=== PATIENT | male | born 1995 | race Caucasian/White ===

== ENCOUNTER 2023-06-11 10:55 | Emergency (ER) | payer OTHER, SELFPAY ==
[2023-06-11 10:57] VITALS: BP 141/75; PULSE 127; RESP 20; TEMP 38.2; O2SAT 96; BMI 33.5
--- NOTE | 2023-06-11 11:05 | ED.GENADUL1 ---
HPI - General Adult General Chief complaint: Back Pain/Injury Stated complaint: BACK PAIN Time Seen by Provider: 06/11/23 10:57 Source: patient Mode of arrival: ambulance Limitations: no limitations History of Present Illness HPI narrative: 28-year-old male presents for not feeling well. He didn't realize he had a fever but this was found on triage. For the past few days he's had increased lower back pain. He has a history of low back pain from herniated disc. There was no injury or dysuria or hematuria. He's had some body aches. No cough or vomiting or sore throat. Related Data Allergies Allergy/AdvReac Type Severity Reaction Status Date / Time No Known Drug Allergies Allergy Verified 06/11/23 11:00 Review of Systems ROS Narrative A ten point review of systems is negative except as noted above. Exam Narrative Exam Narrative: Nurses note and vital signs reviewed and patient is not hypoxic. General: The patient appears well and in no apparent distress. Patient is resting comfortably on cart. Skin: Warm, dry, no pallor noted. There is no rash noted. Head: Normocephalic, atraumatic Eye: Normal conjunctiva, no drainage Ears, Nose, Mouth, and Throat: oral mucosa is moist. Nares patent. Cardiovascular: Regular Rate and Rhythm, tachycardic Respiratory: Patient is in no distress, no accessory muscle use, lungs are clear to auscultation, no wheezing, rales or rhonchi Back: non-tender, no CVA tenderness bilaterally to percussion. GI: soft and nontender Musculoskeletal: The patient has no evidence of calf tenderness, no pitting edema, symmetrical pulses noted bilaterally Neurological: A&O, normal speech Psychiatric: Cooperative Constitutional Vital Signs, click to edit/add: Last Vital Signs Temp 99.2 F 06/11/23 12:15 Pulse 111 H 06/11/23 12:15 Resp 14 06/11/23 12:15 BP 101/46 L 06/11/23 12:15 Pulse Ox 96 06/11/23 12:15 O2 Del Method Room Air 06/11/23 12:15 Course Vital Signs Vital signs: Vital Signs Temperature 100.7 F H 06/11/23 10:57 Pulse Rate 127 H 06/11/23 10:57 Respiratory Rate 20 06/11/23 10:57 Blood Pressure 141/75 06/11/23 10:57 Pulse Oximetry 96 06/11/23 10:57 Temperature 99.2 F 06/11/23 12:15 Pulse Rate 111 H 06/11/23 12:15 Respiratory Rate 14 06/11/23 12:15 Blood Pressure 101/46 L 06/11/23 12:15 Pulse Oximetry 96 06/11/23 12:15 Oxygen Delivery Method Room Air 06/11/23 12:15 Medical Decision Making MDM Narrative Medical decision making narrative: workup including Covid test is negative. He was given IV fluids and Tylenol and his heart rate has come down as did his temperature. He feels improved and will be discharged home. My clinical impression is that he has a vviral illness and he was recommended Tylenol and Motrin. Antibiotic not indicated. Treatment diagnosis and follow-up were discussed with the patient. Differential Diagnosis Differential Diagnosis: Covid, urinary tract infection, viral illness Lab Data Lab results reviewed: Yes I reviewed the patient's lab results Labs: Lab Results 06/11/23 06/11/23 06/11/23 Range/Units 11:12 11:15 11:18 WBC 13.1 H (4.0-11.0) 10^3/uL RBC 5.16 (4.70-6.10) 10^6/uL Hgb 15.4 (14.0-18.0) g/dL Hct 45.1 (42.0-54.0) % MCV 87.4 (80.0-94.0) fL MCH 29.8 (25.9-34.0) pg MCHC 34.1 (29.9-35.2) g/dL RDW 12.2 (11.0-15.0) % Plt Count 276 (150-450) 10^3/uL MPV 9.7 (9.5-13.5) fL Neut % (Auto) 87.4 H (43.0-75.0) % Lymph % (Auto) 2.4 L (20.5-60.0) % [place] % (Auto) 8.5 (1.7-12.0) % Eos % (Auto) 0.7 L (0.9-7.0) % Baso % (Auto) 0.5 (0.2-2.0) % Neut # (Auto) 11.5 H (1.4-6.5) 10^3/uL Lymph # (Auto) 0.3 L (1.2-3.8) 10^3/uL [place] # (Auto) 1.1 H (0.3-0.8) 10^3/uL Eos # (Auto) 0.1 (0.0-0.7) 10^3/uL Baso # (Auto) 0.1 (0.0-0.1) 10^3/uL Abs Immat Gran (auto) 0.07 H (0.00-0.03) 10^3/uL Imm/Tot Granulo (auto) 0.5 (0.0-0.5) % Sodium 132 L (136-145) mmol/L Potassium 3.7 (3.5-5.1) mmol/L Chloride 99 (98-107) mmol/L Carbon Dioxide 27.0 (21.0-32.0) mmol/L Anion Gap 9.7 BUN 15.0 (7.0-18.0) mg/dL Creatinine 1.05 (0.70-1.30) mg/dL Est GFR ( Amer) >60 (>=60) Est GFR (Non-Af Amer) >60 (>=60) BUN/Creatinine Ratio 14.3 Glucose 82 (74-106) mg/dL Calcium 9.4 (8.5-10.1) mg/dL Urine Color Lt. yellow (YELLOW) Urine Clarity Clear (CLEAR) Urine pH 7.5 (5.0-9.0) Ur Specific [place] 1.020 (1.005-1.025) Urine Protein Negative (NEG/TRACE) mg/dL Urine Glucose (UA) Negative (NEGATIVE) mg/dL Urine Ketones Negative (NEGATIVE) mg/dL Urine Occult Blood Negative (NEGATIVE) Urine Nitrite Negative (NEGATIVE) Urine Bilirubin Negative (NEGATIVE) Urine Urobilinogen 0.2 (0.2-1.0) EU/dL Ur Leukocyte Esterase Negative (NEGATIVE) Urine RBC 0-2 (0-2) #/HPF Urine WBC 0-2 A (NONE SEEN) #/HPF Ur Squamous Epith Cells Rare (NONE/RARE) #/LPF Urine Crystals None seen (None Seen) #/HPF Urine Bacteria None seen (NONE SEEN) #/HPF Urine Casts None seen (NONE SEEN) #/LPF Urine Mucus Small A (NONE SEEN) SARS-CoV-2 (PCR) Negative (NEGATIVE) Discharge Plan Discharge Chief Complaint: Back Pain/Injury Clinical Impression: Viral illness Patient Disposition: Home, Self-Care Time of Disposition Decision: 12:18 Condition: Good Mode of Transportation: Private Vehicle Instructions: Viral Syndrome (ED) Stand Alone Forms: Portal Instructions Referrals: Physician,Non-Staff, MD [Primary Care Provider] - 1 week
[2023-06-11] MEDS: 0.9 % SODIUM CHLORIDE 1,000 ML 1000 ML IV (11:20)
[2023-06-11] MEDS: ACETAMINOPHEN 325 MG TABLET 650 MG PO (11:22)
[2023-06-11] MEDS: MORPHINE SULFATE 4 MG/ML VIAL IV (11:27)
[2023-06-11 11:28] LABS: Basophils Absolute Auto 0.1 10^3/uL (0.0-0.1); Basophils Percent Auto 0.5 % (0.2-2.0); Eosinophils Absolute Auto 0.1 10^3/uL (0.0-0.7); Eosinophils Percent Auto 0.7 % (0.9-7.0); Hematocrit 45.1 % (42.0-54.0); Hemoglobin 15.4 g/dL (14.0-18.0); Immature Granulocytes Abs Auto 0.07 10^3/uL (0.00-0.03); Immature Granulocytes Pct Auto 0.5 % (0.0-0.5); Lymphocytes Absolute Auto 0.3 10^3/uL (1.2-3.8); Lymphocytes Percent Auto 2.4 % (20.5-60.0); Mean Corpuscular HGB Conc 34.1 g/dL (29.9-35.2); Mean Corpuscular Hemoglobin 29.8 pg (25.9-34.0); Mean Corpuscular Volume 87.4 fL (80.0-94.0); Mean Platelet Volume 9.7 fL (9.5-13.5); Monocytes Absolute Auto 1.1 10^3/uL (0.3-0.8); Monocytes Percent Auto 8.5 % (1.7-12.0); Neutrophils Absolute Auto 11.5 10^3/uL (1.4-6.5); Neutrophils Percent Auto 87.4 % (43.0-75.0); Platelet Count 276 10^3/uL (150-450); Red Blood Count 5.16 10^6/uL (4.70-6.10); Red Cell Distribution Width 12.2 % (11.0-15.0); White Blood Count 13.1 10^3/uL (4.0-11.0)
[2023-06-11 11:34] LABS: Anion Gap 9.7; BUN Creatinine Ratio 14.3; Calcium 9.4 mg/dL (8.5-10.1); Chloride 99 mmol/L (98-107); Estimated GFR (African America >60 (>=60); Estimated GFR (Non-African Ame >60 (>=60); Glucose 82 mg/dL (74-106); Potassium 3.7 mmol/L (3.5-5.1); Sodium 132 mmol/L (136-145)
[2023-06-11 11:41] LABS: Bilirubin Urine NEGATIVE (NEGATIVE); Blood Urine NEGATIVE (NEGATIVE); Clarity Urine CLEAR (CLEAR); Color Urine LT. YELLOW (YELLOW); Glucose Urine UA NEGATIVE (NEGATIVE); Ketones Urine NEGATIVE (NEGATIVE); Leukocyte Esterase Urine NEGATIVE (NEGATIVE); Nitrite Urine NEGATIVE (NEGATIVE); Protein Urine NEGATIVE (NEG/TRACE); Urobilinogen Urine 0.2 EU/dL (0.2-1.0); pH Urine 7.5 (5.0-9.0)
[2023-06-11 11:45] LABS: Bacteria Urine NONE SEEN #/HPF (NONE SEEN); RBC Urine 0-2 #/HPF (0-2); WBC Urine 0-2 #/HPF (NONE SEEN)
[2023-06-11 11:46] LABS: Cast Seen? NONE SEEN #/LPF (NONE SEEN); Crystals Seen? None Seen #/HPF (None Seen); Mucus Urine SMALL (NONE SEEN); Squamous Epithelial Cell Urine RARE #/LPF (NONE/RARE)
[2023-06-11 11:50] LABS: SARS-CoV-2 Ag NEGATIVE (NEGATIVE)
[2023-06-11 12:15] VITALS: BP 101/46; PULSE 111; RESP 14; TEMP 37.3; O2SAT 96
[2023-06-12 11:02] LABS: SARS-CoV-2 NAA INVALID (NOT DETECTE)
--- OUTSIDE RECORDS SUMMARY | 2023-07-22 13:58 | XMS_ITS | CCD ---
Author Name Unknown Address [address] [place] [address] Organization [facility] Care Team Providers Care Process Control Operator Name Role Phone Link, Micah Rivera Primary Care Physician [phone] Link, DO Micah Rivera Primary Care Provider [phone] MD Yasmany Parson Attending Provider [phone] SHEBA Galicia Emergency Provider [phone] ALLI Marrero Attending Provider [phone] DO Steve Ro Emergency Provider Link, DO Micah Rivera Primary Care Provider [phone] Link, DO Micah Rivera Attending Provider Link, DO Micah C Primary Care Provider [phone] MD Oleg Rondon Jr Emergency Provider Kapil Robledo Unavailable Link, DO Micah Rivera Primary Care Provider [phone] MD Dung Todd Emergency Provider MD Saran Kaba Admit Provider MD Saran Kaba Attending Provider KATHERIN JAVIER Referring Unavailable LINK, MICAH Primary Care Unavailable Link, Micah Primary Care Provider LINK, MICAH Primary Care Unavailable Lyly Joseph Unavailable Jennifer Marrero Attending Unavailable Jennifer Marrero Admitting Unavailable Micah Frost Primary Care Unavailable Sandra Galicia Attending Unavailable Sandra Galicia Admitting Unavailable Link, Micah C Primary Care Unavailable Link, Micah C Primary Care Unavailable Saran Kaba Attending UnavailSaran Louie Admitting UnavailMicah Grullon Primary Care Unavailable Oleg Rondon Jr Admitting Unavailable Oleg Rondon Jr Attending Unavailable Steve Ro Admitting Unavailable Steve Ro Attending Unavailable Micah Frost Primary Care Unavailable Steve Ro Admitting Unavailable Steve Ro Attending Unavailable Micah Frost Primary Care Unavailable Micah Frost Primary Care Unavailable Santosh Micah Nicole Admitting Unavailable Micah Frost Attending Unavailable Dara Gant Unavailable Allergies Allergy Classification Reported Allergen(s) Allergy Type Date of Onset Reaction(s) Facility (1 source) Grass pollen Propensity to adverse reactions to drug 01-25-2022 [facility] Medications Current Medications Medication Drug Class(es) Dates Sig (Normalized) Sig (Original) amoxicillin 500 mg oral capsule (1 source) Penicillin-class Antibacterial Start: 05-16-2023 take 1 capsule by mouth every eight hours Amoxicillin 500 MG 1 capsule Orally tid for 10 day(s) May, Active celecoxib (1 source) Nonsteroidal Anti-inflammatory Drug CeleBREX Active cyclobenzaprine hydrochloride 5 mg oral tablet (2 sources) Muscle Relaxant Start: 05-22-2022 End: 05-27-2022 take 1 tablet by mouth twice daily as needed for muscle spasms cyclobenzaprine (FLEXERIL) 5 MG tablet Take 1 tablet by mouth 2 times daily as needed for Muscle spasms 10 tablet 0 05/22/2022 05/27/2022 Active Start: 05-22-2022 End: 05-22-2022 cyclobenzaprine (FLEXERIL) t ablet 10 mg 12 hr dextromethorphan hydrobromide 30 mg / guaiFENesin 600 mg extended release oral tablet (1 source) Uncompetitive U-simcbb-S-aspartate Receptor Antagonist, Sigma-1 Agonist Start: 06-03-2022 take 1 tablet by mouth every twelve hours Mucinex DM 30-600 MG 1 tablet as needed Orally every 12 hrs May, Active lidocaine 40 mg/ml topical cream (1 source) Antiarrhythmic, Amide Local Anesthetic Start: 03-13-2022 lidocaine (LMX) 4 % cream Indications: Lumbar radiculopathy Apply a half dollar sized amount to intact skin topically up to twice daily as needed for pain 45 g 1 03/13/2022 Active methylPREDNISolone 4 mg oral tablet (2 sources) Corticosteroid Start: 06-03-2022 methylPREDNISolone 4 MG as directed Orally Once a day for 6 days May, Active Start: 05-22-2022 methylPREDNISo lone (MEDROL, TAMELA,) 4 MG tablet Take 1 tablet by mouth See Admin Instructions Take by mouth. 21 tablet 0 05/22/2022 Active 24 hr nicotine 0.875 mg/hr transdermal system (2 sources) Cholinergic Nicotinic Agonist Start: 03-25-2022 Nicotine Active 1 EACH TRANSDERML Daily March 25, 2022 12:00am Start: 03-25-2022 Nicotine Activ e 1 EACH TRANSDERML Daily March 25, 2022 12:00am omeprazole 20 mg delayed release oral capsule (1 source) Proton Pump Inhibitor take 2 capsules by mouth once daily omeprazole (PRILOSEC) 20 MG delayed release capsule Take 40 mg by mouth daily 0 Active pantoprazole 40 mg extended release oral tablet (1 source) Proton Pump Inhibitor Start: 0 take 1 tablet by mouth once daily pantoprazole 40 mg Oral EC Tab 40 mg = 1 tab(s), Oral, Daily, # 14 tab(s), Refills(s) 0 Start Date: 02/13/20 Status: Ordered predniSONE 10 mg oral tablet (15 sources) Start: 2 predniSONE 10 MG 3 tablets a day for 3 days, 2 tablets a day for 3 days, 1 tablets a day for 3 days Orally Once a day for 9 day(s) Nov, Active Start: 09-09-2021 End: 10-27-2021 take 20 mg by mouth once daily Prednisone Discontinued 20 MG PO Daily September 09, 2021 1:00am October 27, 2021 11:25pm Start: 04-12-2021 End: 09-09-2021 take 50 mg by mouth once daily Prednisone Discontinued 50 MG PO Daily 12 06April 12, 2021 12:00am September 09, 2021 7:27pm sertraline 50 mg oral tablet (1 source) Serotonin Reuptake Inhibitor Start: 02-08-2020 take 1 tablet by mouth once daily sertraline 50 mg Tab 50 mg = 1 tab(s), Oral, Daily, Refills(s) 0 Start Date: 02/08/20 Status: Ordered traZODone hydrochloride 50 mg oral tablet (2 sources) Serotonin Reuptake Inhibitor Start: 03-25-2022 take 50 mg by mouth once daily at bedtime Trazodone Active 50 MG PO Daily at bedtime March 25, 2022 12:00am Start: 03-25-2022 take 50 mg by mouth once daily at bedtime Trazodone Active 50 MG PO Daily at bedtime March 25, 2022 12:00am 24 hr venlafaxine 75 mg extended release oral capsule (13 sources) Serotonin and Norepinephrine Reuptake Inhibitor Start: 03-25-2022 take 75 mg by mouth once daily Venlafaxine Active 75 MG PO Daily March 25, 2022 12:00am Start: 03-25-2022 take 75 mg by mouth once daily Venlafaxine Active 75 MG PO Daily March 25, 2022 12:00am Start: 09-09-2021 End: 03-22-2022 take 37.5 mg by mouth once daily Venlafaxine Discontinued 37.5 MG PO Daily September 09, 2021 1:00am March 22, 2022 5:53pm take 1 capsule by [facility] every twenty-four hours Effexor XR 75 MG 1 capsule with food Orally Once a day Active Effexor Active Completed/Discontinued Medications Medication Drug Class(es) Dates Sig (Normalized) Sig (Original) acetaminophen 325 mg / HYDROcodone bitartrate 5 mg oral tablet (10 sources) Opioid Agonist Start: 01-07-2022 End: 03-22-2022 take 1 tablet by mouth every six hours Hydrocodone-Acetami nophen Discontinued 1 TAB PO Q6H 10 January 07, 2022 March 22, 2022 5:53pm Start: 10-28-2021 End: 01-07-2022 take 1 tablet by mouth three times daily Hydrocodone-Acetaminophen Discontinued 1 TAB PO Three times daily 10 October 28, 2021 January 07, 2022 2:45am bismuth subsalicylate 262 mg oral tablet (7 sources) Bismuth Start: 10-28-2021 End: 01-07-2022 take 2 tablets by mouth four times daily Bismuth Subsalicylate (Pepto-Bismol) 262 mg tablet,chewable Discontinued 2 TAB PO Four times daily 24 3 October 28, 2021 12:00am January 07, 2022 2:45am ciprofloxacin 500 mg oral tablet (6 sources) Quinolone Antimicrobial Start: 10-28-2021 End: 01-07-2022 take 1 tablet by mouth every two hours Ciprofloxacin Hcl (Cipro) 500 mg tablet Discontinued 500 MG PO Twice daily October 28, 2021 12:00am January 07, 2022 2:45am administer dose at least 2 hrs before/6 hrs after dairy products, calcium, zinc, and/or iron-containing products diclofenac sodium 75 mg delayed release oral tablet (3 sources) Nonsteroidal Anti-inflammatory Drug Start: 01-07-2022 End: 03-22-2022 take 75 mg by mouth every twelve hours Diclofenac Sodium Discontinued 75 MG PO Q12H January 07, 2022 12:00am March 22, 2022 5:53pm dicyclomine hydrochloride 10 mg oral capsule (7 sources) Anticholinergic Start: 10-28-2021 End: 03-22-2022 take 10 mg by mouth twice daily Dicyclomine Discontinued 10 MG PO Twice daily October 28, 2021 12:00am March 22, 2022 5:53pm ergocalciferol 1.25 mg oral capsule (7 sources) Provitamin D2 Compound Start: 09-09-2021 End: 10-27-2021 take 1 capsule by mouth once daily Ergocalciferol (Vitamin D2) (Vitamin D2) 1,250 mcg (50,000 unit) capsule Discontinued 1250 MCG PO Daily September 09, 2021 1:00am October 27, 2021 11:25pm hydrocortisone 10 mg/ml / neomycin 3.5 mg/ml / polymyxin b 15310 unt/ml otic solution (2 sources) Aminoglycoside Antibacterial, Polymyxin-class Antibacterial, Corticosteroid Start: 10-12-2022 Neomycin-Polymyxin- HC 3.5-55365-4 4 drops into affected ear Otic Three times a day for 7 day(s) Oct, Not-Taking 2 ml ketorolac tromethamine 30 mg/ml cartridge (1 source) Nonsteroidal Anti-inflammatory Drug, Cyclooxygenase Inhibitor Start: 05-22-2022 End: 05-22-2022 ketorolac (TORADOL) injection 60 mg meclizine hydrochloride 12.5 mg oral tablet (8 sources) Antiemetic Start: 05-22-2022 End: 05-22-2022 meclizine (ANTIVERT) tablet 12.5 mg Start: 04-10-2021 End: 09-09-2021 take 25 mg by mouth three times daily Meclizine Discontinued 25 MG PO Three times daily April 10, 2021 12:00am September 09, 2021 7:27pm ondansetron 4 mg disintegrating oral tablet (7 sources) Serotonin-3 Receptor Antagonist Start: 10-28-2021 End: 01-07-2022 take 4 mg by mouth every six hours Ondansetron Discontinued 4 MG PO Q6H October 28, 2021 12:00am January 07, 2022 2:45am traMADol hydrochloride 50 mg oral tablet (7 sources) Opioid Agonist Start: 09-09-2021 End: 10-27-2021 take 50 mg by mouth once daily Tramadol Discontinued 50 MG PO Daily September 09, 2021 1:00am October 27, 2021 11:25pm Problems Active Problems Problem Classification Problem Date Documented Date Episodic/Chronic Conditions associated with dizziness or vertigo (15 sources) Dizziness; Translations: [Dizziness and giddiness] 04-10-2021 Episodic Headache; including migraine (7 sources) Migraine; Translations: [Migraine, unspecified, not intractable, without status migrainosus] 04-12-2021 Chronic Immunizations and screening for infectious disease (1 source) Contact with and (suspected) exposure to other viral communicable diseases Episodic Mood disorders (5 sources) Depressive disorder; Translations: [Depression] Onset: 03-22-2022 03-23-2022 Chronic Mood disorders (1 source) Mood disorders; Translations: [Depression, unspecified] Onset: 03-22-2022 Nausea and vomiting (6 sources) Vomiting; Translations: [Vomiting, unspecified] 10-28-2021 Episodic Noninfectious gastroenteritis (7 sources) Enteritis of small intestine; Translations: [Noninfective gastroenteritis and colitis, unspecified] 10-28-2021 Episodic Osteoarthritis (4 sources) Arthropathy of left hip joint; 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, left hip] Chronic Other circulatory disease (1 source) Elevated blood-pressure reading, without diagnosis of hypertension Episodic Other ear and sense organ disorders (7 sources) Bilateral tinnitus; Translations: [Tinnitus, bilateral] 04-12-2021 Episodic Other ear and sense organ disorders (1 source) Impacted cerumen, bilateral Episodic Other non-traumatic joint disorders (7 sources) Hip pain; Translations: [Pain in left hip] 09-09-2021 Episodic Other upper respiratory infections (3 sources) Acute laryngitis; Translations: [Acute pharyngitis, unspecified] Episodic Residual codes; unclassified (1 source) Pain, unspecified; Translations: [Pain, unspecified] Onset: 04-25-2022 Episodic Spondylosis; intervertebral disc disorders; other back problems (7 sources) Prolapsed lumbar intervertebral disc; Translations: [Other intervertebral disc displacement, lumbar region] 01-07-2022 Chronic Spondylosis; intervertebral disc disorders; other back problems (15 sources) Stenosis of lumbar vertebral foramen; Translations: [Spinal stenosis, lumbar region without neurogenic claudication] Onset: 01-07-2022 10-28-2021 Episodic Unclassified (1 source) 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; Translations: [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] Onset: 11-12-2021 Unclassified (1 source) R11.10 - Vomiting, unspecified; Translations: [R11.10 - Vomiting, unspecified] Onset: 10-28-2021 Unclassified (1 source) R10.30 - Lower abdominal pain, unspecified; Translations: [R10.30 - Lower abdominal pain, unspecified] Onset: 10-28-2021 Unclassified (1 source) M62.830 - Muscle spasm of back; Translations: [M62.830 - Muscle spasm of back] Onset: 09-18-2021 Unclassified (1 source) M25.552 - Pain in left hip; Translations: [M25.552 - Pain in left hip] Onset: 09-09-2021 Past or Other Problems Problem Classification Problem Date Documented Da te Episodic/Chronic Abdominal pain (11 sources) Abdominal pain; Translations: [Unspecified abdominal pain] Onset: 10-28-2021 10-28-2021 Episodic Results Test Name Value Interpretation Reference Range Facil ity Quick Strepon 05-16-2023 S. pyogenes Org specific cx Ql (Throat) Negative [facility] leemail Other Quick Strep [facility] P [employer] Other COVID Quick Testingon 2021 Result Negative [facility] ONtheAIR Other Quick Strepon 06-03-2022 S. pyogenes Org specific cx Ql (Throat) Negative [facility] leemail Other Quick Strep [facility] [employer] Other ECG 12 lead ECGon 03-23-2022 ECG 12 lead ECG [facility] [place] [address] [place] [address] Electrocardiograph Report Signed Patient: Harry Vargas MR#: [id number] : 1995 Acct:[id number] Age/Sex: 27 / M ADM Date: 03/22/22 Loc: Room: [address] [place] [address] Type: DIS IN Attending Dr: Saran Kaba MD Ordering Provider: Alcon Kaba MD Date of Service: 03/23/22 ECG/ECG 12 lead ECG: antipsychotics Copies to: Test Reason : Blood Pressure : / mmHG Vent. Rate : 082 BPM Atrial Rate : 082 BPM P-R Int : 150 ms QRS Dur : 090 ms QT Int : 360 ms P-R-T Axes : 069 086 047 degrees QTc Int : 420 ms Normal sinus rhythm with sinus arrhythmia Normal ECG When compared with ECG of 10-APR-2021 00:46, No significant change was found Confirmed by OLEG LI MD ([id number]) on 03/24/2022 12:29:51 PM Referred By: Electronically Signed By:OLEG LI MD Transcribed By: MUS Signed By Oleg Li MD [id number] Normal [facility] Amphetamine Screen Ql (U)Ord ered By: Dung Todd on 03-22-2022 Amphetamines Ql (U) Negative Negative [facility] Automated erythrocytes count in urine sediment (number/area)Ordered By: Dung Todd on 03-22-2022 RBC Auto (Urine sed) [#/Area] 1-2 [HPF] 0-4 [facility] Automated leukocytes count i n urine sediment (number/area)Ordered By: Dung Todd on 03-22-2022 WBC Auto (Urine sed) [#/Area] 0-1 [HPF] 0-4 [facility] Barbiturates [Presence] in U rineOrdered By: Dung Todd on 03-22-2022 Barbiturates Ql (U) Negative Negative [facility] Basophils Auto (Bld) [#/Vol] Ordered By: Dung Todd on 03-22-2022 Basophils (Bld) [#/Vol] 0.1 10*3/uL 0.0-0.2 [facility] Basophils/100 WBC Auto (Bld) Ordered By: Dung Todd on 03-22-2022 Basophils/100 WBC (Bld) 0.5 % . F [facility] Benzodiazepines [Presence] i n UrineOrdered By: Dung Todd on 03-22-2022 Benzodiazepines Ql (U) Negative Negative [facility] Bilirubin Test strip Ql (U)O rdered By: Dung Todd on 03-22-2022 Bilirubin Ql (U) Negative Negative [facility] Blood hemoglobin measurement (mass/volume)Ordered By: Dung Todd on 03-22-2022 Hemoglobin (Bld) [Mass/Vol] 17.2 g/dL 13.0-17. 0 [facility] Blood leukocytes automated c ount (number/volume)Ordered By: Dung Todd on 03-22-2022 WBC (Bld) [#/Vol] 11.2 10*3/uL 4.5-11.0 [facility] Body fluid albumin measureme nt (mass/volume)Ordered By: Dung Todd on 03-22-2022 Albumin (Body fld) [Mass/Vol] 4.4 g/dL 3.2-5. 5 [facility] COVID-19 Antigenon 2 COVID-19 Antigen Healthcare Worker?: N Reference Range: Negative Negative results, from patients with symptom onset beyond five days, should be treated as presumptive and confirmation with a molecular assay, if necessary, for patient management, may be performed. Negative results do not rule out COVID-19 and should not be used as the sole basis for treatment or patient management decisions, including infection control decisions. Negative results should be considered in the context of a patient's recent exposures, history and the presence of clinical signs and symptoms consistent with COVID-19. The Sonia SARS Antigen CHERIE does not differentiate between SARS-CoV and SARS-CoV-2. This test was developed and its performance characteristic determined by [employer] and validated at [facility]. This test has not been FDA cleared or approved. This test has been authorized by FDA under an Emergency Use Authorization (EUA). This test has been validated in accordance with the FDA's Guidance Document (Policy for Diagnostics Testing in Laboratories Certified to Perform High Complexity Testing under CLIA prior to Emergency Use Authorization for Coronavirus Disease-2019 during the Public Health Emergency) issued on November 04, 2019. This test is only authorized for the duration of time the declaration that circumstances exist justifying the authorization of the emergency use of in vitro diagnostic tests for detection of SARS-CoV-2 virus and/or diagnosis of COVID-19 infection under section 564(b)(1) of the Act, 21 U.S.C. 360bbb-3(b)(1), unless the authorization is terminated or revoked sooner. SARS-CoV+SARS-CoV-2 (COVID-19) Ag [Presence] in Respiratory specimen by Rapid immunoassay Negative for SARS Antigen by CHERIE PERFORMED BY: [place] [id number] PATHOLOGIST INTERNET ARCHITECT ANASTACIO CHAO M.D. [facility] Comment on above: Performed By: #### C DT #### [address] COVID-19 SOFIAOrdered By: Kellie Todd on 03-22-2022 SARS-CoV+SARS-CoV-2 (COVID-1 9) Ag IA.rapid Ql (Resp) Negative Negative [facility] Comment on above: This is a duplicate Sonia SARS Antigen (CHERIE) result to be used for statistical tracking purpose only. Cannabinoids [Presence] in U rine by Screen methodOrdered By: Dung Todd on 03-22-2022 Cannabinoids Screen Ql (U) Negative Negative [facility] Comment on above: These are unconfirme d results and should not be used for legal purposes. Drug Cut-Off Concentration: AMPH 1000 ng/mL CLAIRE 200 ng/mL ABIODUN 200 ng/mL COCM 300 ng/mL OP 300 ng/mL PCP 25 ng/mL THC 20 ng/mL Cholesterol [Mass/volume] in Serum or PlasmaOrdered By: Alcon Kaba on 03-22-2022 Cholesterol [Mass/Vol] 193 mg/dL 140-200 [facility] Comment on above: Chol less than 200 m g/dl low risk Chol 201-239 mg/dl borderline risk Chol 240 mg/dl and greater high risk Cholesterol in LDL Calc [Mas s/Vol]Ordered By: Alcon Kaba on 03-22-2022 Cholesterol in LDL [Mass/Vol] 83 mg/dL 0-100 [facility] Comment on above: LDL ATP III CLASSIFI CATION LDL less than 100 mg/dL Optimal LDL 100-129 mg/dL Near or above optimal LDL 130-159 mg/dL Borderline high LDL 160-189 mg/dL High LDL greater than 189 mg/dL Very high Cholesterol in VLDL Calc [Ma ss/Vol]Ordered By: Alcon Kaba on 03-22-2022 Cholesterol in VLDL [Mass/Vol] 69 mg/dL [facility] Color Auto (U)Ordered By: Kellie Todd on 03-22-2022 Color (U) Yellow Yellow [facility] Complete Blood Count Auto Di ffon 03-22-2022 Basophils (Bld) [#/Vol] 0.1 10*3/uL Normal 0.0-0.2 [facility] Comment on above: Result Comment: PERF ORMED BY: [place] [id number] PATHOLOGIST INTERNET ARCHITECT ANASTACIO CHAO M.D. Performed By: #### R SHAQ PANEL UPP., BIOFIRECOVNOTDE #### [facility] [address] Basophils/100 WBC (Bld) 0.5 % Normal . F [facility] Comment on above: Performed By: #### R SHAQ PANEL UPP., BIOFIRECOVNOTDE #### [address] Eosinophils (Bld) [#/Vol] 0.1 10*3/uL Normal 0.0-0.45 [facility] Comment on above: Performed By: #### R SHAQ PANEL UPP., BIOFIRECOVNOTDE #### [address] Eosinophils/100 WBC (Bld) 0.9 % Normal . [facility] Comment on above: Performed By: #### R SHAQ PANEL UPP., BIOFIRECOVNOTDE #### [address] Erythrocyte distribution wid th (RBC) [Ratio] 12.7 % Normal 12.0-14.8 [facility] Comment on above: Performed By: #### R SHAQ PANEL UPP., BIOFIRECOVNOTDE #### [address] Hematocrit (Bld) [Volume fraction] 50.2 % High 38.8-50.0 [facility] Comment on above: Performed By: #### R SHAQ PANEL UPP., BIOFIRECOVNOTDE #### [address] Hemoglobin (Bld) [Mass/Vol] 17.2 g/dL High 13.0-17. 0 [facility] Comment on above: Performed By: #### R SHAQ PANEL UPP., BIOFIRECOVNOTDE #### [address] Lymphocytes (Bld) [#/Vol] 2.6 10*3/uL Normal 1.00-4.8 [facility] Comment on above: Performed By: #### R SHAQ PANEL UPP., BIOFIRECOVNOTDE #### [address] Lymphocytes/100 WBC (Bld) 23.7 % Normal . [facility] Comment on above: Performed By: #### R SHAQ PANEL UPP., BIOFIRECOVNOTDE #### [address] MCH (RBC) [Entitic mass] 30.0 pg Normal 27.5-35.2 [facility] Comment on above: Performed By: #### R SHAQ PANEL UPP., BIOFIRECOVNOTDE #### [address] MCV (RBC) [Entitic vol] 87.3 fL Normal 83.5-101 F [facility] Comment on above: Performed By: #### R SHAQ PANEL UPP., BIOFIRECOVNOTDE #### [address] Mean Corpuscular HGB Conc 34.4 g/dL Normal 32.5-35.6 [facility] Comment on above: Performed By: #### R SHAQ PANEL UPP., BIOFIRECOVNOTDE #### [address] Monocytes (Bld) [#/Vol] 1.1 10*3/uL High 0.0-0.8 [facility] Comment on above: Performed By: #### R SHAQ PANEL UPP., BIOFIRECOVNOTDE #### [address] Monocytes/100 WBC (Bld) 9.8 % Normal . F [facility] Comment on above: Performed By: #### R SHAQ PANEL UPP., BIOFIRECOVNOTDE #### [address] Neutrophils (Bld) [#/Vol] 7.3 10*3/uL Normal 1.8-7.7 [facility] Comment on above: Performed By: #### R SHAQ PANEL UPP., BIOFIRECOVNOTDE #### [address] Neutrophils/100 WBC (Bld) 65.1 % Normal . [facility] Comment on above: Performed By: #### R SHAQ PANEL UPP., BIOFIRECOVNOTDE #### [address] Nucleated RBC/100 WBC (Bld) [Ratio] 0.3 % Normal 0-0.5 [facility] Comment on above: Performed By: #### R SHAQ PANEL UPP., BIOFIRECOVNOTDE #### [address] Platelet mean volume (Bld) [Entitic vol] 8.1 fL Normal 6.6-10.1 [facility] Comment on above: Performed By: #### R SHAQ PANEL UPP., BIOFIRECOVNOTDE #### [address] Platelets (Bld) [#/Vol] 344 10*3/uL Normal 150-450 [facility] Comment on above: Performed By: #### R SHAQ PANEL UPP., BIOFIRECOVNOTDE #### [address] RBC (Bld) [#/Vol] 5.75 10*6/uL High 3.90-5.60 [facility] Comment on above: Performed By: #### R SHAQ PANEL UPP., BIOFIRECOVNOTDE #### [address] WBC (Bld) [#/Vol] 11.2 10*3/uL High 4.5-11.0 [facility] Comment on above: Performed By: #### R SHAQ PANEL UPP., BIOFIRECOVNOTDE #### [address] Comprehensive Metabolic Pane cherise 03-22-2022 Albumin [Mass/Vol] 4.4 g/dL Normal 3.2-5.5 [facility] Comment on above: Performed By: #### R SHAQ PANEL UPP., BIOFIRECOVNOTDE #### [address] Albumin/Globulin [Mass ratio] 1.4 {ratio} Normal [facility] Comment on above: Performed By: #### R SHAQ PANEL UPP., BIOFIRECOVNOTDE #### [address] ALP [Catalytic activity/Vol] 29 U/L Low 32-92 [facility] Comment on above: Performed By: #### R SHAQ PANEL UPP., BIOFIRECOVNOTDE #### [address] ALT [Catalytic activity/Vol] 43 U/L Normal 10-60 [facility] Comment on above: Performed By: #### R SHAQ PANEL UPP., BIOFIRECOVNOTDE #### [address] AST [Catalytic activity/Vol] 28 U/L Normal 10-42 [facility] Comment on above: Performed By: #### R SHAQ PANEL UPP., BIOFIRECOVNOTDE #### [address] Bilirubin [Mass/Vol] 1.3 mg/dL High 0.3-1.2 [facility] Comment on above: Result Comment: Samp les from patients who have taken Naproxen have shown spurious elevation in Total Bilirubin levels. A metabolite of Naproxen, O-desmethylnaproxen, has been shown to interfere with the Jendrassik-Grof method for measuring Total Bilirubin. Performed By: #### R SHAQ PANEL UPP., BIOFIRECOVNOTDE #### [address] Calcium [Mass/Vol] 9.7 mg/dL Normal 8.2-10.2 [facility] Comment on above: Performed By: #### R SHAQ PANEL UPP., BIOFIRECOVNOTDE #### [place] [address] [place] Chloride [Moles/Vol] 98 mmol/L Normal 95-114 [facility] Comment on above: Performed By: #### R SHAQ PANEL UPP., BIOFIRECOVNOTDE #### [place] [address] [place] CO2 [Moles/Vol] 24.3 mmol/L Normal 22.0-30.0 [facility] Comment on above: Performed By: #### R SHAQ PANEL UPP., BIOFIRECOVNOTDE #### [address] Creatinine [Mass/Vol] 0.91 mg/dL Normal 0.64-1.27 [facility] Comment on above: Performed By: #### R SHAQ PANEL UPP., BIOFIRECOVNOTDE #### [address] Creatinine Clr Calc Pharmacy 119.15 [facility] Comment on above: Result Comment: PERF ORMED BY: [place] [id number] PATHOLOGIST INTERNET ARCHITECT ANASTACIO CHAO M.D. Performed By: #### R SHAQ PANEL UPP., BIOFIRECOVNOTDE #### [address] Estimated GFR ( Tamara > 60 [facility] Comment on above: Result Comment: GFR estimated reference range: According to KDOQI guidelines, <60 ml/min/1.73m2 is sufficient to diagnose a patient with chronic kidney disease. Performed By: #### R SHAQ PANEL UPP., BIOFIRECOVNOTDE #### [address] Estimated GFR (Non- Am > 60 [facility] Comment on above: Performed By: #### R SHAQ PANEL UPP., BIOFIRECOVNOTDE #### [address] Globulin (S) [Mass/Vol] 3.1 g/dL Normal [facility] Comment on above: Performed By: #### R SHAQ PANEL UPP., BIOFIRECOVNOTDE #### [address] Glucose [Mass/Vol] 142 mg/dL High 70-100 [facility] Comment on above: Result Comment: [place] om Glucose Reference Range is dependent on time and content of last meal. Glucose of more than 200 mg/dL in a nonstressed, ambulatory subject supports the diagnosis of Diabetes Mellitus. ADA recommended reference range Performed By: #### R SHAQ PANEL UPP., BIOFIRECOVNOTDE #### [facility] [address] Potassium [Moles/Vol] 3.8 mmol/L Normal 3.5-5.1 [facility] Comment on above: Performed By: #### R SHAQ PANEL UPP., BIOFIRECOVNOTDE #### [address] Protein [Mass/Vol] 7.5 g/dL Normal 6.1-7.9 [facility] Comment on above: Performed By: #### R SHAQ PANEL UPP., BIOFIRECOVNOTDE #### [address] Sodium [Moles/Vol] 133 mmol/L Low 136-146 [facility] Comment on above: Performed By: #### R SHAQ PANEL UPP., BIOFIRECOVNOTDE #### [address] Urea nitrogen [Mass/Vol] 14 mg/dL Normal 9-23 [facility] Comment on above: Performed By: #### R SHAQ PANEL UPP., BIOFIRECOVNOTDE #### [address] Creatinine and Glomerular fi ltration rate.predicted panel (S/P/Bld)Ordered By: Dung Todd on 03-22-2022 Creatinine [Mass/Vol] 0.91 mg/dL 0.64-1.27 [facility] Dipstick and Microscopicon 0 03-22-2022 Appearance (U) Clear Normal Clear [facility] Comment on above: Order Comment: > or = to 3 loose/watery stools in the last 24 HRS? Y Is patient on promotility agents or tube feeding? N Performed By: #### C DT #### [address] Bacteria,Urine None Seen Normal None Seen [facility] Comment on above: Order Comment: > or = to 3 loose/watery stools in the last 24 HRS? Y Is patient on promotility agents or tube feeding? N Performed By: #### C DT #### [facility] [address] Bilirubin,Urine Negative Normal Negative [facility] Comment on above: Order Comment: > or = to 3 loose/watery stools in the last 24 HRS? Y Is patient on promotility agents or tube feeding? N Performed By: #### C DT #### [facility] [address] Color (U) Yellow Normal Yellow [facility] Comment on above: Order Comment: > or = to 3 loose/watery stools in the last 24 HRS? Y Is patient on promotility agents or tube feeding? N Performed By: #### C DT #### [facility] [address] Glucose Ql (U) 500 mg/dL High Normal [facility] Comment on above: Order Comment: > or = to 3 loose/watery stools in the last 24 HRS? Y Is patient on promotility agents or tube feeding? N Performed By: #### C DT #### [facility] [address] Hyaline Casts,Urine None Seen Normal 0-8 [facility] Comment on above: Order Comment: > or = to 3 loose/watery stools in the last 24 HRS? Y Is patient on promotility agents or tube feeding? N Result Comment: PERF ORMED BY: [facility] [address] [place] [address] PATHOLOGIST INTERNET ARCHITECT ANASTACIO CHAO M.D. Performed By: #### C DT #### [facility] [address] [place] [address] [place] Ketones Ql (U) Trace High Negative [facility] Comment on above: Order Comment: > or = to 3 loose/watery stools in the last 24 HRS? Y Is patient on promotility agents or tube feeding? N Performed By: #### C DT #### [facility] [address] Leukocyte esterase Test stri p Ql (U) Negative Normal Negative [facility] Comment on above: Order Comment: > or = to 3 loose/watery stools in the last 24 HRS? Y Is patient on promotility agents or tube feeding? N Performed By: #### C DT #### [facility] [address] [place] [address] [place] Nitrite,Urine Negative Normal Negative [facility] Comment on above: Order Comment: > or = to 3 loose/watery stools in the last 24 HRS? Y Is patient on promotility agents or tube feeding? N Performed By: #### C DT #### [facility] [address] Occult Blood,Urine Negative Normal Negative [facility] Comment on above: Order Comment: > or = to 3 loose/watery stools in the last 24 HRS? Y Is patient on promotility agents or tube feeding? N Result Comment: PERF ORMED BY: [place] [id number] PATHOLOGIST INTERNET ARCHITECT ANASTACIO CHAO M.D. Performed By: #### C DT #### [address] pH (U) 6.5 [pH] Normal 5.0-9.0 [facility] Comment on above: Order Comment: > or = to 3 loose/watery stools in the last 24 HRS? Y Is patient on promotility agents or tube feeding? N Performed By: #### C DT #### [facility] [address] [place] [address] [place] Protein,Urine Trace High Negative [facility] Comment on above: Order Comment: > or = to 3 loose/watery stools in the last 24 HRS? Y Is patient on promotility agents or tube feeding? N Performed By: #### C DT #### [facility] [address] [place] [address] [place] RBC,Urine 1-2 Normal 0-4 [facility] Comment on above: Order Comment: > or = to 3 loose/watery stools in the last 24 HRS? Y Is patient on promotility agents or tube feeding? N Performed By: #### C DT #### [address] Specificy [place],Urine 1.033 High 1.001-1.030 [facility] Comment on above: Order Comment: > or = to 3 loose/watery stools in the last 24 HRS? Y Is patient on promotility agents or tube feeding? N Performed By: #### C DT #### [address] Squamous Epithelial Cell,Urine None Seen Normal 0-2 [facility] Comment on above: Order Comment: > or = to 3 loose/watery stools in the last 24 HRS? Y Is patient on promotility agents or tube feeding? N Performed By: #### C DT #### [address] Urobilinogen,Urine Normal Normal Normal [facility] Comment on above: Order Comment: > or = to 3 loose/watery stools in the last 24 HRS? Y Is patient on promotility agents or tube feeding? N Performed By: #### C DT #### [address] WBC LM.HPF (Urine sed) [#/Area] 0 /[HPF] Normal 0-4 [facility] Comment on above: Order Comment: > or = to 3 loose/watery stools in the last 24 HRS? Y Is patient on promotility agents or tube feeding? N Performed By: #### C DT #### [place] [address] [place] Drug Screen,Urineon 03-22-20 Amphetamine Screen,Urine Negative Normal Negative [facility] Comment on above: Performed By: #### C DT #### [address] Barbiturate Screen,Urine Negative Normal Negative [facility] Comment on above: Performed By: #### C DT #### [facility] [address] [place] [address] [place] Benzodiazepines Screen,Urine Negative Normal Negativ e [facility] Comment on above: Performed By: #### C DT #### [address] Cannabinoid Screen,Urine Negative Normal Negative [facility] Comment on above: Result Comment: Thes e are unconfirmed results and should not be used for legal purposes. Drug Cut-Off Concentration: AMPH 1000 ng/mL CLAIRE 200 ng/mL ABIODUN 200 ng/mL COCM 300 ng/mL OP 300 ng/mL PCP 25 ng/mL THC 20 ng/mL PERFORMED BY: [place] [address] PATHOLOGIST INTERNET ARCHITECT ANASTACIO CHAO M.D. Performed By: #### C DT #### [address] Cocaine Screen,Urine Negative Normal Negative [facility] Comment on above: Performed By: #### C DT #### [address] Opiate Screen,Urine Negative Normal Negative [facility] Comment on above: Performed By: #### C DT #### [address] Phencyclidine Screen,Urine Negative Normal Negative [facility] Comment on above: Performed By: #### C DT #### [place] [address] [place] Eosinophils Auto (Bld) [#/Vo l]Ordered By: Dung Todd on 03-22-2022 Eosinophils (Bld) [#/Vol] 0.1 10*3/uL 0.0-0.45 [facility] Eosinophils/100 WBC Auto (Bl d)Ordered By: Dung Todd on 03-22-2022 Eosinophils/100 WBC (Bld) 0.9 % . [facility] Erythrocyte distribution wid th Auto (RBC) [Ratio]Ordered By: Dung Todd on 03-22-2022 Erythrocyte distribution wid th (RBC) [Ratio] 12.7 % 12.0-14.8 [facility] Estimated glomerular filtrat ion rate (GFR) non- AmericanOrdered By: Dung Todd on 03-22-2022 GFR/1.73 sq M.predicted leeanne g non-blacks MDRD (S/P/Bld) [Vol rate/Area] > 60 mL/Min [facility] Ethyl Alcohol Profileon 03-04 Ethanol [Mass/Vol] mg/dL Normal [facility] Comment on above: Performed By: #### R SHAQ PANEL UPP., BIOFIRECOVNOTDE #### [facility] [address] Percent Ethanol Not performed Normal [facility] Comment on above: Result Comment: PERF ORMED BY: [place] [id number] PATHOLOGIST INTERNET ARCHITECT ANASTACIO CHAO M.D. Performed By: #### R SHAQ PANEL UPP., BIOFIRECOVNOTDE #### [facility] [address] Globulin Calc (S) [Mass/Vol] Ordered By: Dung Todd on 03-22-2022 Globulin (S) [Mass/Vol] 3.1 g/dL [facility] Hematocrit Auto (Bld) [Volum e fraction]Ordered By: Dung Todd on 03-22-2022 Hematocrit (Bld) [Volume fraction] 50.2 % 3 8.8-50.0 [facility] Ketones Auto test strip (U) [Mass/Vol]Ordered By: Dung Todd on 03-22-2022 Ketones (U) [Mass/Vol] Trace Negative [facility] - Drug toxicology Ordered By: Dung Todd on 03-22-2022 Opiates Ql (U) Negative Negative [facility] - Hematology and Cell countsOrdered By: Dung Todd on 03-22-2022 Nucleated RBC/100 WBC (Bld) [Ratio] 0.3 % 0-0.5 [facility] - UrinalysisOrder ed By: Dung Todd on 03-22-2022 Hyaline casts LM Ql (Urine sed) None seen [LPF] 0-8 [facility] Lipid Panelon 03-22-2022 Cholesterol [Mass/Vol] 193 mg/dL Normal 140-200 [facility] Comment on above: Order Comment: > or = to 3 loose/watery stools in the last 24 HRS? Y Is patient on promotility agents or tube feeding? N Result Comment: Chol less than 200 mg/dl low risk Chol 201-239 mg/dl borderline risk Chol 240 mg/dl and greater high risk Performed By: #### C DT #### [facility] [address] Cholesterol in HDL [Mass/Vol] 41 mg/dL Normal 29-71 [facility] Comment on above: Order Comment: > or = to 3 loose/watery stools in the last 24 HRS? Y Is patient on promotility agents or tube feeding? N Result Comment: HDL CHOL ATP-III CLASSIFICATION Cardiovascular Risk HDL > or equal to 60 mg/dL LOW HDL < 40 mg/dL HIGH Performed By: #### C DT #### [facility] [address] Cholesterol.total/Cholestero l in HDL [Mass ratio] 4.7 {ratio} Normal <5.0 [facility] Comment on above: Order Comment: > or = to 3 loose/watery stools in the last 24 HRS? Y Is patient on promotility agents or tube feeding? N Performed By: #### C DT #### [facility] [address] [place] [address] [facility] LDL Cholesterol,Calculated 83 mg/dL Normal 0-100 [facility] Comment on above: Order Comment: > or = to 3 loose/watery stools in the last 24 HRS? Y Is patient on promotility agents or tube feeding? N Result Comment: LDL ATP III CLASSIFICATION LDL less than 100 mg/dL Optimal LDL 100-129 mg/dL Near or above optimal LDL 130-159 mg/dL Borderline high LDL 160-189 mg/dL High LDL greater than 189 mg/dL Very high Performed By: #### C DT #### [facility] [address] [place] [address] [place] Triglyceride w/Reflex 345 mg/dL High 35-149 [facility] Comment on above: Order Comment: > or = to 3 loose/watery stools in the last 24 HRS? Y Is patient on promotility agents or tube feeding? N Result Comment: TRIG ATP III CLASSIFICATION TRIG less than 150 mg/dL Normal TRIG 150-199 mg/dL Borderline high TRIG 200-500 mg/dL High TRIG greater than 500 mg/dL Very high Standard traceable to the Center for Disease Conrtrol and Prevention (CDC) test method. Performed By: #### C DT #### [facility] [address] VLDL CHOLESTEROL 69 mg/dL Normal [facility] Comment on above: Order Comment: > or = to 3 loose/watery stools in the last 24 HRS? Y Is patient on promotility agents or tube feeding? N Performed By: #### C DT #### [facility] [address] Lymphocytes Auto (Bld) [#/Vo l]Ordered By: Dung Todd on 03-22-2022 Lymphocytes (Bld) [#/Vol] 2.6 10*3/uL 1.00-4.8 [facility] Lymphocytes/100 WBC Auto (Bl d)Ordered By: Dung Todd on 03-22-2022 Lymphocytes/100 WBC (Bld) 23.7 % . [facility] MCH Auto (RBC) [Entitic mass ]Ordered By: Dung Todd on 03-22-2022 MCH (RBC) [Entitic mass] 30.0 pg 27.5-35.2 [facility] MCHC Auto (RBC) [Mass/Vol]Or dered By: Dung Todd on 03-22-2022 MCHC (RBC) [Mass/Vol] 34.4 g/dL 32.5-35.6 [facility] MCV Auto (RBC) [Entitic vol] Ordered By: Dung Todd on 03-22-2022 MCV (RBC) [Entitic vol] 87.3 fL 83.5-101 F [facility] Monocytes Auto (Bld) [#/Vol] Ordered By: Dung Todd on 03-22-2022 Monocytes (Bld) [#/Vol] 1.1 10*3/uL 0.0-0.8 [facility] Monocytes/100 WBC Auto (Bld) Ordered By: Dung Todd on 03-22-2022 Monocytes/100 WBC (Bld) 9.8 % . F [facility] Neutrophils Auto (Bld) [#/Vo l]Ordered By: Dung Todd on 03-22-2022 Neutrophils (Bld) [#/Vol] 7.3 10*3/uL 1.8-7.7 [facility] Neutrophils/100 WBC Auto (Bl d)Ordered By: Dung Todd on 03-22-2022 Neutrophils/100 WBC (Bld) 65.1 % . [facility] Nitrite Test strip Ql (U)Ord ered By: Dung Todd on 03-22-2022 Nitrite Ql (U) Negative Negative [facility] No Panel InformationOrdered By: Alcon Kaba on 03-22-2022 25-Hydroxy Vitamin D Total 14.0 ng/mL 30-100 [facility] Comment on above: VITAMIN D STATUS 25( [place])VITAMIN D RANGE (ng/mL) Deficient <20 Insufficient 20 to <30 Sufficient 30 to 100 Reference: Umm MF,Katherine NC, Kneton SEGURA, et al. Evaluation,treatment, and prevention of vitamin D deficiency; an Endocrine Society clinical practice guideline. JCEM. 2010; 96(7):1911-30. No Panel InformationOrdered By: Dung Todd on 03-22-2022 Estimated GFR () > 60 mL/Min [facility] Comment on above: GFR estimated refere nce range: According to KDOQI guidelines, <60 ml/min/1.73m2 is sufficient to diagnose a patient with chronic kidney disease. Pharmacy Creatinine Clearance (Chem 119.15 [facility] SARS Antigen (LFIA) [facility] Phencyclidine Screen Ql (U)O rdered By: Dung Todd on 03-22-2022 Phencyclidine Ql (U) Negative Negative [facility] Platelet mean volume Auto (B ld) [Entitic vol]Ordered By: Dung Todd on 03-22-2022 Platelet mean volume (Bld) [Entitic vol] 8.1 fL 6.6-10.1 [facility] Platelets Auto (Bld) [#/Vol] Ordered By: Dung Todd on 03-22-2022 Platelets (Bld) [#/Vol] 344 10*3/uL 150-450 [facility] Protein Auto test strip (U) [Mass/Vol]Ordered By: Dung Todd on 03-22-2022 Protein (U) [Mass/Vol] Trace mg/dL Negative F [facility] Protein [Mass/volume] in Ser um or PlasmaOrdered By: Dung Todd on 03-22-2022 Protein [Mass/Vol] 7.5 g/dL 6.1-7.9 [facility] RBC Auto (Bld) [#/Vol]Ordere d By: Dung Todd on 03-22-2022 RBC (Bld) [#/Vol] 5.75 10*6/uL 3.90-5.60 [facility] Serum or plasma alanine bhandari otransferase measurement without P-5'-P (enzymatic activiOrdered By: Dung Todd on 03-22-2022 ALT No additional P-5'-P [Ca talytic activity/Vol] 43 U/L 10-60 [facility] Serum or plasma albumin/glob ulin mass ratioOrdered By: Dung Todd on 03-22-2022 Albumin/Globulin [Mass ratio] 1.4 {ratio} [facility] Serum or plasma alkaline monico sphatase measurement (enzymatic activity/volume)Ordered By: Dung Todd on 03-22-2022 ALP [Catalytic activity/Vol] 29 U/L 32-92 [facility] Serum or plasma aspartate am inotransferase measurement (enzymatic activity/volume)Ordered By: Dung Todd on 03-22-2022 AST [Catalytic activity/Vol] 28 U/L 10-42 [facility] Serum or plasma calcium bobby urement (mass/volume)Ordered By: Dung Todd on 03-22-2022 Calcium [Mass/Vol] 9.7 mg/dL 8.2-10.2 [facility] Serum or plasma chloride fabian surement (moles/volume)Ordered By: Dung Todd on 03-22-2022 Chloride [Moles/Vol] 98 mmol/L 95-114 [facility] Serum or plasma ethanol bobby urement (mass/volume)Ordered By: Dugn Todd on 03-22-2022 Ethanol [Mass/Vol] mg/dL [facility] Ethanol [Mass/Vol] TNP [facility] Comment on above: Test not performed Serum or plasma glucose bobby urement (mass/volume)Ordered By: Dung Todd on 03-22-2022 Glucose [Mass/Vol] 142 mg/dL 70-100 [facility] Comment on above: ADA recommended refe rence range Random Glucose Reference Range is dependent on time and content of last meal. Glucose of more than 200 mg/dL in a nonstressed, ambulatory subject supports the diagnosis of Diabetes Mellitus. Serum or plasma high density lipoprotein (HDL) cholesterol measurementOrdered By: Alcon Kaba on 03-22-2022 Cholesterol in HDL [Mass/Vol] 41 mg/dL 29-71 [facility] Comment on above: HDL CHOL ATP-III CLA SSIFICATION Cardiovascular Risk HDL > or equal to 60 mg/dL LOW HDL < 40 mg/dL HIGH Serum or plasma potassium me asurement (moles/volume)Ordered By: Dung Todd on 03-22-2022 Potassium [Moles/Vol] 3.8 mmol/L 3.5-5.1 [facility] Serum or plasma sodium measu rement (moles/volume)Ordered By: Dung oTdd on 03-22-2022 Sodium [Moles/Vol] 133 mmol/L 136-146 [facility] Serum or plasma total biliru bin measurement (mass/volume)Ordered By: Dung Todd on 03-22-2022 Bilirubin [Mass/Vol] 1.3 mg/dL 0.3-1.2 [facility] Comment on above: Samples from patient s who have taken Naproxen have shown spurious elevation in Total Bilirubin levels. A metabolite of Naproxen, O-desmethylnaproxen, has been shown to interfere with the Alessandro-Amy method for measuring Total Bilirubin. Serum or plasma total carbon dioxide measurement (moles/volume)Ordered By: Dung Todd on 03-22-2022 CO2 [Moles/Vol] 24.3 mmol/L 22.0-30.0 [facility] Serum or plasma total choles terol/high density lipoprotein (HDL) cholesterol mass ratOrdered By: Alcon Kaba on 03-22-2022 Cholesterol.total/Cholestero l in HDL [Mass ratio] 4.7 {ratio} <5.0 [facility] Serum or plasma urea nitroge n measurement (mass/volume)Ordered By: Dung Todd on 03-22-2022 Urea nitrogen [Mass/Vol] 14 mg/dL 04-26 [facility] Sonia Ag Negativeon 03-22-20 Sonia Ag Negative Negative Normal Negative [facility] Comment on above: Result Comment: This is a duplicate Sonia SARS Antigen (CHERIE) result to be used for statistical tracking purpose only. PERFORMED BY: [place] [address] PATHOLOGIST INTERNET ARCHITECT ANASTACIO CHAO M.D. Performed By: #### C DT #### [address] Specific gravity Auto test s trip (U) [Rel density]Ordered By: Dung Todd on 03-22-2022 Specific gravity (U) [Rel density] 1.033 1.001-1.030 [facility] Squamous epithelial cells de tection in urine sediment by light microscopyOrdered By: Dung Todd on 03-22-2022 Epithelial cells.squamous LM Ql (Urine sed) None seen [HPF] 0-2 [facility] TSH DL <= 0.005 mIU/L QnOrde red By: Alcon Kaba on 03-22-2022 TSH Qn 1.02 m[IU]/L 0.45-5.33 [facility] Thyroid Stim Hormone w/Rflxo n 03-22-2022 Thyroid Stim Hormone w/Rflx 1.02 u[iU]/mL Normal 0.45-5.33 [facility] Comment on above: Order Comment: > or = to 3 loose/watery stools in the last 24 HRS? Y Is patient on promotility agents or tube feeding? N Performed By: #### C DT #### [address] Triglyceride [Mass/volume] i n Serum or PlasmaOrdered By: Alcon Kaba on 03-22-2022 Triglyceride [Mass/Vol] 345 mg/dL 35-149 F [facility] Comment on above: TRIG ATP III CLASSIF ICATION TRIG less than 150 mg/dL Normal TRIG 150-199 mg/dL Borderline high TRIG 200-500 mg/dL High TRIG greater than 500 mg/dL Very high Standard traceable to the Center for Disease Conrtrol and Prevention (CDC) test method. Urine bacteria detection by automated methodOrdered By: Dung Todd on 03-22-2022 Bacteria Auto Ql (U) None seen None Seen [facility] Urine clarity by refractomet ry automatedOrdered By: Dung Todd on 03-22-2022 Clarity Refractometry automated (U) Clear Clear [facility] Urine cocaine detectionOrder ed By: Dung Todd on 03-22-2022 Cocaine Ql (U) Negative Negative [facility] Urine glucose measurement by automated test strip (mass/volume)Ordered By: Dung Todd on 03-22-2022 Glucose Auto test strip (U) [Mass/Vol] 500 mg/dL Normal [facility] Urine hemoglobin detection b y automated test stripOrdered By: Dung Todd on 03-22-2022 Hemoglobin Auto test strip Ql (U) Negative Ne gative [facility] Urine leukocyte esterase det ection by automated test stripOrdered By: Dung Todd on 03-22-2022 Leukocyte esterase Auto test strip Ql (U) Negative Negative [facility] Urobilinogen Auto test strip (U) [Mass/Vol]Ordered By: Dung Todd on 03-22-2022 Urobilinogen (U) [Mass/Vol] Normal mg/dL Normal [facility] Vitamin D 25 Hydroxy Totalon 03-22-2022 Vitamin D 25 Hydroxy Total 14.0 ng/mL Low 30-100 [facility] Comment on above: Order Comment: > or = to 3 loose/watery stools in the last 24 HRS? Y Is patient on promotility agents or tube feeding? N Result Comment: EULALIO MIN D STATUS 25([place])VITAMIN D RANGE (ng/mL) Deficient <20 Insufficient 20 to <30 Sufficient 30 to 100 Reference: Umm MF,Katherine CORONA, [place]on SEGURA, et al. Evaluation,treatment, and prevention of vitamin D deficiency; an Endocrine Society clinical practice guideline. JCEM. 2010; 96(7):1911-30. PERFORMED BY: [place] [id number] PATHOLOGIST INTERNET ARCHITECT ANASTACIO CHAO M.D. Performed By: #### C DT #### [address] pH Auto test strip (U)Ordere d By: Dung Todd on 03-22-2022 pH (U) 6.5 [pH] 5.0-9.0 [facility] MR lumbar spine wo conon MR lumbar spine wo con [facility] [place] [address] [place] [address] MRI Report Signed Patient: Harry Vargas MR#: [id number] : 1995 Acct:[id number] Age/Sex: 26 / M ADM Date: 11/12/21 Loc: [facility] Room: Type: [facility] Attending Dr: Micah Frost DO Ordering Provider: Micah Frost DO Date of Service: 11/12/21 MR/MR lumbar spine wo con: M99.53 Copies to: Micah Frost DO Examination: MR lumbar spine without IV contrast. Reason for exam: Low back pain that radiates to left leg with numbness. COMPARISON: Lumbar spine series 10/26/2021. TECHNIQUE: Multisequence, multiplanar images of the lumbar spine were obtained without the use of IV contrast. FINDINGS: No acute bony process is seen. Vertebral body heights appear well-maintained. Disc desiccation L4-L5 level. Cord terminates in normal position at the L1 vertebral body level. No abnormal cord signal is seen. No paraspinal mass. Visualized retroperitoneum demonstrates no acute findings. L1-L2: No posterior disc pathology. No canal or foraminal stenosis. L2-L3:No posterior disc pathology. No canal or foraminal stenosis. L3-L4:No posterior disc pathology. No canal or foraminal stenosis. L4-L5: Diffuse broad-based disc bulge, eccentric towards the left with associated mild canal stenosis. Moderate left-sided neural foraminal stenosis. L5-S1:No posterior disc pathology. No canal or foraminal stenosis. MR/MR lumbar spine wo con Impression: At L4-L5, diffuse broad-based disc bulge is present eccentric toward the left associated mild canal and moderate left-sided neural foraminal stenosis. Impression dictated by: Michi Alicea Jr., D.O.11/12/2021 2:39 PM Dictation Location: [place] [address] Transcribed By: [facility] 11/12/21 1439 Dictated By: Michi Alicea Jr, DO 11/12/21 1434 Signed By: 11/12/21 1439 [facility] Coding Summary.on 10-31-2021 Coding Summary. CD:[id number] [file] cHNl (more content not included)... Normal Fish er [facility] Basic Metabolic Panelon - Calcium [Mass/Vol] 9.8 mg/dL Normal 8.2-10.2 [facility] Comment on above: Performed By: #### C BC, HEPATIC, BMP, LIPASE #### [facility] [address] [place] [address] [place] Chloride [Moles/Vol] 99 mmol/L Normal 95-114 [facility] Comment on above: Performed By: #### C BC, HEPATIC, BMP, LIPASE #### [facility] [address] CO2 [Moles/Vol] 20.2 mmol/L Low 22.0-30.0 [facility] Comment on above: Performed By: #### C BC, HEPATIC, BMP, LIPASE #### [facility] [address] [place] [id number] [place] Creatinine [Mass/Vol] 0.87 mg/dL Normal 0.64-1.27 [facility] Comment on above: Performed By: #### C BC, HEPATIC, BMP, LIPASE #### [facility] [address] [place] [address] [place] Creatinine Clr Calc Pharmacy 126.89 Normal [facility] Comment on above: Performed By: #### C BC, HEPATIC, BMP, LIPASE #### [facility] [address] [place] [address] [place] Estimated GFR ( Tamara > 60 Normal [facility] Comment on above: Result Comment: GFR estimated reference range: According to KDOQI guidelines, <60 ml/min/1.73m2 is sufficient to diagnose a patient with chronic kidney disease. Performed By: #### C BC, HEPATIC, BMP, LIPASE #### [facility] [address] Estimated GFR (Non- Am > 60 [facility] Comment on above: Performed By: #### C BC, HEPATIC, BMP, LIPASE #### [facility] [address] Glucose [Mass/Vol] 99 mg/dL Normal 70-100 [facility] Comment on above: Result Comment: [place] Glucose Reference Range is dependent on time and content of last meal. Glucose of more than 200 mg/dL in a nonstressed, ambulatory subject supports the diagnosis of Diabetes Mellitus. ADA recommended reference range Performed By: #### C BC, HEPATIC, BMP, LIPASE #### [facility] [address] Potassium [Moles/Vol] 3.7 mmol/L Normal 3.5-5.1 [facility] Comment on above: Performed By: #### C BC, HEPATIC, BMP, LIPASE #### [address] Sodium [Moles/Vol] 131 mmol/L Low 136-146 [facility] Comment on above: Performed By: #### C BC, HEPATIC, BMP, LIPASE #### [facility] [address] Urea nitrogen [Mass/Vol] 13 mg/dL Normal 9-23 [facility] Comment on above: Performed By: #### C BC, HEPATIC, BMP, LIPASE #### [facility] [address] BioFire Not Detectedon 10-28 BioFire Not Detected Not detected Normal Not Detecte [facility] Comment on above: Result Comment: This is a duplicate RP2.1 COVID (PCR) result to be used for statistical tracking purpose only. PERFORMED BY: [facility] [address] [place] [address] PATHOLOGIST INTERNET ARCHITECT ANASTACIO CHAO M.D. Performed By: #### R SHAQ PANEL UPP., BIOFIRECOVNOTDE #### [facility] [address] COVID-19 Antigenon 2 COVID-19 Antigen Healthcare Worker?: N Sonia Reference Sonia Reference Negative SARS-CoV+SARS-CoV-2 (COVID-19) Ag [Presence] in Respiratory specimen by Rapid immunoassay Negative for SARS Antigen by CHERIE COVID19 Blank Space Sonia Disclaimer Negative results, from patients with symptom Sonia Disclaimer onset beyond five days, should be treated as Sonia Disclaimer presumptive and confirmation with a molecular Sonia Disclaimer assay, if necessary, for patient management, Sonia Disclaimer may be performed. Negative results do not rule Sonia Disclaimer out COVID-19 and should not be used as the sole Sonia Disclaimer basis for treatment or patient management Sonia Disclaimer decisions, including infection control decisions. Sonia Disclaimer Negative results should be considered in the Sonia Disclaimer context of a patient's recent exposures, history Sonia Disclaimer and the presence of clinical signs and symptoms Sonia Disclaimer consistent with COVID-19. COVID19 Blank Space Sonia Disclaimer The Sonia SARS Antigen CHERIE does not differentiate Sonia Disclaimer between SARS-CoV and SARS-CoV-2. COVID19 Blank Space Sonia Disclaimer This test was developed and its performance Sonia Disclaimer characteristic determined by [employer] and Sonia Disclaimer validated at [facility]. This Sonia Disclaimer test has not been FDA cleared or approved. This Sonia Disclaimer test has been authorized by FDA under an Emergency Use Sonia Disclaimer Authorization (EUA). This test has been validated Sonia Disclaimer in accordance with the FDA's Guidance Document (Policy Sonia Disclaimer for Diagnostics Testing in Laboratories Certified to Sonia Disclaimer Perform High Complexity Testing under CLIA prior to Sonia Disclaimer Emergency Use Authorization for Coronavirus Sonia Disclaimer iseas during the Public Health Emergency) Sonia Disclaimer issued on November 04, 2019. This test is only authorized Sonia Disclaimer for the duration of time the declaration that Sonia Disclaimer circumstances exist justifying the authorization of Sonia Disclaimer the emergency use of in vitro diagnostic tests for Sonia Disclaimer detection of SARS-CoV-2 virus and/or diagnosis of Sonia Disclaimer COVID-19 infection under section 564(b)(1) of the [place] Disclaimer Act, 21 U.S.C. 360bbb-3(b)(1), unless the Sonia Disclaimer authorization is terminated or revoked sooner. PERFORMED BY: [place] [address] PATHOLOGIST INTERNET ARCHITECT ANASTACIO CHAO M.D. [facility] Comment on above: Performed By: #### S JOSELIN, COVID-19 SONIA #### [address] COVID-19 Detected/Not Detect edOrdered By: Steve Ro on 10-28-2021 SARS-CoV-2 (COVID-19) RNA MAKI+non-probe Ql (Nph) Not detected Not Detecte [facility] Comment on above: This is a duplicate RP2.1 COVID (PCR) result to be used for statistical tracking purpose only. COVID-19 SOFIAOrdered By: Gen Ro on 10-28-2021 SARS-CoV+SARS-CoV-2 (COVID-1 9) Ag IA.rapid Ql (Resp) Negative Negative [facility] Comment on above: This is a duplicate Sonia SARS Antigen (CHERIE) result to be used for statistical tracking purpose only. CT abdomen pelvis w conon CT abdomen pelvis w [facility] [address] [place] [address] CT Scan Report Signed Patient: Harry Vargas MR#: [id number] : 1995 Acct:[id number] Age/Sex: 26 / M ADM Date: 10/27/21 Loc: ER Room: Type: [facility] ER Attending Dr: Ordering Provider: Steve Ro DO Date of Service: 10/27/21 CT/CT abdomen pelvis w con: lower abd pain, diarrhea, nausea, back pain Copies to: Steve Ro DO CT abdomen and pelvis withcontrast TECHNIQUE: Axial imaging with 2-D reconstruction.97 cc of Isovue-300. The CT exam was performed using one or more the following dose reduction techniques: Automated exposure control, adjustment of the MA and/or Kv according to patient size, or use of the iterative reconstruction technique. COMPARISON:None History: Abdominal pain for 4 hours. History of pancreatitis. Attention spine Lung bases are unremarkable. No hepatic mass or intrahepatic biliary ductal dilatation identified. Hepatic steatosis identified. No gallbladder abnormality identified. No extrahepatic biliary ductal dilatation identified. There is no splenomegaly or splenic mass identified. No pancreatic mass or ductal dilatation identified. The adrenal glands are unremarkable. No nephrolithiasis or obstructive uropathy is identified. No abdominal aortic aneurysm identified. No significant retroperitoneal abnormalities identified. The small bowel loops are nondistended. There is mild wall thickening of the distal bowel loops and terminal ileum. Terminal ileum demonstrates mucosal enhancement. The appendix is normal. There is no colonic wall thickening, distention or pericolonic inflammatory changes. Urinary bladder is unremarkable. Reproductive structures are unremarkable. No free intraperitoneal air or fluid is identified. No acute fractures. Moderate severe bilateral neural foraminal narrowing at the L4-5 level possible LEFT foraminal disc protrusion. No subcutaneous soft tissue abnormality identified. CT/CT abdomen pelvis w con IMPRESSION: Distal enteritis. May consider inflammatory bowel disease. Possible LEFT L4-5 foraminal disc protrusion with severe stenosis. Correlate with L4 radicular symptoms. Nonemergent MRI may be useful. Impression dictated by: Thom Zepeda M.D.10/28/2021 8:41 AM Dictation Location: [place] [address] Transcribed By: [facility] 10/28/2141 Dictated By: Thom Zepeda DO 10/28/2136 Signed By: 10/28/21840 Normal [facility] Clostridioides difficile tox in B tcdB gene [Presence] in Stool by MAKI with probe deteOrdered By: Steve Ro on 10-28-2021 C. difficile toxin B tcdB ge ne MAKI+probe Ql (Stl) Negative Negative [facility] Comment on above: Testing performed by RT-PCR Clostridium Difficileon 10-03 Clostridium Difficile Negative Normal Negative [facility] Comment on above: Order Comment: > or = to 3 loose/watery stools in the last 24 HRS? Y Is patient on promotility agents or tube feeding? N Result Comment: Test ing performed by RT-PCR PERFORMED BY: [place] [address] PATHOLOGIST INTERNET ARCHITECT ANASTACIO CHAO M.D. Performed By: #### C DT #### [facility] [address] [place] [address] Complete Blood Count Auto Di ffon 10-28-2021 Basophils (Bld) [#/Vol] 0.1 10*3/uL Normal 0.0-0.2 [facility] Comment on above: Result Comment: PERF ORMED BY: [place] [address] PATHOLOGIST INTERNET ARCHITECT ANASTACIO CHAO M.D. Performed By: #### C BC, HEPATIC, BMP, LIPASE #### [facility] [address] [place] [address] Basophils/100 WBC (Bld) 0.3 % Normal . F [facility] Comment on above: Performed By: #### C BC, HEPATIC, BMP, LIPASE #### [address] Eosinophils (Bld) [#/Vol] 0.1 10*3/uL Normal 0.0-0.45 [facility] Comment on above: Performed By: #### C BC, HEPATIC, BMP, LIPASE #### [address] Eosinophils/100 WBC (Bld) 0.5 % Normal . [facility] Comment on above: Performed By: #### C BC, HEPATIC, BMP, LIPASE #### [address] Erythrocyte distribution wid th (RBC) [Ratio] 12.3 % Normal 12.0-14.8 [facility] Comment on above: Performed By: #### C BC, HEPATIC, BMP, LIPASE #### [address] Hematocrit (Bld) [Volume fraction] 51.5 % High 38.8-50.0 [facility] Comment on above: Performed By: #### C BC, HEPATIC, BMP, LIPASE #### [address] Hemoglobin (Bld) [Mass/Vol] 17.7 g/dL High 13.0-17. 0 [facility] Comment on above: Performed By: #### C BC, HEPATIC, BMP, LIPASE #### [address] Lymphocytes (Bld) [#/Vol] 1.5 10*3/uL Normal 1.00-4.8 [facility] Comment on above: Performed By: #### C BC, HEPATIC, BMP, LIPASE #### [address] Lymphocytes/100 WBC (Bld) 8.2 % Normal . [facility] Comment on above: Performed By: #### C BC, HEPATIC, BMP, LIPASE #### [address] MCH (RBC) [Entitic mass] 30.1 pg Normal 27.5-35.2 [facility] Comment on above: Performed By: #### C BC, HEPATIC, BMP, LIPASE #### [facility] [address] MCV (RBC) [Entitic vol] 87.7 fL Normal 83.5-101 F [facility] Comment on above: Performed By: #### C BC, HEPATIC, BMP, LIPASE #### [facility] [address] Mean Corpuscular HGB Conc 34.3 g/dL Normal 32.5-35.6 [facility] Comment on above: Performed By: #### C BC, HEPATIC, BMP, LIPASE #### [address] Monocytes (Bld) [#/Vol] 1.4 10*3/uL High 0.0-0.8 [facility] Comment on above: Performed By: #### C BC, HEPATIC, BMP, LIPASE #### [address] Monocytes/100 WBC (Bld) 7.5 % Normal . F [facility] Comment on above: Performed By: #### C BC, HEPATIC, BMP, LIPASE #### [address] Neutrophils (Bld) [#/Vol] 15.5 10*3/uL High 1.8-7.7 [facility] Comment on above: Performed By: #### C BC, HEPATIC, BMP, LIPASE #### [place] [address] [place] Neutrophils/100 WBC (Bld) 83.5 % Normal . [facility] Comment on above: Performed By: #### C BC, HEPATIC, BMP, LIPASE #### [address] Nucleated RBC/100 WBC (Bld) [Ratio] 0.1 % Normal 0-0.5 [facility] Comment on above: Performed By: #### C BC, HEPATIC, BMP, LIPASE #### [facility] [address] Platelet mean volume (Bld) [Entitic vol] 8.0 fL Normal 6.6-10.1 [facility] Comment on above: Performed By: #### C BC, HEPATIC, BMP, LIPASE #### [facility] [address] Platelets (Bld) [#/Vol] 298 10*3/uL Normal 150-450 [facility] Comment on above: Performed By: #### C BC, HEPATIC, BMP, LIPASE #### [facility] [address] RBC (Bld) [#/Vol] 5.87 10*6/uL High 3.90-5.60 [facility] Comment on above: Performed By: #### C BC, HEPATIC, BMP, LIPASE #### [address] WBC (Bld) [#/Vol] 18.5 10*3/uL High 4.5-11.0 [facility] Comment on above: Performed By: #### C BC, HEPATIC, BMP, LIPASE #### [address] Dipstick and Microscopicon 0 10-28-2021 Appearance (U) Clear Normal Clear [facility] Comment on above: Order Comment: > or = to 3 loose/watery stools in the last 24 HRS? Y Is patient on promotility agents or tube feeding? N Performed By: #### C DT #### [address] Bacteria,Urine None Seen Normal None Seen [facility] Comment on above: Order Comment: > or = to 3 loose/watery stools in the last 24 HRS? Y Is patient on promotility agents or tube feeding? N Performed By: #### C DT #### [address] Bilirubin,Urine Negative Normal Negative [facility] Comment on above: Order Comment: > or = to 3 loose/watery stools in the last 24 HRS? Y Is patient on promotility agents or tube feeding? N Performed By: #### C DT #### [facility] [address] Color (U) Yellow Normal Yellow [facility] Comment on above: Order Comment: > or = to 3 loose/watery stools in the last 24 HRS? Y Is patient on promotility agents or tube feeding? N Performed By: #### C DT #### [facility] [address] Glucose Ql (U) Normal Normal Normal [facility] Comment on above: Order Comment: > or = to 3 loose/watery stools in the last 24 HRS? Y Is patient on promotility agents or tube feeding? N Performed By: #### C DT #### [address] Hyaline Casts,Urine None Seen Normal 0-8 [facility] Comment on above: Order Comment: > or = to 3 loose/watery stools in the last 24 HRS? Y Is patient on promotility agents or tube feeding? N Result Comment: PERF ORMED BY: [place] [id number] PATHOLOGIST INTERNET ARCHITECT ANASTACIO CHAO M.D. Performed By: #### C DT #### [address] Ketones Ql (U) Trace High Negative [facility] Comment on above: Order Comment: > or = to 3 loose/watery stools in the last 24 HRS? Y Is patient on promotility agents or tube feeding? N Performed By: #### C DT #### [facility] [address] Leukocyte esterase Test stri p Ql (U) Negative Normal Negative [facility] Comment on above: Order Comment: > or = to 3 loose/watery stools in the last 24 HRS? Y Is patient on promotility agents or tube feeding? N Performed By: #### C DT #### [facility] [address] Nitrite,Urine Negative Normal Negative [facility] Comment on above: Order Comment: > or = to 3 loose/watery stools in the last 24 HRS? Y Is patient on promotility agents or tube feeding? N Performed By: #### C DT #### [address] Occult Blood,Urine Trace High Negative [facility] Comment on above: Order Comment: > or = to 3 loose/watery stools in the last 24 HRS? Y Is patient on promotility agents or tube feeding? N Result Comment: PERF ORMED BY: [place] [id number] PATHOLOGIST INTERNET ARCHITECT ANASTACIO CHAO M.D. Performed By: #### C DT #### [address] pH (U) 5.0 [pH] Normal 5.0-9.0 [facility] Comment on above: Order Comment: > or = to 3 loose/watery stools in the last 24 HRS? Y Is patient on promotility agents or tube feeding? N Performed By: #### C DT #### [address] Protein,Urine Negative Normal Negative [facility] Comment on above: Order Comment: > or = to 3 loose/watery stools in the last 24 HRS? Y Is patient on promotility agents or tube feeding? N Performed By: #### C DT #### [address] RBC LM.HPF (Urine sed) [#/Area] 0 /[HPF] Normal 0-4 [facility] Comment on above: Order Comment: > or = to 3 loose/watery stools in the last 24 HRS? Y Is patient on promotility agents or tube feeding? N Performed By: #### C DT #### [address] Specificy [place],Urine 1.019 Normal 1.001-1.030 [facility] Comment on above: Order Comment: > or = to 3 loose/watery stools in the last 24 HRS? Y Is patient on promotility agents or tube feeding? N Performed By: #### C DT #### [address] Squamous Epithelial Cell,Urine None Seen Normal 0-2 [facility] Comment on above: Order Comment: > or = to 3 loose/watery stools in the last 24 HRS? Y Is patient on promotility agents or tube feeding? N Performed By: #### C DT #### [address] Urobilinogen,Urine Normal Normal Normal [facility] Comment on above: Order Comment: > or = to 3 loose/watery stools in the last 24 HRS? Y Is patient on promotility agents or tube feeding? N Performed By: #### C DT #### [address] WBC,Urine None Seen Normal 0-4 [facility] Comment on above: Order Comment: > or = to 3 loose/watery stools in the last 24 HRS? Y Is patient on promotility agents or tube feeding? N Performed By: #### C DT #### [address] Hepatic Panelon 10-28-2021 Albumin [Mass/Vol] 4.6 g/dL Normal 3.2-5.5 [facility] Comment on above: Performed By: #### C BC, HEPATIC, BMP, LIPASE #### [address] Albumin/Globulin [Mass ratio] 1.4 {ratio} Normal [facility] Comment on above: Performed By: #### C BC, HEPATIC, BMP, LIPASE #### [address] ALP [Catalytic activity/Vol] 33 U/L Normal 32-92 [facility] Comment on above: Performed By: #### C BC, HEPATIC, BMP, LIPASE #### [address] ALT [Catalytic activity/Vol] 45 U/L Normal 10-60 [facility] Comment on above: Performed By: #### C BC, HEPATIC, BMP, LIPASE #### [facility] [address] AST [Catalytic activity/Vol] 26 U/L Normal 10-42 [facility] Comment on above: Performed By: #### C BC, HEPATIC, BMP, LIPASE #### [facility] [address] Bilirubin [Mass/Vol] 1.2 mg/dL Normal 0.3-1.2 [facility] Comment on above: Performed By: #### C BC, HEPATIC, BMP, LIPASE #### [facility] [address] Bilirubin,Indirect 1.1 mg/dL Normal [facility] Comment on above: Performed By: #### C BC, HEPATIC, BMP, LIPASE #### [facility] [address] Bilirubin.indirect [Mass/Vol] 0.1 mg/dL Normal 0.0-0. 4 [facility] Comment on above: Performed By: #### C BC, HEPATIC, BMP, LIPASE #### [facility] [address] Globulin (S) [Mass/Vol] 3.2 g/dL Normal F [facility] Comment on above: Performed By: #### C BC, HEPATIC, BMP, LIPASE #### [facility] [address] Protein [Mass/Vol] 7.8 g/dL Normal 6.1-7.9 [facility] Comment on above: Performed By: #### C BC, HEPATIC, BMP, LIPASE #### [facility] [address] Lactic Acidon 10-28-2021 Lactate [Moles/Vol] 2.1 mmol/L Off scale high 0.5-2.2 F [facility] Comment on above: Result Comment: Resu lts called at 0031 on 10/28/21 PERFORMED BY: [place] [address] PATHOLOGIST INTERNET ARCHITECT ANASTACIO CHAO M.D. Performed By: #### C DT #### [address] Lipaseon 10-28-2021 Lipase [Catalytic activity/Vol] 56.0 U/L High 22-5 1 [facility] Comment on above: Result Comment: PERF ORMED BY: [place] [address] PATHOLOGIST INTERNET ARCHITECT ANASTACIO CHAO M.D. Performed By: #### C BC, HEPATIC, BMP, LIPASE #### [address] No Panel InformationOrdered By: Steve Ro on 10-28-2021 Respiratory Panel (PCR) F [facility] Respiratory (Upper) Panel, P CRon 10-28-2021 Respiratory (Upper) Panel, PCR Adenovirus Not detected Bordetella parapertussis Not detected Chlamydia pneumoniae Not detected Coronavirus 229E Not detected Coronavirus HKU1 Not detected Coronavirus NL63 Not detected Coronavirus OC43 Not detected Influenza A Not detected Influenza B Not detected Human Metapneumovirus Not detected Mycoplasma pneumoniae Not detected Parainfluenza Virus 1 Not detected Parainfluenza Virus 2 Not detected Parainfluenza Virus 3 Not detected Parainfluenza Virus 4 Not detected Bordetella pertussis-ptxP Not detected Human Rhino/Enterovirus Not detected Resp. Syncytial Virus Not detected COVID-19 Detected/Not Detected Not detected PERFORMED BY: [place] [address] PATHOLOGIST INTERNET ARCHITECT ANASTACIO CHAO M.D. [facility] Comment on above: Performed By: #### R SHAQ PANEL UPP., BIOFIRECOVNOTDE #### [address] Sonia Ag Negativeon 10-29-19 22 Sonia Ag Negative Negative Normal Negative [facility] Comment on above: Result Comment: This is a duplicate Sonia SARS Antigen (CHERIE) result to be used for statistical tracking purpose only. PERFORMED BY: [place] [address] PATHOLOGIST INTERNET ARCHITECT ANASTACIO CHAO M.D. Performed By: #### S DONITA OLIVERA #### [facility] [address] [place] [address] Stool Occult Blood (Guaiac)o n 10-28-2021 Stool Occult Blood (Guaiac) Occult Blood Positive for Occult Blood by Guaiac Methodology Reference range = Negative [place]: [place] [address] PATHOLOGIST INTERNET ARCHITECT ANASTACIO CHAO M.D. [facility] Comment on above: Performed By: #### C #### [address] Urine lactic acid measuremen tOrdered By: Steve Ro on 10-28-2021 Lactate (U) [Moles/Vol] 2.1 mmol/L [facility] Comment on above: Results calledat 003 1 on 10/28/21 Results called at 0031 on 10/28/21 XR Spine Lumbar Complete Inc luding Bendion 10-28-2021 XR Spine Lumbar Complete Including Bendi Exam Date/Time: 10/26/2021 14:32 EDT Reason for Exam: M62.830 Report IMPRESSION: NO ACUTE OSSEOUS ABNORMALITY. EXAMINATION: XR Spine Lumbar Complete Including Bendi TECHNIQUE: AP, lateral, bilateral oblique views of the lumbar spine and AP and lateral coned down views of the lumbosacral junction. Lateral flexion/extension views. HISTORY: Low back pain COMPARISONS: CT abdomen pelvis 02/08/2020. FINDINGS: There are 5 nonrib-bearing lumbar-type vertebral bodies. Lumbar spine alignment is within normal limits. Lumbar vertebral body heights and intervertebral disc spaces are preserved. No acute fracture. No spondylolysis or spondylolisthesis. Flexion/extension views demonstrate no abnormality. FINAL REPORT Dictated: 10/28/2021 3:40 pm Raudel Barajas DO Signed (Electronic Signature): 10/28/2021 3:40 pm Signed by: Raudel Barajas DO Transcribed by: GEORGI Technologist: Korina CORDOVA [facility] Automated erythrocytes count in urine sediment (number/area)Ordered By: Steve Ro on 10-27-2021 RBC Auto (Urine sed) [#/Area] 0-1 [HPF] [facility] Automated leukocytes count i n urine sediment (number/area)Ordered By: Steve Ro on 10-27-2021 WBC Auto (Urine sed) [#/Area] None seen [HPF] [facility] Basophils Auto (Bld) [#/Vol] Ordered By: Steve Ro on 10-27-2021 Basophils (Bld) [#/Vol] 0.1 10*3/uL 0.0-0.2 [facility] Basophils/100 WBC Auto (Bld) Ordered By: Steve oR on 10-27-2021 Basophils/100 WBC (Bld) 0.3 % F [facility] Bilirubin Test strip Ql (U)O rdered By: Steve Ro on 10-27-2021 Bilirubin Ql (U) Negative Negative [facility] Blood hemoglobin measurement (mass/volume)Ordered By: Steve Ro on 10-27-2021 Hemoglobin (Bld) [Mass/Vol] 17.7 g/dL 13.0-17. 0 [facility] Blood leukocytes automated c ount (number/volume)Ordered By: Steve Ro on 10-27-2021 WBC (Bld) [#/Vol] 18.5 10*3/uL 4.5-11.0 [facility] Body fluid albumin measureme nt (mass/volume)Ordered By: Steve Ro on 10-27-2021 Albumin (Body fld) [Mass/Vol] 4.6 g/dL 3.2-5. 5 [facility] Color Auto (U)Ordered By: Gen Ro on 10-27-2021 Color (U) Yellow Yellow [facility] Creatinine and Glomerular fi ltration rate.predicted panel (S/P/Bld)Ordered By: Steve Ro on 10-27-2021 Creatinine [Mass/Vol] 0.87 mg/dL 0.64-1.27 [facility] Direct bilirubin measurement Ordered By: Steve Ro on 10-27-2021 Bilirubin.direct [Mass/Vol] 0.1 mg/dL 0.0-0.4 [facility] Eosinophils Auto (Bld) [#/Vo l]Ordered By: Steve Ro on 10-27-2021 Eosinophils (Bld) [#/Vol] 0.1 10*3/uL 0.0-0.45 [facility] Eosinophils/100 WBC Auto (Bl d)Ordered By: Steve Ro on 10-27-2021 Eosinophils/100 WBC (Bld) 0.5 % [facility] Erythrocyte distribution wid th Auto (RBC) [Ratio]Ordered By: Steve Ro on 10-27-2021 Erythrocyte distribution wid th (RBC) [Ratio] 12.3 % 12.0-14.8 [facility] Estimated glomerular filtrat ion rate (GFR) non- AmericanOrdered By: Steve Ro on 10-27-2021 GFR/1.73 sq M.predicted leeanne g non-blacks MDRD (S/P/Bld) [Vol rate/Area] > 60 mL/Min [facility] Globulin Calc (S) [Mass/Vol] Ordered By: Steve Ro on 10-27-2021 Globulin (S) [Mass/Vol] 3.2 g/dL [facility] Hematocrit Auto (Bld) [Volum e fraction]Ordered By: Steve Ro on 10-27-2021 Hematocrit (Bld) [Volume fraction] 51.5 % 3 8.8-50.0 [facility] Ketones Auto test strip (U) [Mass/Vol]Ordered By: Steve Ro on 10-27-2021 Ketones (U) [Mass/Vol] Trace Negative [facility] and C hemistry - challengeOrdered By: Steve Ro on 10-27-2021 Lipase [Catalytic activity/Vol] 56.0 U/L 22-5 1 [facility] - Hematology and Cell countsOrdered By: Steve Ro on 10-27-2021 Nucleated RBC/100 WBC (Bld) [Ratio] 0.1 % 0-0.5 [facility] - UrinalysisOrder ed By: Steve Ro on 10-27-2021 Hyaline casts LM Ql (Urine sed) None seen [LPF] [facility] Lymphocytes Auto (Bld) [#/Vo l]Ordered By: Steve Ro on 10-27-2021 Lymphocytes (Bld) [#/Vol] 1.5 10*3/uL 1.00-4.8 [facility] Lymphocytes/100 WBC Auto (Bl d)Ordered By: Steve Ro on 10-27-2021 Lymphocytes/100 WBC (Bld) 8.2 % [facility] MCH Auto (RBC) [Entitic mass ]Ordered By: Steve Ro on 10-27-2021 MCH (RBC) [Entitic mass] 30.1 pg 27.5-35.2 [facility] MCHC Auto (RBC) [Mass/Vol]Or dered By: Steve Ro on 10-27-2021 MCHC (RBC) [Mass/Vol] 34.3 g/dL 32.5-35.[address] [facility] MCV Auto (RBC) [Entitic vol] Ordered By: Steve Ro on 10-27-2021 MCV (RBC) [Entitic vol] 87.7 fL 83.5-101 F [facility] Monocytes Auto (Bld) [#/Vol] Ordered By: Steve Ro on 10-27-2021 Monocytes (Bld) [#/Vol] 1.4 10*3/uL 0.0-0.8 [facility] Monocytes/100 WBC Auto (Bld) Ordered By: Steve Ro on 10-27-2021 Monocytes/100 WBC (Bld) 7.5 % [facility] Neutrophils Auto (Bld) [#/Vo l]Ordered By: Steve Ro on 10-27-2021 Neutrophils (Bld) [#/Vol] 15.5 10*3/uL 1.8-7.7 [facility] Neutrophils/100 WBC Auto (Bl d)Ordered By: Steve Ro on 10-27-2021 Neutrophils/100 WBC (Bld) 83.5 % [facility] Nitrite Test strip Ql (U)Ord ered By: Steve Ro on 10-27-2021 Nitrite Ql (U) Negative Negative [facility] No Panel InformationOrdered By: Steve Ro on 10-27-2021 Estimated GFR () > 60 mL/Min [facility] Comment on above: GFR estimated refere nce range: According to KDOQI guidelines, <60 ml/min/1.73m2 is sufficient to diagnose a patient with chronic kidney disease. Pharmacy Creatinine Clearance (Chem 126.89 [facility] Platelet mean volume Auto (B ld) [Entitic vol]Ordered By: Steve Ro on 10-27-2021 Platelet mean volume (Bld) [Entitic vol] 8.0 fL 6.6-10.1 [facility] Platelets Auto (Bld) [#/Vol] Ordered By: Steve Ro on 10-27-2021 Platelets (Bld) [#/Vol] 298 10*3/uL 150-450 [facility] Protein Auto test strip (U) [Mass/Vol]Ordered By: Steve Ro on 10-27-2021 Protein (U) [Mass/Vol] Negative Negative [facility] Protein [Mass/volume] in Ser um or PlasmaOrdered By: Steve Ro on 10-27-2021 Protein [Mass/Vol] 7.8 g/dL 6.1-7.9 [facility] RBC Auto (Bld) [#/Vol]Ordere d By: Steve Ro on 10-27-2021 RBC (Bld) [#/Vol] 5.87 10*6/uL 3.90-5.60 [facility] Serum or plasma alanine bhandari otransferase measurement without P-5'-P (enzymatic activiOrdered By: Steve Ro on 10-27-2021 ALT No additional P-5'-P [Ca talytic activity/Vol] 45 U/L 10-60 [facility] Serum or plasma albumin/glob ulin mass ratioOrdered By: Steve Ro on 10-27-2021 Albumin/Globulin [Mass ratio] 1.4 {ratio} [facility] Serum or plasma alkaline monico sphatase measurement (enzymatic activity/volume)Ordered By: Steve Ro on 10-27-2021 ALP [Catalytic activity/Vol] 33 U/L 32-92 [facility] Serum or plasma aspartate am inotransferase measurement (enzymatic activity/volume)Ordered By: Steve Ro on 10-27-2021 AST [Catalytic activity/Vol] 26 U/L 10-42 [facility] Serum or plasma calcium bobby urement (mass/volume)Ordered By: Steve Ro on 10-27-2021 Calcium [Mass/Vol] 9.8 mg/dL 8.2-10.2 [facility] Serum or plasma chloride fabian surement (moles/volume)Ordered By: Steve Ro on 10-27-2021 Chloride [Moles/Vol] 99 mmol/L 95-114 [facility] Serum or plasma glucose bobby urement (mass/volume)Ordered By: Steve Ro on 10-27-2021 Glucose [Mass/Vol] 99 mg/dL 70-100 [facility] Comment on above: ADA recommended refe rence rangeRandom Glucose Reference Range is dependent on time and content of last meal. Glucose of more than 200 mg/dL in a nonstressed, ambulatory subject supports the diagnosis of Diabetes Mellitus. ADA recommended refe rence range Random Glucose Reference Range is dependent on time and content of last meal. Glucose of more than 200 mg/dL in a nonstressed, ambulatory subject supports the diagnosis of Diabetes Mellitus. Serum or plasma non-glucuron idated bilirubin measurement (mass/volume)Ordered By: Steve Ro on 10-27-2021 Bilirubin.indirect [Mass/Vol] 1.1 mg/dL [facility] Serum or plasma potassium me asurement (moles/volume)Ordered By: Steve Ro on 10-27-2021 Potassium [Moles/Vol] 3.7 mmol/L 3.5-5.1 [facility] Serum or plasma sodium measu rement (moles/volume)Ordered By: Steve Ro on 10-27-2021 Sodium [Moles/Vol] 131 mmol/L 136-146 [facility] Serum or plasma total biliru bin measurement (mass/volume)Ordered By: Steve Ro on 10-27-2021 Bilirubin [Mass/Vol] 1.2 mg/dL 0.3-1.2 [facility] Serum or plasma total carbon dioxide measurement (moles/volume)Ordered By: Steve Ro on 10-27-2021 CO2 [Moles/Vol] 20.2 mmol/L 22.0-30.0 [facility] Serum or plasma urea nitroge n measurement (mass/volume)Ordered By: Steve Ro on 10-27-2021 Urea nitrogen [Mass/Vol] 13 mg/dL 04-26 [facility] Specific gravity Auto test s trip (U) [Rel density]Ordered By: Steve Ro on 10-27-2021 Specific gravity (U) [Rel density] 1.019 1.001-1.030 [facility] Squamous epithelial cells de tection in urine sediment by light microscopyOrdered By: Steve Ro on 10-27-2021 Epithelial cells.squamous LM Ql (Urine sed) None seen [HPF] [facility] Urine bacteria detection by automated methodOrdered By: Steve Ro on 10-27-2021 Bacteria Auto Ql (U) None seen None Seen [facility] Urine clarity by refractomet ry automatedOrdered By: Steve Ro on 10-27-2021 Clarity Refractometry automated (U) Clear Clear [facility] Urine glucose measurement by automated test strip (mass/volume)Ordered By: Steve Ro on 10-27-2021 Glucose Auto test strip (U) [Mass/Vol] Normal mg/dL Normal [facility] Urine hemoglobin detection b y automated test stripOrdered By: Steve Ro on 10-27-2021 Hemoglobin Auto test strip Ql (U) Trace Ne gative [facility] Urine leukocyte esterase det ection by automated test stripOrdered By: Steve Ro on 10-27-2021 Leukocyte esterase Auto test strip Ql (U) Negative Negative [facility] Urobilinogen Auto test strip (U) [Mass/Vol]Ordered By: Steve Ro on 10-27-2021 Urobilinogen (U) [Mass/Vol] Normal mg/dL Normal [facility] pH Auto test strip (U)Ordere d By: Steve Ro on 10-27-2021 pH (U) 5.0 [pH] 5.0-9.0 [facility] Consent for Treatmenton 10-03 Consent for Treatment [id number]:127 Normal [facility] Physician Orderon 10-26-2021 Physician Order [id number]#1.00CD:127 Normal [facility] XR hip LT min 2V(w/wo pelvis )*on 09-09-2021 XR hip LT min 2V(w/wo pelvis)* [place] [address] XRay Report Signed Patient: Harry Vargas MR#: [id number] : 1995 Acct:[id number] Age/Sex: 26 / M ADM Date: 09/09/21 Loc: ER Room: Type: [facility] ER Attending Dr: Ordering Provider: Sandra Galicia APRN Date of Service: 09/09/21 XR/XR hip LT min 2V(w/wo pelvis)*: Extremity Injury, Lower Copies to: Sandra Galicia APRN XR hip LT min 2V(w/wo pelvis)* 09/09/2021 6:53 PM SIGNS AND SYMPTOMS: Left hip pain laterally PROTOCOL: Frontal radiograph of the pelvis with frontal and frog-leg views of the left hip COMPARISON: None. FINDINGS: The joint spaces are preserved. There is no fracture or dislocation. The visualized bony ring of the pelvis is grossly intact. The sacroiliac joints are preserved. XR/XR hip LT min 2V(w/wo pelvis)* IMPRESSION: No acute bony injury or significant degenerative change. Impression dictated by: Javon aMckay M.D.09/09/2021 7:01 PM Dictation Location: [place] [address] Transcribed By: [facility] 09/09/211900 Dictated By: Javon Mackay II, MD 09/09/211899 Signed By: 09/09/211900 [facility] Respiratory specimen 2019 no bessy coronavirus RNA detection by probe and target amplifiOrdered By: Yasmany Parson on 08-03-2021 SARS-CoV-2 (COVID-19) RNA MAKI+probe Ql (Resp) Not detected Not Detected [facility] Comment on above: This nucleic acid am plification test was developed and itsperformance characteristics determined by [facility]. Nucleic acid amplification tests include RT-PCR and TMA. This test has not been FDA cleared orapproved. This test has been authorized by FDA under anEmergency Use Authorization (EUA). This test is onlyauthorized for the duration of time the declaration thatcircumstances exist justifying the authorization of theemergency use of in vitro diagnostic tests for detection bnEZED-EaH-1 virus and/or diagnosis of COVID-19 infectionunder section 564(b)(1) of the Act, 21 U.S.C. 360bbb-3(b)(1), unless the authorization is terminated or revokedsooner.When diagnostic testing is negative, the possibility of afalse negative result should be considered in the contextof a patient's recent exposures and the presence ofclinical signs and symptoms consistent with COVID-19. Anindividual without symptoms of COVID-19 and who is notshedding SARS-CoV-2 virus would expect to have a negative(not detected) result in this assay. Office Visit (Cardiology)on 06-01-2021 Follow-up visit Diagnoses/Problems Assessed Vertigo (780.4) (R42) Current smoker (305.1) (F17.200) 1/2-1 ppd Overweight with body mass index (BMI) of 29 to 29.9 in adult (278.02,V85.25) (E66.3,Z68.29) Orders Overweight with body mass index (BMI) of 29 to 29.9 in adult Healthy Weight Tips; Status:Complete; Done: 01Jun2021 SocHx: Current smoker Tobacco Use Screening; Status:Complete; Done: 01Jun2021 Vertigo IO EKG Electrocardiogram- 12 Lead; Status:Complete; Done: 01Jun2021 Patient Instructions Please bring all medicines, vitamins, and herbal supplements with you when you come to the office. Prescriptions will not be filled unless you are compliant with your follow up appointments or have a follow up appointment scheduled as per instruction of your physician. Refills should be requested at the time of your visit. Follow-up as needed only Chief Complaint HARRY VARGAS is being seen for an initial evaluation of ortho. History of Present Illness Mr. Vargas is a 26-year-old male who is seen today at the request of primary care because of what was described as orthostatic hypotension. He had orthostatic vitals done here and he does not demonstrate evidence for orthostatic hypotension presently. He indicates his symptoms have been improving recently he has not been syncopal. He has been seen by neurology and apparently was diagnosed with vertigo some of which may be related to migraines. This also seems to now be improving. Past medical history and review of systems as per office record. Physical exam: HEENT: No carotid bruits are heard Neck: No lymphadenopathy Lungs: Clear Heart: Regular rate and rhythm without murmurs or extra sounds Abdomen: Soft nontender Extremities: No edema Neurologic: Intact and nonfocal Skin: No significant lesions Impression and plan: 1) 26-year-old male who is seen for possible orthostatic hypotension. He is not orthostatic today. He has never been syncopal. I discussed with him the recommendation to maintain good hydration and relatively liberal salt intake at least for the time being. At this time I do not see any indication for further cardiac testing. He has no active cardiac symptoms and his EKG is normal. I suggested he continue to follow-up with neurology until his vertigo is completely resolved. He will return here on a as needed basis. 2) cigarette abuse is discussed. Risk for future vascular disease is discussed with recommendation to stop smoking. Surgical History Problems Denied: History of Complete colonoscopy Denied: History of Surgery Current Meds Medication NameInstruction No Reported Medications Allergies Medication No Known Drug Allergies Recorded By: Brandee Pardo; 06/01/2021 11:40:09 AM Family History Mother Family history of hyperlipidemia (V18.19) (Z83.438) Family history of Hypertension, benign Father Family history of Hypertension, benign Social History Problems Current smoker (305.1) (F17.200) 1/2-1 ppd Daily caffeine consumption pop/tea daily No alcohol use No illicit drug use Review of Systems Constitutional: not feeling tired. Cardiovascular: palpitations, but no intermittent leg claudication and as noted in HPI. Respiratory: shortness of breath, but no cough. Gastrointestinal: no change in bowel habits and no blood in stools. Integumentary: no skin rashes. Neurological: dizziness, but no seizures and no frequent falls. All other systems have been reviewed and are negative for complaint. Vitals Vital Signs Recorded: 01Jun2021 11:45AMRecorded: 01Jun2021 11:43AM Heart Rate87, Apical Rtvxvwmw897, LUE, Supine Ybslsklqf09, LUE, Supine Height5 ft 4.5 in Pvfrbb476 lb BMI Hegxfvnhyd49.41 kg/m2 BSA Calculated1.85 Tobacco Usea) Yes Patient encouraged to stop using tobacco productsYes Systolic Ydjfh643, LUE, Supine Diastolic Lying88, LUE, Supine Systolic Ulfsqxy169, LUE, Sitting Diastolic Fvltvpc76, LUE, Sitting Systolic Foxiprnq660, LUE, Standing Diastolic Ododjkkj123, LUE, Standing EKG done in office today. Signatures Electronically signed by : Dung Merchant DO; Jun 01 2021 12:07PM EST (Author) Normal [facility] Vital Signs Date Time Vital Sign Value Performing Clinician Facility 05-16-2023 11:15-0400 Body height 162.56 cm Dara Gant Other [facility] Other 05-16-2023 11:15-0400 Body mass index (BMI) [Ratio] 35.18 kg/m2 Dara Gant Other [facility] Other 05-16-2023 11:15-0400 Body temperature 98.3 [degF] Dara Gant Other [facility] Other 05-16-2023 11:15-0400 Body weight 92.99 kg Dara Gant Other [facility] Other 05-16-2023 11:15-0400 Respiratory rate 18 /min Dara Villarrealmond Other [facility] Other 05-16-2023 11:15-0400 SaO2% (BldA) [Mass fraction] 97 % Dara Gant Other [facility] Other 10-12-2022 09:10-0500 Body height 162.56 cm Lyly Benitezault Other [facility] Other 10-12-2022 09:10-0500 Body mass index (BMI) [Ratio] 34.22 kg/m2 Lyly Benitezault Other [facility] Other 10-12-2022 09:10-0500 Body temperature 99.2 [degF] Lyly Benitezault Other [facility] Other 10-12-2022 09:10-0500 Body weight 90.45 kg Lyly Benitezault Other [facility] Other 10-12-2022 09:10-0500 Diastolic blood pressure 101 mm[Hg] Lyly Benitezault Other [facility] Other 10-12-2022 09:10-0500 SaO2% (BldA) [Mass fraction] 97 % Lyly Benitezault Other [facility] Other 10-12-2022 09:10-0500 Systolic blood pressure 149 mm[Hg] Lyly Benitezault Other [facility] Other 06-03-2022 16:35-0400 Body height 162.56 cm Lyly Opal Other [facility] Other 06-03-2022 16:35-0400 Body mass index (BMI) [Ratio] 32.61 kg/m2 Lyly Joseph Other [facility] Other 06-03-2022 16:35-0400 Body temperature 97.6 [degF] Lyly Joseph Other [facility] Other 06-03-2022 16:35-0400 Body weight 86.18 kg Lyly Joseph Other [facility] Other 06-03-2022 16:35-0400 Respiratory rate 18 /min Lyly Joseph Other [facility] Other 06-03-2022 16:35-0400 SaO2% (BldA) [Mass fraction] 96 % Lyly Joseph Other [facility] Other 05-22-2022 12:10-0400 Body temperature 98.2 [degF] [employer] Work Phone: [facility] 05-22-2022 12:10-0400 Diastolic blood pressure 64 mm[Hg] [employer]ah [employer] Work Phone: [facility] 05-22-2022 12:10-0400 Heart rate 89 /min [employer] [employer] Work Phone: [facility] 05-22-2022 12:10-0400 Respiratory rate 16 /min [employer] [employer] Work Phone: [facility] 05-22-2022 12:10-0400 SaO2% (BldA) [Mass fraction] 97 % [employer] [employer] Work Phone: [facility] 05-22-2022 12:10-0400 Systolic blood pressure 124 mm[Hg] [employer] Work Phone: [facility] 03-25-2022 13:48-0400 Body height 163.83 cm DO [employer] Work Phone: [facility] 03-25-2022 09:00-0400 Body weight 84.4 kg DO Micah Link Work Phone: [facility] 03-25-2022 07:30-0400 Body temperature 97.5 [degF] DO Micah Link Work Phone: [facility] 03-25-2022 07:30-0400 Diastolic blood pressure 73 mm[Hg] DO Micah Link Work Phone: [facility] 03-25-2022 07:30-0400 Heart rate 72 /min DO Micah Link Work Phone: [facility] 03-25-2022 07:30-0400 Respiratory rate 16 /min DO Micah Link Work Phone: [facility] 03-25-2022 07:30-0400 SaO2% (BldA) [Mass fraction] 98 % DO Micah Link Work Phone: [facility] 03-25-2022 07:30-0400 Systolic blood pressure 114 mm[Hg] DO Micah Link Work Phone: [facility] 01-07-2022 03:26-0400 Diastolic blood pressure 74 mm[Hg] DO Micah Link Work Phone: [facility] 01-07-2022 03:26-0400 Heart rate 89 /min DO Micah Link Work Phone: [facility] 01-07-2022 03:26-0400 Respiratory rate 18 /min DO Micah Link Work Phone: [facility] 01-07-2022 03:26-0400 SaO2% (BldA) [Mass fraction] 98 % DO Micah Link Work Phone: [facility] 01-07-2022 03:26-0400 Systolic blood pressure 136 mm[Hg] DO Micah Link Work Phone: [facility] 01-07-2022 01:43-0400 Body height 162.56 cm DO Micah Link Work Phone: [facility] 01-07-2022 01:43-0400 Body mass index (BMI) [Ratio] 30.9 kg/m2 DO Micah Link Work Phone: [facility] 01-07-2022 01:43-0400 Body temperature 98.1 [degF] DO Micah Link Work Phone: [facility] 01-07-2022 01:43-0400 Body weight 81.64 kg DO Micah Link Work Phone: [facility] 10-28-2021 07:05-0400 Heart rate 96 /min DO Micah Link Work Phone: [facility] 10-28-2021 07:05-0400 Respiratory rate 20 /min DO Micah Link Work Phone: [facility] 10-28-2021 07:05-0400 SaO2% (BldA) [Mass fraction] 97 % DO Micah Link Work Phone: [facility] 10-28-2021 05:13-0400 Body height 162.56 cm DO Micah Link Work Phone: [facility] 10-28-2021 05:13-0400 Body mass index (BMI) [Ratio] 33.2 kg/m2 DO Micah Link Work Phone: [facility] 10-28-2021 05:13-0400 Body weight 87.7 kg DO Micah Link Work Phone: [facility] 10-28-2021 05:12-0400 Body temperature 99 [degF] DO Micah Link Work Phone: [facility] 10-28-2021 05:12-0400 Diastolic blood pressure 80 mm[Hg] DO Micah Link Work Phone: [facility] 10-28-2021 05:12-0400 Systolic blood pressure 142 mm[Hg] DO Micah Link Work Phone: [facility] 10-28-2021 02:33-0400 Diastolic blood pressure 66 mm[Hg] DO Micah Link Work Phone: [facility] 10-28-2021 02:33-0400 Heart rate 87 /min DO Micah Link Work Phone: [facility] 10-28-2021 02:33-0400 Respiratory rate 18 /min DO Micah Link Work Phone: [facility] 10-28-2021 02:33-0400 SaO2% (BldA) [Mass fraction] 96 % DO Micah Link Work Phone: [facility] 10-28-2021 02:33-0400 Systolic blood pressure 119 mm[Hg] DO Micah Link Work Phone: [facility] 10-27-2021 22:54-0400 Body height 162.56 cm DO Micah Link Work Phone: [facility] 10-27-2021 22:54-0400 Body mass index (BMI) [Ratio] 32.3 kg/m2 DO Micah Link Work Phone: [facility] 10-27-2021 22:54-0400 Body temperature 98.4 [degF] DO Micah Link Work Phone: [facility] 10-27-2021 22:54-0400 Body weight 85.5 kg DO Micah Link Work Phone: [facility] 09-09-2021 19:55-0500 Diastolic blood pressure 86 mm[Hg] DO Micah Link Work Phone: [facility] 09-09-2021 19:55-0500 Heart rate 89 /min DO Micah Link Work Phone: [facility] 09-09-2021 19:55-0500 Respiratory rate 20 /min DO Micah Link Work Phone: [facility] 09-09-2021 19:55-0500 SaO2% (BldA) [Mass fraction] 98 % DO Micah Link Work Phone: [facility] 09-09-2021 19:55-0500 Systolic blood pressure 138 mm[Hg] DO Micah Link Work Phone: [facility] 09-09-2021 18:25-0500 Body height 162.56 cm DO Micah Link Work Phone: [facility] 09-09-2021 18:25-0500 Body mass index (BMI) [Ratio] 32.3 kg/m2 DO Micah Link Work Phone: [facility] 09-09-2021 18:25-0500 Body temperature 98.5 [degF] DO Micah Link Work Phone: [facility] 09-09-2021 18:25-0500 Body weight 85.55 kg DO Micah Link Work Phone: [facility] Encounters Encounter Date Encounter Type Care Provider Facility Start: 05-16-2023 End: 05-16-2023 ambulatory Dara Alfreda Other [facility] Other Start: 05-16-2023 Office outpatient visit 15 minutes Dara Alfreda [facility] Start: 10-12-2022 End: 10-12-2022 ambulatory Lyly Opal Other [facility] Other Start: 10-12-2022 Office outpatient visit 15 minutes Lyly Opal [facility] Start: 06-03-2022 End: 06-03-2022 ambulatory Lyly Opal Other [facility] Other Start: 06-03-2022 Office outpatient visit 25 minutes Lyly Opal [facility] Start: 05-22-2022 Emergency department patient visit [facility] Start: 05-22-2022 End: 05-22-2022 Emergency department patient visit Micah Link Work Phone: [facility] ED Comment on above: Acute exacerbation o f chronic low back pain (Primary Dx); Benign paroxysmal positional vertigo, unspecified laterality Start: 04-25-2022 ambulatory KATHERIN JAVIER [facility] Start: 03-22-2022 End: 03-25-2022 Evaluation and management of inpatient Micah C Link Facility:[facility] Start: 03-22-2022 End: 03-25-2022 Evaluation and management of inpatient DO Micah Link Work Phone: [facility] Start: 02-07-2022 End: 02-07-2022 ambulatory Kapil Robledo Other [facility] Other Start: 02-07-2022 Telephone encounter Kapil Robledo [facility] Infection Control Preventionist Start: 01-07-2022 End: 01-07-2022 Emergency department patient visit Micah C Link Facility:[facility] Start: 01-07-2022 End: 01-07-2022 Emergency department patient visit DO Micah Link Work Phone: [facility]-Emergency Room Start: 11-12-2021 End: 11-12-2021 ambulatory Micah C Link Facility:[facility] Start: 11-12-2021 End: 11-12-2021 Patient encounter procedure DO Micah Link Work Phone: [facility]MRI [address] Start: 10-28-2021 End: 10-28-2021 Emergency department patient visit Steve Ro Facility:[facility] Start: 10-28-2021 End: 10-28-2021 Emergency department patient visit DO Micah Link Work Phone: [facility]Emergency Room Start: 10-28-2021 End: 10-28-2021 Emergency department patient visit Steve Ro Facility:[facility] Start: 10-27-2021 End: 10-28-2021 Emergency department patient visit DO Micah Link Work Phone: [facility]Emergency Room Start: 10-26-2021 End: 10-26-2021 Patient encounter procedure Micah Frost [facility] Start: 09-18-2021 End: 09-18-2021 ambulatory Jennifer Marrero Facility:[facility] Start: 09-18-2021 Registered Recurring DO Micah wright Work Phone: [facility]-Physical Therapy [address] Start: 09-09-2021 End: 09-09-2021 Emergency department patient visit Sandra Wiilam Grayson Facility:[facility] Start: 09-09-2021 End: 09-09-2021 Emergency department patient visit DO Micah Frost Work Phone: [facility]-Emergency Room Start: 08-03-2021 End: 08-03-2021 Patient encounter procedure DO Micah Link Work Phone: [facility] ER COVID SWAB Procedures Date Procedure Procedure Detail Performing Clinician Start: 11-12-2021 MR lumbar spine wo con DO Micah Link Work Phone: Start: 10-28-2021 Respiratory Panel (PCR) DO Micah Link Work Phone: Start: 10-28-2021 End: 10-28-2021 Screening for occult blood in feces DO Micah Link Work Phone: Start: 10-27-2021 Computed tomography of abdomen and pelvis with contrast DO Micah Link Work Phone: Start: 09-09-2021 Plain X-ray of left hip DO Micah Link Work Phone: SARS Antigen (LFIA) DO Micah Link Work Phone: Plan of Treatment Date Care Activity Detail Author Start: 03-25-2022 [facility] Work Phone: Start: 03-22-2022 Hospital admission [facility] Work Phone: Start: 03-04-2022 Influenza vaccination Flu vaccine (#1) [facility] Start: 10-27-2021 Computed tomography of abdomen and pelvis with contrast CT abdomen pelvis w con [facility] Start: 02-20-2021 COVID-19 Vaccine (2 - Booster for Oscar series) COVID-19 Vaccine (2 - Booster for Oscar series) [facility] Start: 2013 Hepatitis C screening Hepatitis C screen [facility] Start: 2010 HIV screening HIV screen [facility] Start: 2007 Depression Screen Depression Screen [facility] Start: 2006 DTaP/Tdap/Td vaccine (6 - Tdap) DTaP/Tdap/Td vaccine (6 - Tdap) [facility] Start: 2001 Pneumococcal 0-64 years Vaccine (1 - PCV) Pneumococcal 0-64 years Vaccine (1 - PCV) [facility] Start: 01-28-1996 Varicella vaccine (1 of 2 - 2-dose childhood series) Varicella vaccine (1 of 2 - 2-dose childhood series) [facility] Bacterial cytolethal distending toxin cdt gene [Presence] in Unspecified specimen by MAKI with probe detection [facility] Work Phone: Patient Education [facility] Work Phone: Patient referral [facility] Work Phone: Payers Date Payer Category Payer Unknown [id number] 2021 Self-pay [id number] 2021 Unknown [id number] 1938 Unknown [id number] 2.16.8 [id number] Medicaid [id number] 2. [id number] Unknown [id number] 2.16.8 [id number] Unknown [id number] 2.16.8 [id number] Unknown [id number] 2.16.8 [id number] Unknown [id number] 2.16.8 [id number] Unknown [id number] 2.16.8 [id number] Unknown [id number] 2.16.8 [id number] Unknown [id number] 2.16.8 [id number] Unknown [id number] 2. [id number] Social History Date Type Detail Facility Tobacco Cigarettes, 10 p er day. Started age 15.0 Years. Ready to change: Yes. Household tobacco concerns: No. [facility] Comment on above: denies Sex Assigned At Male [facility] Start: 10-28-2021 End: 03-23-2022 Tobacco smoking status IDIS Smoker (finding) [facility] Start: 1995 Sex Assigned At Male [facility] Start: 01-07-2022 Tobacco smoking status IDIS Never smoked tobacco (finding) [facility] Start: 08-04-2009 Tobacco [facility] tobacco daily [facility] Phone: Start: 08-04-2009 History of tobacco use Cigarette Smoker [facility] Phone: Start: 03-13-2022 Cigarettes smoked current (pack per day) - Reported 0.5 [facility] Phone: Start: 03-13-2022 Tobacco use and exposure Smokeless tobacco non-user [facility] Phone: Start: 03-13-2022 Alcohol intake Ex-drinker (finding) [facility] Phone: Start: 01-25-2022 History SDOH Alcohol Comment February 07, 2022 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 [facility] Phone: Start: 1995 Sex Assigned At Not on file [facility] Phone: Start: 05-12-2022 End: 05-22-2022 Exposure to SARS-CoV-2 (event) Not sure Ale[facility] Functional Status Date Assessment Result Facility 03-25-2022 Functional status Patient at Baseline [facility] Work Phone: Mental Status Date Assessment Result Facility 03-25-2022 Cognitive function Cognitive Sta tus Patient at Baseline [facility] Work Phone: Clinical Notes 03-23-2022 to 05-16-2023 Note Date & Type Note Facility 05-16-2023 Evaluation note Encounter Date Diagnosis Assessment Notes May, Sore throat (ICD-10 - J02.9) May, Acute pharyngitis due to other specified organisms (ICD-10 - J02.8) Drink plenty fluids, get plenty of rest. Take the amoxicillin as prescribed until gone. Take Tylenol or Motrin as needed for aches pains or fevers. Consider drinking warm tea with honey for comfort. Off work today, may return to work on Friday. Follow-up with your family physician if no improvement in 2 to 3 days [facility] Other 03-11-2023 Evaluation note* Encounter Date Diagnosis Assessment Notes Treatment Notes Treatment Clinical Notes Oct, Impacted cerumen of both ears (ICD-10 - H61.23) Ear wax removal completed in office today. Recommend Debrox ear drops as directed in box to prevent future impaction as well as refraining from using Q-tips or other objects to clear out ears. Follow up with PCP or ENT if no improvement of symptoms or symptom return Oct, Elevated blood pressure reading (ICD-10 - R03.0) Elevated blood pressure reading with patient and recommend to check blood pressure and report to primary care provider. There are major complications of untreated high blood pressure so it is so important to follow up [facility] Other 10-31-2022 Evaluation note* Encounter Date Diagnosis Assessment Notes Treatment Notes Treatment Clinical Notes May, Contact with and (suspected) exposure to other viral communicable diseases (ICD-10 - Z20.828) May, Laryngitis (ICD-10 - J04.0) Symptoms of laryngitis is caused by viruses. Salt water gargles may help with discomfort. Take medications as directed. Cool mist humidifier, steaming up bathroom with shower may help with symptom relief. Follow up with primary care provider if no improvement of symptoms [facility] Other 10-19-2022 Hospital Discharge instructions* Discharge Instructions* Horacio Victor PA-C - 05/22/2022 3:21 PM EDT Follow-up with primary care doctor 5 to 7 days for reevaluation. Take Flexeril which is a muscle relaxer as directed. Continue to take Aleve as directed start Medrol Dosepak which is a steroid to help with your referred pain to your leg as directed. Promptly return to emergency department for new, changing, worsening of symptoms or other concerns. * Attachments The following attachments cannot be sent through Care Everywhere. * Back Pain (Malawian) * Vertigo (Malawian) [facility] Work Phone: 1(408) 776-396608-22-2022 Discharge summary Author Denzel Fonseca [facility] March 25, 2022 1:03pm Note Date/Time March 25, 2022 1: 00pm [facility] [address] [place] [address] Discharge Summary Signed Patient: Harry Vargas MR#: [id number] 2142 : 1995 Acct:[id number] Age/Sex: 27 / M Adm Date: 2 Loc: Room: [address] [place] [address]: Saran Kaba MD Copies to: MD Micah Mitchell Link DO Denzel Fonseca MD~ Providers Date of Discharge: 03/25/22 Discharging Provider: Denzel Fonseca Primary Care Provider: Micah Frost Discharge Diagnosis (1) Depression: Final Diagnosis Final Discharge Diagnosis: Major depressive disorder Summary Hospital Course Hospital course: According to admission note: 27-year-old male with past medical history of anxiety, disc herniation presented to the emergency department with complaint ofhaving suicidal ideations.? Patient has been depressed over his life situation over the past month or so.? Patient is having some financial difficulties.? Mother is helping with this but he does not feel he deserves it.? Patient has never felt like this in his life.? No homicidal ideations.? Patient has started thinking of a plan to kill himself.? Patient was personally seen by me on the day of the encounter.? I reviewed the history and performed the billy elements of the assessment.? I formulated the planof care and confirmed this with the Resident as noted below Today, pt admits to having suicidal ideations increasing over the past 2 weeks. He had a plan to [place] [employer] [place]. He alerted hiscoworkers who called for him to come in immediately. He has recently had increased depression with decreased motivation, decreased sleep. He had been seeing his PCP Dr. Frost for anxiety up until about a year ago when his insurancechanged. He was taking effexor with good results prior to this but has not takenfor almost a year now. He has not been doing counseling recently either but has been to trauma counseling in the past which helped him. Of note, he has been sober from alcohol for 2 years. Does vape daily. He describes his depression as 6/10 today and anxiety 10/10. He does have an improved appetite and slept about 8 hours. He is requesting a nicotine patch at this time but otherwise has no complaints. Denies suicidal/homicidal ideations. Denies hallucinations. No paranoia, delusions. Past psych history: anxiety, depression Past hospitalizations: none Past suicide attempts: none Family psych history: dad - bipolar, mom's side - bipolar Previous medications: effexor Smoking Status: daily Tobacco Type: vape Substance Use Type: none Social History Comments: lives alone Patient was treated with Effexor which she was previously on in the past. He tolerated the medication without any problems and did not report any side effects. As his dose was increased his depression gradually improved. Did not report any further suicidal thoughts. He did not exhibit any behavior concerning for suicidality during his hospital course. He attended groups and socialized with peers appropriately. On the day of discharge, he reported he isfeeling better. He denied any depression or suicidality. He felt that his depression and anxiety were under better control. He felt comfortable dischargehome and stated that he would follow-up with outpatient services. He also expressed some future oriented thoughts and stated that he would be moving in with his mom and stepfather which he stated were supportive. Time spent discussing smoking cessation with patient: 3 to 10 minutes Condition Condition at Discharge: Stable Status at Discharge Cognitive/behavioral status at discharge: Mental Status Exam: Appearance: grossly normal Mental Status: mental status grossly normal Mood: Euthymic mood Affect: Normal affect Speech and Movement: speech and movement normal and speech clear Attitude: cooperative Thought Process: normal Thought Content: Denied hallucinations, no homicidality and no suicidality Insight: Good Judgment: Good Functional status at discharge: independent ambulation Overall status at discharge: patient is back to baseline Time Spent with Patient Time spent providing/coordinating discharge services (# min): 30 Exam Physical Exam Vital Signs: Temp Pulse Resp BP Pulse Ox O2 Del Method 97.5 F L 72 16 114/73 98 Room Air 03/25/22 07:30 03/25/22 07:30 03/25/22 07:30 03/25/22 07:30 03/25/22 07:30 03/25/22 07:30 Discharge Plan Discharge Plan Patient Disposition: Home Activity: No Activity Restriction Diet: Regular Additional Instructions: Regular diet. No activity restrictions. Instructions: Depression, Adult (DC), [facility] [place] Instructions Prescriptions: New venlafaxine 75 mg Capsule,Extended Release 24hr 75 mg PO DAILY 30 Days Qty: 30 0RF trazodone 50 mg Tablet 50 mg PO QHS PRN (Reason: Insomnia) Qty: 20 0RF nicotine 21 mg/24 hr Patch 24 Hour 1 ea transdermal DAILY Qty: 30 0RF Follow Up: [facility] [Outside] [facility] [Outside] Documented By: Denzel Fonseca MD 03/25/22 1253 Signed By: <Electronically signed by Denzel Fonseca MD> 03/25/22 1300 [facility] Work Phone: 1(921) 741-876908-21-2022 Progress note Author Alcon cordero [facility] March 24, 2022 10:11am Note Date/Time March 24, 2022 10 :11am [facility] [address] [place], [place] [id number] Psychiatry Progress Note Signed Patient: Harry Vargas MR#: [id number] 2142 : 1995 Acct:[id number] Age/Sex: 27 / M Adm Date: 2 Loc: Room: [address] [place] [address] Type : ADM IN Attending Dr: Saran Kaba MD Copies to: ~ Date of Service: 03/24/2022 Subjective Subjective Narrative: Patient reports he is starting to feel better. He rated his depression at 5 out of 10 with 10 being the worst. We discussed importance of med compliance. Anxiety is moderate in intensity with attempted utilization of coping skills. Hedenies SI/HI and verbalized the intent to notify staff if he has such thoughts. He continues to be compliant with prescribed medications and is visible within the unit milieu. He alluded to psychosocial stressors being the primary issue that he is struggling with. We have agreed to continue the current medications regimen. Risks, benefits, andindications of medications were discussed. Appearance: dressed casually Mental Status: mental status grossly normal Mood: Euthymic mood Affect: Normal affect Speech and Movement: speech and movement normal and speech clear Attitude: cooperative Thought Process: normal Thought Content: Denied hallucinations, no homicidality and no suicidality Insight: fair Judgment: fair Impulse control: fair Exam Physical Exam Vital Signs: Temp Pulse Resp BP Pulse Ox O2 Del Method 97.3 F L 76 16 105/66 97 Room Air 03/24/22 07:30 03/24/22 07:30 03/23/22 20:00 03/24/22 07:30 03/24/22 07:30 03/24/22 07:30 Assessment/Plan Assessment/Plan (1) Depression: Code(s): F32.A - Depression, unspecified Status: Acute Plan Patient reports feeling much better on Effexor. Will continue with the 75 mg dose as its more effective than the 37.5. Risks, benefits and indications of medications were discussed with the patient. The patient verbalized understanding. Monitor suicidal behaviors for safety of self (15-minute face check). Recommend attending groups and psychoeducation for building coping skills. No abnormal movements noted on exam. AIMS is Zero. Anticipate discharge tomorrow or Friday Documented By: Alcon Kaba MD 2 1009 Signed By: <Electronically signed by Alcon Kaba MD> 03/24/22 1011 [facility] Work Phone: 1(491) 855-412308-20-2022 History and physical note Author Alcon cordero [facility] March 23, 2022 8:58am Note Date/Time March 23, 2022 7: 44am [facility] [address] [place] [address] Psychiatry H&P Signed Patient: Harry Vargas MR#: [id number] 2142 : 1995 Acct:[id number] Age/Sex: 27 / M Adm Date: 2 Loc: Room: [address] [place] [address] Type: ADM IN Attending Dr: Saran Kaba MD Copies to: MD Micah Mitchell Link DO Janessa Dietz DO, RES~ Date of Service: 03/23/2022 HPI Narrative Narrative: 27-year-old male with past medical history of anxiety, disc herniation presentedto the emergency department with complaint of having suicidal ideations.? Patient has been depressed over his life situation over the past month or so.? Patient is having some financial difficulties.? Mother is helping with this but he does not feel he deserves it.? Patient has never felt like this in his life.?No homicidal ideations.? Patient has started thinking of a plan to kill himself.? Patient was personally seen by me on the day of the encounter. I reviewed the history and performed the billy elements of the assessment. I formulated the planof care and confirmed this with the Resident as noted below Today, pt admits to having suicidal ideations increasing over the past 2 weeks. He had a plan to drive to the [employer] [place] and jump from it. He alerted hiscoworkers who called for him to come in immediately. He has recently had increased depression with decreased motivation, decreased sleep. He had been seeing his PCP Dr. Frost for anxiety up until about a year ago when his insurancechanged. He was taking effexor with good results prior to this but has not takenfor almost a year now. He has not been doing counseling recently either but has been to trauma counseling in the past which helped him. Of note, he has been sober from alcohol for 2 years. Does vape daily. He describes his depression as 6/10 today and anxiety 10/10. He does have an improved appetite and slept about 8 hours. He is requesting a nicotine patch at this time but otherwise has no complaints. Denies suicidal/homicidal ideations. Denies hallucinations. No paranoia, delusions. History of Present Illness History of present illness: Past psych history: anxiety, depression Past hospitalizations: none Past suicide attempts: none Family psych history: dad - bipolar, mom's side - bipolar Previous medications: effexor Smoking Status: daily Tobacco Type: vape Substance Use Type: none Social History Comments: lives alone Review of symptoms: Constitutional: Denies chills and Denies fever(s) Eyes: Denies change in vision ENT: admits to tinnitus, chronic Cardiovascular: Denies chest pain Respiratory: Denies chest congestion and Denies cough Gastrointestinal: Denies change in bowel habits Genitourinary: Denies dysuria Musculoskeletal: Denies myalgias Integumentary/Breasts: Denies dry skin Neurologic: Denies abnormal gait and Denies abnormal movements Psychiatric: admits depression, denies suicidal ideation Physical exam: Const: cooperative Nutritional Appearance: normal weight Orientation: alert, awake and oriented x3 HEENT: Head normal to inspection, hearing grossly normal bilaterally, external nose normal, face symmetric Eyes: appearance normal, both eyes and all related structures, sclerae normal Neck: normal visual inspection and full ROM Resp: normal respiratory effort, able to speak in complete sentences and symmetric chest movement Cardio: regular rate GI: normal to inspection and non-distended Skin: warm, dry Neuro: CNII: Visual gipson intact, CNIII,IV,: EOM intact, no nystagmus. Pupilsequal, round, reactive to light and accommodation, CNV: Sensation intact to light touch, CNVII: Raises eyebrows, smile/frown, puff out cheeks symmetrically,CNVIII: Hearing intact bilaterally, CNIX,X: Voice normal, soft palate elevation normal, symmetrical, CNXI: Shoulder shrug strong, equal bilaterally, CNXII: Tongue protrusion midline, movement symmetrical. Extrem: normal to inspection and full ROM, 5/5 strength bilaterally Mental Status Exam: Appearance: grossly normal Mental Status: mental status grossly normal Mood: normal mood Affect: flat affect Speech and Movement: speech and movement normal and speech clear Attitude: cooperative Thought Process: normal Thought Content: denied hallucinations, no homicidality, positive for suicidality Insight: fair Judgment: fair PMFSH Vaccinated for COVID-19?: Unknown Medical History (Updated 03/23/22 @ 07:33 by Oleg Rondon Jr, MD) Anxiety Herniated disc Pancreatitis Social History Smoking Status: Current every day smoker Tobacco Type: smokeless tobacco Substance Use Type: None Meds Medications and Allergies Allergies No Known Allergies Allergy (Verified 03/22/22 18:13) Home Medications No known home meds 03/22/22 [History Confirmed 03/22/22] Exam Physical Exam Vital Signs: Temp Pulse Resp BP Pulse Ox O2 Del Method 98 F 111 H 16 139/86 95 Room Air 03/22/22 22:19 03/22/22 22:19 03/22/22 22:19 03/22/22 22:19 03/22/22 22:19 03/22/22 22:19 Results Labs CBC & Chem 7: 03/22/22 16:20 03/22/22 16:20 Psychiatry Labs: 03/22/22 03/22/22 03/22/22 16:20 16:20 18:20 RBC 5.75 H Hgb 17.2 H Hct 50.2 H MCV 87.3 MCH 30.0 MCHC 34.4 RDW 12.7 Plt Count 344 MPV 8.1 Sodium 133 L Potassium 3.8 Chloride 98 Carbon Dioxide 24.3 BUN 14 Creatinine 0.91 Calcium 9.7 Total Bilirubin 1.3 H AST 28 ALT 43 Alkaline Phosphatase 29 L Total Protein 7.5 Albumin 4.4 Urine Color Yellow Urine Appearance Clear Urine pH 6.5 Ur Specific [place] 1.033 H Urine Protein Trace H Urine Glucose (UA) 500 H Urine Ketones Trace H Urine Occult Blood Negative Urine Nitrite Negative Ur Leukocyte Esterase Negative Urine RBC 1-2 Urine WBC 0-1 Microbiology Microbiology: Microbiology - Results from entire visit 03/22/22 19:42 Nasal SARS Antigen (LFIA) - Final Assessment/Plan (1) Depression: Code(s): F32.A - Depression, unspecified Status: Acute Plan Presented with increased suicidal ideations [place] [address] Plan to restart Effexor as he had good results from it with no complaints Consider adding vitamin D supplementation, level of 14 upon admission Continue to monitor mental status Encourage group participation and medication compliance Risk benefits alternatives explained Documented By: Janessa Dietz DO, RES 03/23/22 0 737 Signed By: <Electronically signed by Alcon Kaba MD> 03/23/22 0858 [facility] Work Phone: Chiqm complaint+Reason for visit Narrative* Chief Complaint left hip pain mental evaluation Reason for Visit Depression [facility] Work Phone: Discharge summary Author Denzel Fonseca [facility] March 25, 2022 1:03pm Note Date/Time March 25, 2022 1: 00pm [facility] [address] [place] [address] Discharge Summary Signed Patient: Harry Vargas MR#: [id number] : 1995 Acct:[id number] Age/Sex: 27 / M Adm Date: 2 Loc: Room: [address] [place] [address]: Saran Kaba MD Copies to: MD Micah Mitchell MD~ Providers Date of Discharge: 03/25/22 Discharging Provider: Denzel Fonseca Primary Care Provider: Micah Frost Discharge Diagnosis (1) Depression: Final Diagnosis Final Discharge Diagnosis: Major depressive disorder Summary Hospital Course Hospital course: According to admission note: 27-year-old male with past medical history of anxiety, disc herniation presented to the emergency department with complaint ofhaving suicidal ideations.? Patient has been depressed over his life situation over the past month or so.? Patient is having some financial difficulties.? Mother is helping with this but he does not feel he deserves it.? Patient has never felt like this in his life.? No homicidal ideations.? Patient has started thinking of a plan to kill himself.? Patient was personally seen by me on the day of the encounter.? I reviewed the history and performed the billy elements of the assessment.? I formulated the planof care and confirmed this with the Resident as noted below Today, pt admits to having suicidal ideations increasing over the past 2 weeks. He had a plan to drive to the [employer] overpass and jump from it. He alerted hiscoworkers who called for him to come in immediately. He has recently had increased depression with decreased motivation, decreased sleep. He had been seeing his PCP Dr. Frost for anxiety up until about a year ago when his insurancechanged. He was taking effexor with good results prior to this but has not takenfor almost a year now. He has not been doing counseling recently either but has been to trauma counseling in the past which helped him. Of note, he has been sober from alcohol for 2 years. Does vape daily. He describes his depression as 6/10 today and anxiety 10/10. He does have an improved appetite and slept about 8 hours. He is requesting a nicotine patch at this time but otherwise has no complaints. Denies suicidal/homicidal ideations. Denies hallucinations. No paranoia, delusions. Past psych history: anxiety, depression Past hospitalizations: none Past suicide attempts: none Family psych history: dad - bipolar, mom's side - bipolar Previous medications: effexor Smoking Status: daily Tobacco Type: vape Substance Use Type: none Social History Comments: lives alone Patient was treated with Effexor which she was previously on in the past. He tolerated the medication without any problems and did not report any side effects. As his dose was increased his depression gradually improved. Did not report any further suicidal thoughts. He did not exhibit any behavior concerning for suicidality during his hospital course. He attended groups and socialized with peers appropriately. On the day of discharge, he reported he isfeeling better. He denied any depression or suicidality. He felt that his depression and anxiety were under better control. He felt comfortable dischargehome and stated that he would follow-up with outpatient services. He also expressed some future oriented thoughts and stated that he would be moving in with his mom and stepfather which he stated were supportive. Time spent discussing smoking cessation with patient: 3 to 10 minutes Condition Condition at Discharge: Stable Status at Discharge Cognitive/behavioral status at discharge: Mental Status Exam: Appearance: grossly normal Mental Status: mental status grossly normal Mood: Euthymic mood Affect: Normal affect Speech and Movement: speech and movement normal and speech clear Attitude: cooperative Thought Process: normal Thought Content: Denied hallucinations, no homicidality and no suicidality Insight: Good Judgment: Good Functional status at discharge: independent ambulation Overall status at discharge: patient is back to baseline Time Spent with Patient Time spent providing/coordinating discharge services (# min): 30 Exam Physical Exam Vital Signs: Temp Pulse Resp BP Pulse Ox O2 Del Method 97.5 F L 72 16 114/73 98 Room Air 03/25/22 07:30 03/25/22 07:30 03/25/22 07:30 03/25/22 07:30 03/25/22 07:30 03/25/22 07:30 Discharge Plan Discharge Plan Patient Disposition: Home Activity: No Activity Restriction Diet: Regular Additional Instructions: Regular diet. No activity restrictions. Instructions: Depression, Adult (DC), [facility] [place] Instructions Prescriptions: New venlafaxine 75 mg Capsule,Extended Release 24hr 75 mg PO DAILY 30 Days Qty: 30 0RF trazodone 50 mg Tablet 50 mg PO QHS PRN (Reason: Insomnia) Qty: 20 0RF nicotine 21 mg/24 hr Patch 24 Hour 1 ea transdermal DAILY Qty: 30 0RF Follow Up: [facility] [Outside] [facility] [Outside] Documented By: Denzel Fonseca MD 03/25/22 1259 Signed By: <Electronically signed by Denzel Fonseca MD> 03/25/22 1303 [facility] Work Phone: Evaluation + Plan note No data available for this section [facility] information available [facility] Work Phone: Evaluation noteNo InformationNort [employer] Other evaluation note* Diagnosis Onset Date Resolution Status Depression acute [facility] Work Phone: Evaluation note* Diagnosis Acute exacerbation of chronic low back pain- Primary Benign paroxysmal positional vertigo, unspecified laterality documented in this encounter [facility] Work Phone: History and physical note Author Alcon cordero [facility] March 23, 2022 8:58am Note Date/Time March 23, 2022 7: 44am [facility] [address] [place], [place] [id number] Psychiatry H&P Signed Patient: Harry Vargas MR#: [id number] [id number] : 1995 Acct:[id number] Age/Sex: 27 / M Adm Date: 2 Loc: Room: [address] [place] [address] Type: ADM IN Attending Dr: Saran Kaba MD Copies to: MD Micah Mitchell DO, RES~ Date of Service: 03/23/2022 HPI Narrative Narrative: 27-year-old male with past medical history of anxiety, disc herniation presentedto the emergency department with complaint of having suicidal ideations.? Patient has been depressed over his life situation over the past month or so.? Patient is having some financial difficulties.? Mother is helping with this but he does not feel he deserves it.? Patient has never felt like this in his life.?No homicidal ideations.? Patient has started thinking of a plan to kill himself.? Patient was personally seen by me on the day of the encounter. I reviewed the history and performed the billy elements of the assessment. I formulated the planof care and confirmed this with the Resident as noted below Today, pt admits to having suicidal ideations increasing over the past 2 weeks. He had a [place] to [place] [employer] [place]. He alerted hiscoworkers who called for him to come in immediately. He has recently had increased depression with decreased motivation, decreased sleep. He had been seeing his PCP Dr. Frost for anxiety up until about a year ago when his insurancechanged. He was taking effexor with good results prior to this but has not takenfor almost a year now. He has not been doing counseling recently either but has been to trauma counseling in the past which helped him. Of note, he has been sober from alcohol for 2 years. Does vape daily. He describes his depression as 6/10 today and anxiety 10/10. He does have an improved appetite and slept about 8 hours. He is requesting a nicotine patch at this time but otherwise has no complaints. Denies suicidal/homicidal ideations. Denies hallucinations. No paranoia, delusions. History of Present Illness History of present illness: Past psych history: anxiety, depression Past hospitalizations: none Past suicide attempts: none Family psych history: dad - bipolar, mom's side - bipolar Previous medications: effexor Smoking Status: daily Tobacco Type: vape Substance Use Type: none Social History Comments: lives alone Review of symptoms: Constitutional: Denies chills and Denies fever(s) Eyes: Denies change in vision ENT: admits to tinnitus, chronic Cardiovascular: Denies chest pain Respiratory: Denies chest congestion and Denies cough Gastrointestinal: Denies change in bowel habits Genitourinary: Denies dysuria Musculoskeletal: Denies myalgias Integumentary/Breasts: Denies dry skin Neurologic: Denies abnormal gait and Denies abnormal movements Psychiatric: admits depression, denies suicidal ideation Physical exam: Const: cooperative Nutritional Appearance: normal weight Orientation: alert, awake and oriented x3 HEENT: Head normal to inspection, hearing grossly normal bilaterally, external nose normal, face symmetric Eyes: appearance normal, both eyes and all related structures, sclerae normal Neck: normal visual inspection and full ROM Resp: normal respiratory effort, able to speak in complete sentences and symmetric chest movement Cardio: regular rate GI: normal to inspection and non-distended Skin: warm, dry Neuro: CNII: Visual gipson intact, CNIII,IV,: EOM intact, no nystagmus. Pupilsequal, round, reactive to light and accommodation, CNV: Sensation intact to light touch, CNVII: Raises eyebrows, smile/frown, puff out cheeks symmetrically,CNVIII: Hearing intact bilaterally, CNIX,X: Voice normal, soft palate elevation normal, symmetrical, CNXI: Shoulder shrug strong, equal bilaterally, CNXII: Tongue protrusion midline, movement symmetrical. Extrem: normal to inspection and full ROM, 5/5 strength bilaterally Mental Status Exam: Appearance: grossly normal Mental Status: mental status grossly normal Mood: normal mood Affect: flat affect Speech and Movement: speech and movement normal and speech clear Attitude: cooperative Thought Process: normal Thought Content: denied hallucinations, no homicidality, positive for suicidality Insight: fair Judgment: fair PMFSH Vaccinated for COVID-19?: Unknown Medical History (Updated 03/23/22 @ 07:33 by Oleg Rondon Jr, MD) Anxiety Herniated disc Pancreatitis Social History Smoking Status: Current every day smoker Tobacco Type: smokeless tobacco Substance Use Type: None Meds Medications and Allergies Allergies No Known Allergies Allergy (Verified 03/22/22 18:13) Home Medications No known home meds 03/22/22 [History Confirmed 03/22/22] Exam Physical Exam Vital Signs: Temp Pulse Resp BP Pulse Ox O2 Del Method 98 F 111 H 16 139/86 95 Room Air 03/22/22 22:19 03/22/22 22:19 03/22/22 22:19 03/22/22 22:19 03/22/22 22:19 03/22/22 22:19 Results Labs CBC & Chem 7: 03/22/22 16:20 03/22/22 16:20 Psychiatry Labs: 03/22/22 03/22/22 03/22/22 16:20 16:20 18:20 RBC 5.75 H Hgb 17.2 H Hct 50.2 H MCV 87.3 MCH 30.0 MCHC 34.4 RDW 12.7 Plt Count 344 MPV 8.1 Sodium 133 L Potassium 3.8 Chloride 98 Carbon Dioxide 24.3 BUN 14 Creatinine 0.91 Calcium 9.7 Total Bilirubin 1.3 H AST 28 ALT 43 Alkaline Phosphatase 29 L Total Protein 7.5 Albumin 4.4 Urine Color Yellow Urine Appearance Clear Urine pH 6.5 Ur Specific [place] 1.033 H Urine Protein Trace H Urine Glucose (UA) 500 H Urine Ketones Trace H Urine Occult Blood Negative Urine Nitrite Negative Ur Leukocyte Esterase Negative Urine RBC 1-2 Urine WBC 0-1 Microbiology Microbiology: Microbiology - Results from entire visit 03/22/22 19:42 Nasal SARS Antigen (LFIA) - Final Assessment/Plan (1) Depression: Code(s): F32.A - Depression, unspecified Status: Acute Plan Presented with increased suicidal ideations [place] [address] [place] Plan to restart Effexor as he had good results from it with no complaints Consider adding vitamin D supplementation, level of 14 upon admission Continue to monitor mental status Encourage group participation and medication compliance Risk benefits alternatives explained Documented By: Janessa Dietz DO, RES 03/23/22 0 737 Signed By: <Electronically signed by Alcon Kaba MD> 03/23/22 0858 [facility] Work Phone: Hisjiar general Narrative - Reported* Type Description Date Medical History Esophageal reflux Hospitalization History pancreatitis [facility] Other [facility] Narrative - Reported* Type Description Date Medical History Esophageal reflux Medical History herniated disc Hospitalization History pancreatitis [facility] Other [facility] Narrative - Reported* Type Description Date Medical History Esophageal reflux Medical History herniated disc Medical History [facility]HO[facility]ANO Hospitalization History pancreatitis [facility] Other Hospital Discharge instructions No data available for this section [facility] Work Phone: [facility] Work Phone: Hospital Discharge instructions Additional Instructions Your pain may be related to the herniated disk seen on your MRI. I think you should make another appointment with Dr Robledo or with the [facility] Work Phone: Hospital Discharge instructions Additional Instructions Regular diet. No activity restrictions.[facility] Work Phone: Progress note Author Alcon cordero [facility] March 24, 2022 10:11am Note Date/Time March 24, 2022 10 :11am [facility] [address] [place] [address] Psychiatry Progress Note Signed Patient: Harry Vargas MR#: [id number] 2142 : 1995 Acct:[id number] Age/Sex: 27 / M Adm Date: 2 Loc: Room: [address] [place] [address] Type : ADM IN Attending Dr: Saran Kaba MD Copies to: ~ Date of Service: 03/24/2022 Subjective Subjective Narrative: Patient reports he is starting to feel better. He rated his depression at 5 out of 10 with 10 being the worst. We discussed importance of med compliance. Anxiety is moderate in intensity with attempted utilization of coping skills. Hedenies SI/HI and verbalized the intent to notify staff if he has such thoughts. He continues to be compliant with prescribed medications and is visible within the unit milieu. He alluded to psychosocial stressors being the primary issue that he is struggling with. We have agreed to continue the current medications regimen. Risks, benefits, andindications of medications were discussed. Appearance: dressed casually Mental Status: mental status grossly normal Mood: Euthymic mood Affect: Normal affect Speech and Movement: speech and movement normal and speech clear Attitude: cooperative Thought Process: normal Thought Content: Denied hallucinations, no homicidality and no suicidality Insight: fair Judgment: fair Impulse control: fair Exam Physical Exam Vital Signs: Temp Pulse Resp BP Pulse Ox O2 Del Method 97.3 F L 76 16 105/66 97 Room Air 03/24/22 07:30 03/24/22 07:30 03/23/22 20:00 03/24/22 07:30 03/24/22 07:30 03/24/22 07:30 Assessment/Plan Assessment/Plan (1) Depression: Code(s): F32.A - Depression, unspecified Status: Acute Plan Patient reports feeling much better on Effexor. Will continue with the 75 mg dose as its more effective than the 37.5. Risks, benefits and indications of medications were discussed with the patient. The patient verbalized understanding. Monitor suicidal behaviors for safety of self (15-minute face check). Recommend attending groups and psychoeducation for building coping skills. No abnormal movements noted on exam. AIMS is Zero. Anticipate discharge tomorrow or Friday Documented By: Alcon Kaba MD 2 1009 Signed By: <Electronically signed by Alcon Kaba MD> 03/24/22 1011 [facility] Work Phone: [facility] visit [facility] [employer] Other Summary Purpose Family History No Family History Records FoundNo Family History Records FoundNo Family History Records FoundNo Family History Records FoundNo Family History Records Found Advance Directives Advance Directive Response Recorded Date/ Time Advance Directives No April 11:49pm Chief Complaint and Reason for Visit Chief Complaint covid swab left hip pain M back spasms abd pain Chief Complaint covid swab left hip pain M back spasms abd pain vomiting Chief Complaint left hip pain M back spasms abd pain vomiting m99.53 Chief Complaint abd pain vomiting m99.53 Chief Complaint abd pain vomiting m99.53 left hip pain Additional Source Comments (unrecognized sect ion and content) No Status Records FoundNo Status Records FoundNo Status Records FoundNo Status Records FoundNo Status Records Found INFORMATION SOURCE (unrecogn ized section and content) DATE CREATED AUTHOR 06/02/2021 [employer] DATE CREATED AUTHOR AUTHOR'S ORGANIZ ATION 11/03/2021 [place] [facility] DATE CREATED AUTHOR AUTHOR'S ORGANIZ ATION 05/05/2022 [facility] [place] DATE CREATED AUTHOR AUTHOR'S ORGANIZ ATION 05/27/2022 [facility] DATE CREATED AUTHOR AUTHOR'S ORGANIZ ATION 09/07/2022 [facility] Care Teams (unrecognized sec tion and content) Team Status: Active Member Role Status Dates Micah Frost , DO Primary Care Provider Active Jennifer Marrero NP Attending Provider Active Team Status: Inactive Member Role Status Dates Micah Frost , DO Primary Care Provider Active Yasmany Parson MD Attending Provider Active Team Status: Inactive Member Role Status Dates Micah Frost , DO Primary Care Provider Active Steve Ro , DO Emergency Provider Active Team Status: Inactive Member Role Status Dates Micah Frost , DO Primary Care Provider Active Sandra Galicia APRN Emergency Provider Active Team Status: Active Member Role Status Dates Micah Frost , DO Primary Care Provider Active Team Status: Inactive Member Role Status Dates Micah Frost , DO Primary Care Provider, Attending Kofi crabtree Active Team Status: Inactive Member Role Status Dates Micah Frost , DO Primary Care Provider Active Oleg Rondon Jr, MD Emergency Provider Active Team Status: Inactive Member Role Status Dates Micah Frost , DO Primary Care Provider Active Dung Todd MD Emergency Provider Active Saran Kaba MD Admit Provider, Attending Pr kashmir Active Process Control Operator Relationship Specialty Start Date End Date Micah Frost [place] [id number] PCP - General 01/25/22 Goals (unrecognized section and content) Goals may be documented in a n alternate section Reason for Visit (unrecogniz ed section and content) SORE THROAT, BREATHING DIFFI CULTY, EARS HURTING , TROUBLE SWALLOWING Reason Comments Back Pain Chronic back pain fo r past few days. Ordered Prescriptions (unrec ognized section and content) Prescription Sig Dispensed Refills Start Date End Da te methylPREDNISolone (MEDROL, TAMELA,) 4 MG tablet Take 1 tablet by mouth See Admin Instructions Take by mouth. 21 tablet 0 05/22/2022 cyclobenzaprine (FLEXERIL) 5 MG tablet Take 1 tablet by mouth 2 times daily as needed for Muscle spasms 10 tablet 0 05/22/2022 05/27/2022 Scheduled Active and Recently Administ ered Medications (unrecognized section and content) Medication Order 05/20/2022 05/21/2022 05/22/2022 cyclobenzaprine (FLEXERIL) tablet 10 mg (COMPLETED) 10 mg, Oral, ONCE, 1 dose, On Fri05/22/22 at 1215 1227 (Given - Provid er: Chana Ruelas RN) ketorolac (TORADOL) injection 60 mg (COMPLETED) Ketorolac is contraindicated in patients with advanced renal impairment and in patients at risk of renal failure due to volume depletion. For 65 years of age and older OR weight less than 50 kg, use 15 mg IV every 6 hours; MAX dose: 60 mg/day. Dose greater than 30 mg must be administered via intramuscular route. Do not administer for more than 5 days., 60 mg, IntraMUSCular, ONCE, 1 dose, On Fri05/22/22 at 1215, Do not administer for more than 5 days. 1227 (Given - Provid er: Chana Ruelas RN) meclizine (ANTIVERT) tablet 12.5 mg (COMPLETED) 12.5 mg, Oral, ONCE, 1 dose, On Fri05/22/22 at 1345 1408 (Given - Provid er: Chana Ruelas RN) FOR RECORDS PERTAINING TO PATIENTS WHO ARE OR HAVE BEEN ENROLLED IN A CHEMICAL DEPENDENCY/SUBSTANCEABUSE PROGRAM, SOME INFORMATION MAY BE OMITTED. This clinical summary was aggregated from multiple sources. Caution should be exercised in using it in the provision of clinical care. This summary normalizes information from multiple sources, and as a consequence, information in this document may materially change the coding, format and clinical context of patient data. In addition, data may be omitted in some cases. CLINICAL DECISIONS SHOULD BE BASED ON THE PRIMARY CLINICAL RECORDS. [facility] [employer] [facility]. provides no warranty or guarantee of the accuracy or completeness of information in this document.
== END 2023-06-11 12:44 | disposition home or self-care (01) ==
PROVIDERS: Emergency Provider Emergency Medicine; Family Provider Family Medicine
DX: B34.9 Viral infection, unspecified (principal); R50.9 Fever, unspecified; Z20.822 Contact with and (suspected) exposure to COVID-19
CPT/HCPCS: 36415; 80048; 81001; 85025; 87635; 87811; 96374; 99284

== ENCOUNTER 2024-01-21 16:34 | Inpatient (IN) | payer MEDICAID, SELFPAY ==
[2024-01-21] VITALS (12 sets, daily range): BP systolic 155–180; BP diastolic 98–110; PULSE 76–102; TEMP 36.6; O2SAT 82–98; BMI 36.0; BMI 34.7
--- NOTE | 2024-01-21 16:47 | ED_ITS ---
HPI - Abdominal Pain General Chief Complaint: Abdominal Pain Stated Complaint: Abdominal Pain Time Seen by Provider: 01/21/24 16:36 Source: patient Mode of arrival: Wheelchair Limitations: no limitations History of Present Illness HPI narrative: And is a 28-year-old male who presents to the emergency department for gradually worsening abdominal pain over the last 3 hours. Patient is restless and uncomfortable on exam cart. He has not had any fevers, vomiting, diarrhea, urinary symptoms. No previous abdominal surgeries. He does have a history of alcoholic pancreatitis 4 years ago, he states he no longer drinks alcohol. No medications taken prior to arrival. He states he ate a bologna sandwich at 1:30 PM that did not seem to make his pain worse. Related Data Home Medications ?Medication ?Instructions ?Recorded ?Confirmed venlafaxine 75 mg capsule,extended 75 mg PO DAILY 01/21/24 01/21/24 release 24 hr Allergies Allergy/AdvReac Type Severity Reaction Status Date / Time No Known Drug Allergies Allergy Verified 06/11/23 11:00 Review of Systems ROS Constitutional Denies: fever or chills Ears, nose, mouth, and throat Denies: throat pain or nasal congestion Cardiovascular Denies: chest pain Respiratory Denies: shortness of breath or cough Gastrointestinal Reports: abdominal pain; Denies: nausea, vomiting or diarrhea Genitourinary Denies: painful urination Musculoskeletal Denies: back pain Integumentary/Breast Denies: rash Endocrine Denies: excessive urination Hematologic/Lymphatic Denies: easy bruising or easy bleeding [facility] Medical History (Updated 01/21/24 @ 18:30 by MILAGROS Escalante) 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) Depression ?F32.A - Depression, unspecified (ICD-10) Fatty liver ?K76.0 - Fatty (change of) liver, not elsewhere classified (ICD-10) Pancreatitis ?K85.90 - Acute pancreatitis without necrosis or infection, unspecified (ICD- 10) Exam Narrative Exam Narrative: Gen.: Awake, alert, in no distress, Moderate discomfort Head: Normocephalic, atraumatic ENT: Moist mucous membranes Respiratory: No respiratory distress Gastrointestinal: Abdomen is soft, nondistended and Tender to palpation in the right upper quadrant with voluntary guarding, no rebound Extremities: Moves extremities equally Psych: Normal mood and affect Neuro: No focal neuro deficit Skin: Warm, dry, intact Constitutional Vital Signs, click to edit/add: Last Vital Signs Temp 97.9 F 01/21/24 16:38 Pulse 97 H 01/21/24 18:01 Resp 18 01/21/24 18:01 BP 155/98 H 01/21/24 18:01 Pulse Ox 93 L 01/21/24 18:01 O2 Del Method Room Air 01/21/24 16:58 Course Vital Signs Vital signs: Vital Signs Temperature 97.9 F 01/21/24 16:38 Pulse Rate 90 01/21/24 16:38 Respiratory Rate 24 H 01/21/24 16:38 Pulse Oximetry 98 01/21/24 16:38 Oxygen Delivery Method Room Air 01/21/24 16:38 Temperature 97.9 F 01/21/24 16:38 Pulse Rate 97 H 01/21/24 18:01 Respiratory Rate 18 01/21/24 18:01 Blood Pressure 155/98 H 01/21/24 18:01 Pulse Oximetry 93 L 01/21/24 18:01 Oxygen Delivery Method Room Air 01/21/24 16:58 MDM - Abdominal Pain MDM Narrative Medical decision making narrative: Patient initially hypertensive, treated with IV fluids, Dilaudid, Zofran. He continued to have moderate pain and was retreated with fentanyl and Pepcid. Labs show mild leukocytosis, elevated lipase and amylase. Lactic acid, bilirubin and LFTs are normal. Patient with no episodes of emesis in the ER. CT shows acute pancreatitis with no necrosis or abscess. Discussed with the hospitalist, patient admitted for pain control and IV fluids. SUPERVISED APC VISIT, PHYSICIAN ATTESTATION: Based on the medical record the care appears appropriate. ? Medical Records Attestation: I reviewed the patient's medical records. Lab Data Attestation: I reviewed the patient's lab results. Labs: Lab Results 01/21/24 Range/Units 16:45 WBC 16.4 H (4.0-11.0) 10^3/uL RBC 5.97 (4.70-6.10) 10^6/uL Hgb 17.1 (14.0-18.0) g/dL Hct 51.0 (42.0-54.0) % MCV 85.4 (80.0-94.0) fL MCH 28.6 (25.9-34.0) pg MCHC 33.5 (29.9-35.2) g/dL RDW 11.9 (11.0-15.0) % Plt Count 360 (150-450) 10^3/uL MPV 9.9 (9.5-13.5) fL Seg Neuts % (Manual) 65.0 Lymphocytes % (Manual) 22.0 (20.5-60.0) % Monocytes % (Manual) 10.0 (1.7-12.0) % Eosinophils % (Manual) 3.0 (0.9-7.0) % Basophils % (Manual) 0.0 L (0.2-2.0) % Neutrophils # (Manual) 10.66 H (1.4-6.5) 10^3/uL Lymphocytes # (Manual) 3.60 (1.20-3.80) 10^3/uL Monocytes # (Manual) 1.64 H (0.30-0.80) 10^3/uL Eosinophils # (Manual) 0.49 (0.00-0.70) 10^3/uL Basophils # (Manual) 0.00 (0.00-0.10) 10^3/uL Sodium 139 (136-145) mmol/L Potassium 3.8 (3.5-5.1) mmol/L Chloride 101 (98-107) mmol/L Carbon Dioxide 26.3 (21.0-32.0) mmol/L Anion Gap 15.5 BUN 20.0 H (7.0-18.0) mg/dL Creatinine 0.95 (0.70-1.30) mg/dL Est GFR ( Amer) >60 (>=60) Est GFR (Non-Af Amer) >60 (>=60) BUN/Creatinine Ratio 21.1 Glucose 119 H (74-106) mg/dL Lactate 1.7 (0.4-2.0) mmol/L Calcium 9.6 (8.5-10.1) mg/dL Total Bilirubin 0.4 (0.2-1.0) mg/dL AST 23 (15-37) U/L ALT 59 (16-63) U/L Alkaline Phosphatase 52 (46-116) U/L Total Protein 8.5 H (6.4-8.2) g/dL Albumin 4.4 (3.4-5.0) g/dL Globulin 4.1 g/dL Albumin/Globulin Ratio 1.1 Amylase 1956 H* (25-115) U/L Lipase 3965.0 H* (16.0-77.0) U/L Imaging Data CT scan - abdomen: Attestation: I have reviewed the pertinent imaging results. Radiologist's impression: ITS Impressions Abdomen/Pelvis CT 01/21/24 17:15 IMPRESSION: 1. Acute pancreatitis without evidence of necrosis or organized collection. 2. Hepatic steatosis. Electronically authenticated by: XENIA BATES Date: 01/21/2024 18:13 Discharge Plan Discharge Chief Complaint: Abdominal Pain Clinical Impression: Pancreatitis Patient Disposition: Admitted as Observation Time of Disposition Decision: 18:30 Condition: Good Prescriptions / Home Meds: No Action venlafaxine 75 mg capsule,extended release 24hr 75 mg PO DAILY Print Language: Dutch Referrals: Physician,Non-Staff, MD [Primary Care Provider] - 1 week
--- OUTSIDE RECORDS SUMMARY | 2024-01-21 16:47 | XMS_ITS | CCD ---
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 chronic kidney disease. Pharmacy Creatinine Clearance (Chem 119.15 [facility] SARS Antigen (LFIA) [facility] Phencyclidine Screen Ql (U)O rdered By: Dung Todd on 03-22-2022 Phencyclidine Ql (U) Negative Negative [facility] Platelet mean volume Auto (B ld) [Entitic vol]Ordered By: Dung Todd on 03-22-2022 Platelet mean volume (Bld) [Entitic vol] 8.1 fL 6.6-10.1 [facility] Platelets Auto (Bld) [#/Vol] Ordered By: Dung Todd on 03-22-2022 Platelets (Bld) [#/Vol] 344 10*3/uL 150-450 [facility] Protein Auto test strip (U) [Mass/Vol]Ordered By: Dung Todd on 03-22-2022 Protein (U) [Mass/Vol] Trace mg/dL Negative [facility] Protein [Mass/volume] in Ser um or PlasmaOrdered By: Dung Todd on 03-22-2022 Protein [Mass/Vol] 7.5 g/dL 6.1-7.9 [facility] RBC Auto (Bld) [#/Vol]Ordere d By: Dung Todd on 03-22-2022 RBC (Bld) [#/Vol] 5.75 10*6/uL 3.90-5.60 [facility] Serum or plasma alanine bhandari otransferase measurement without P-5'-P (enzymatic activiOrdered By: Dung Todd on 03-22-2022 ALT No additional P-5'-P [Catalytic activity/Vol] 43 U/L 10-60 [facility] Serum or plasma albumin/glob ulin mass ratioOrdered By: Dung Todd on 03-22-2022 Albumin/Globulin [Mass ratio] 1.4 {ratio} [facility] Serum or plasma alkaline monico sphatase measurement (enzymatic activity/volume)Ordered By: Dung Todd on 03-22-2022 ALP [Catalytic activity/Vol] 29 U/L 32-92 [facility] Serum or plasma aspartate am inotransferase measurement (enzymatic activity/volume)Ordered By: Dung Todd on 03-22-2022 AST [Catalytic activity/Vol] 28 U/L 10-42 [facility] Serum or plasma calcium bobby urement (mass/volume)Ordered By: Dung Todd on 03-22-2022 Calcium [Mass/Vol] 9.7 mg/dL 8.2-10.2 [facility] Serum or plasma chloride fabian surement (moles/volume)Ordered By: Dung Todd on 03-22-2022 Chloride [Moles/Vol] 98 mmol/L 95-114 [facility] Serum or plasma ethanol bobby urement (mass/volume)Ordered By: Dung Todd on 03-22-2022 Ethanol [Mass/Vol] mg/dL [facility] Ethanol [Mass/Vol] TNP [facility] Comment on above: Test not performed Serum or plasma glucose bobby urement (mass/volume)Ordered By: Dung Todd on 03-22-2022 Glucose [Mass/Vol] 142 mg/dL 70-100 [facility] Comment on above: ADA recommended refe rence range Random Glucose Reference Range is dependent on time and content of last meal. Glucose of more than 200 mg/dL in a nonstressed, ambulatory subject supports the diagnosis of Diabetes Mellitus. Serum or plasma high density lipoprotein (HDL) cholesterol measurementOrdered By: Alcon Kaba on 03-22-2022 Cholesterol in HDL [Mass/Vol] 41 mg/dL 29-71 [facility] Comment on above: HDL CHOL ATP-III CLA SSIFICATION Cardiovascular Risk HDL > or equal to 60 mg/dL LOW HDL < 40 mg/dL HIGH Serum or plasma potassium me asurement (moles/volume)Ordered By: Dung Todd on 03-22-2022 Potassium [Moles/Vol] 3.8 mmol/L 3.5-5.1 [facility] Serum or plasma sodium measu rement (moles/volume)Ordered By: Dung Todd on 03-22-2022 Sodium [Moles/Vol] 133 mmol/L 136-146 [facility] Serum or plasma total biliru bin measurement (mass/volume)Ordered By: Dung Todd on 03-22-2022 Bilirubin [Mass/Vol] 1.3 mg/dL 0.3-1.2 [facility] Comment on above: Samples from patient s who have taken Naproxen have shown spurious elevation in Total Bilirubin levels. A metabolite of Naproxen, O-desmethylnaproxen, has been shown to interfere with the Alessandro-Amy method for measuring Total Bilirubin. Serum or plasma total carbon dioxide measurement (moles/volume)Ordered By: Dung Todd on 03-22-2022 CO2 [Moles/Vol] 24.3 mmol/L 22.0-30.0 [facility] Serum or plasma total choles terol/high density lipoprotein (HDL) cholesterol mass ratOrdered By: Alcon Kaba on 03-22-2022 Cholesterol.total/Cho lesterol in HDL [Mass ratio] 4.7 {ratio} <5.0 [facility] Serum or plasma urea nitroge n measurement (mass/volume)Ordered By: Dung Todd on 03-22-2022 Urea nitrogen [Mass/Vol] 14 mg/dL 04-26 [facility] Specific gravity Auto test s trip (U) [Rel density]Ordered By: Dung Todd on 03-22-2022 Specific gravity (U) [Rel density] 1.033 1.001-1.030 [facility] Squamous epithelial cells de tection in urine sediment by light microscopyOrdered By: Dung Todd on 03-22-2022 Epithelial cells.squamous LM Ql (Urine sed) None seen [HPF] 0-2 [facility] TSH DL <= 0.005 mIU/L QnOrde red By: Alcon Kaba on 03-22-2022 TSH Qn 1.02 m[IU]/L 0.45-5.33 [facility] Triglyceride [Mass/volume] i n Serum or PlasmaOrdered By: Alcon Kaba on 03-22-2022 Triglyceride [Mass/Vol] 345 mg/dL 35-149 [facility] Comment on above: TRIG ATP III CLASSIF ICATION TRIG less than 150 mg/dL Normal TRIG 150-199 mg/dL Borderline high TRIG 200-500 mg/dL High TRIG greater than 500 mg/dL Very high Standard traceable to the Center for Disease Conrtrol and Prevention (CDC) test method. Urine bacteria detection by automated methodOrdered By: Dung Todd on 03-22-2022 Bacteria Auto Ql (U) None seen None Seen [facility] Urine clarity by refractomet ry automatedOrdered By: Dung Todd on 03-22-2022 Clarity Refractometry automated (U) Clear Clear [facility] Urine cocaine detectionOrder ed By: Dung Todd on 03-22-2022 Cocaine Ql (U) Negative Negative [facility] Urine glucose measurement by automated test strip (mass/volume)Ordered By: Dung Todd on 03-22-2022 Glucose Auto test strip (U) [Mass/Vol] 500 mg/dL Normal [facility] Urine hemoglobin detection b y automated test stripOrdered By: Dung Todd on 03-22-2022 Hemoglobin Auto test strip Ql (U) Negative Negative [facility] Urine leukocyte esterase det ection by automated test stripOrdered By: Dung Todd on 03-22-2022 Leukocyte esterase Auto test strip Ql (U) Negative Negative [facility] Urobilinogen Auto test strip (U) [Mass/Vol]Ordered By: Dung Todd on 03-22-2022 Urobilinogen (U) [Mass/Vol] Normal mg/dL Normal [facility] pH Auto test strip (U)Ordere d By: Dung Todd on 03-22-2022 pH (U) 6.5 [pH] 5.0-9.0 [facility] COVID-19 Detected/Not Detect edOrdered By: Steve Ro on 10-28-2021 SARS-CoV-2 (COVID-19) RNA MAKI+non-probe Ql (Nph) Not detected Not Detecte [facility] Comment on above: This is a duplicate RP2.1 COVID (PCR) result to be used for statistical tracking purpose only. COVID-19 SOFIAOrdered By: Gen Ro on 10-28-2021 SARS-CoV+SARS-CoV-2 (COVID-19) Ag IA.rapid Ql (Resp) Negative Negative [facility] Comment on above: This is a duplicate Munira SARS Antigen (CHERIE) result to be used for statistical tracking purpose only. Clostridioides difficile tox in B tcdB gene [Presence] in Stool by MAKI with probe deteOrdered By: Steve Ro on 10-28-2021 C. difficile toxin B tcdB gene MAKI+probe Ql (Stl) Negative Negative [facility] Comment on above: Testing performed by RT-PCR No Panel InformationOrdered By: Steve Ro on 10-28-2021 Respiratory Panel (PCR) [facility] Urine lactic acid measuremen tOrdered By: Steve oR on 10-28-2021 Lactate (U) [Moles/Vol] 2.1 mmol/L [facility] Comment on above: Results calledat 003 1 on 10/28/21 Results called at 0031 on 10/28/21 Automated erythrocytes count in urine sediment (number/area)Ordered By: Steve Ro on 10-27-2021 RBC Auto (Urine sed) [#/Area] 0-1 [HPF] [facility] Automated leukocytes count i n urine sediment (number/area)Ordered By: Steve Ro on 10-27-2021 WBC Auto (Urine sed) [#/Area] None seen [HPF] [facility] Basophils Auto (Bld) [#/Vol] Ordered By: Steve Ro on 10-27-2021 Basophils (Bld) [#/Vol] 0.1 10*3/uL 0.0-0.2 [facility] Basophils/100 WBC Auto (Bld) Ordered By: Steve Ro on 10-27-2021 Basophils/100 WBC (Bld) 0.3 % [facility] Bilirubin Test strip Ql (U)O rdered By: Steve Ro on 10-27-2021 Bilirubin Ql (U) Negative Negative [facility] Blood hemoglobin measurement (mass/volume)Ordered By: Steve Ro on 10-27-2021 Hemoglobin (Bld) [Mass/Vol] 17.7 g/dL 13.0-17.0 [facility] Blood leukocytes automated c ount (number/volume)Ordered By: Steve Ro on 10-27-2021 WBC (Bld) [#/Vol] 18.5 10*3/uL 4.5-11.0 [facility] Body fluid albumin measureme nt (mass/volume)Ordered By: Steve Ro on 10-27-2021 Albumin (Body fld) [Mass/Vol] 4.6 g/dL 3.2-5.5 [facility] Color Auto (U)Ordered By: Gen Ro on 10-27-2021 Color (U) Yellow Yellow [facility] Creatinine and Glomerular fi ltration rate.predicted panel (S/P/Bld)Ordered By: Steve Ro on 10-27-2021 Creatinine [Mass/Vol] 0.87 mg/dL 0.64-1.27 [facility] Direct bilirubin measurement Ordered By: Steve Ro on 10-27-2021 Bilirubin.direct [Mass/Vol] 0.1 mg/dL 0.0-0.4 [facility] Eosinophils Auto (Bld) [#/Vo l]Ordered By: Steve Ro on 10-27-2021 Eosinophils (Bld) [#/Vol] 0.1 10*3/uL 0.0-0.45 [facility] Eosinophils/100 WBC Auto (Bl d)Ordered By: Steve Ro on 10-27-2021 Eosinophils/100 WBC (Bld) 0.5 % [facility] Erythrocyte distribution wid th Auto (RBC) [Ratio]Ordered By: Steve Ro on 10-27-2021 Erythrocyte distribution width (RBC) [Ratio] 12.3 % 12.0-14.8 [facility] Estimated glomerular filtrat ion rate (GFR) non- AmericanOrdered By: Steve Ro on 10-27-2021 GFR/1.73 sq M.predicted among non-blacks MDRD (S/P/Bld) [Vol rate/Area] > 60 mL/Min [facility] Globulin Calc (S) [Mass/Vol] Ordered By: Steve Ro on 10-27-2021 Globulin (S) [Mass/Vol] 3.2 g/dL [facility] Hematocrit Auto (Bld) [Volum e fraction]Ordered By: Steve Ro on 10-27-2021 Hematocrit (Bld) [Volume fraction] 51.5 % 38.8-50.0 [facility] Ketones Auto test strip (U) [Mass/Vol]Ordered By: Steve Ro on 10-27-2021 Ketones (U) [Mass/Vol] Trace Negative [facility] Laboratory - Chemistry and C hemistry - challengeOrdered By: Steve Ro on 10-27-2021 Lipase [Catalytic activity/Vol] 56.0 U/L [facility] Laboratory - Hematology and Cell countsOrdered By: Steve Ro on 10-27-2021 Nucleated RBC/100 WBC (Bld) [Ratio] 0.1 % 0-0.5 [facility] Laboratory - UrinalysisOrder ed By: Steve Ro on 10-27-2021 Hyaline casts LM Ql (Urine sed) None seen [LPF] [facility] Lymphocytes Auto (Bld) [#/Vo l]Ordered By: Steve Ro on 10-27-2021 Lymphocytes (Bld) [#/Vol] 1.5 10*3/uL 1.00-4.8 [facility] Lymphocytes/100 WBC Auto (Bl d)Ordered By: Steve Ro on 10-27-2021 Lymphocytes/100 WBC (Bld) 8.2 % [facility] MCH Auto (RBC) [Entitic mass ]Ordered By: Steve Ro on 10-27-2021 MCH (RBC) [Entitic mass] 30.1 pg 27.5-35.2 [facility] MCHC Auto (RBC) [Mass/Vol]Or dered By: Steve Ro on 10-27-2021 MCHC (RBC) [Mass/Vol] 34.3 g/dL 32.5-35.6 [facility] MCV Auto (RBC) [Entitic vol] Ordered By: Steve Ro on 10-27-2021 MCV (RBC) [Entitic vol] 87.7 fL 83.5-101 [facility] Monocytes Auto (Bld) [#/Vol] Ordered By: Steve Ro on 10-27-2021 Monocytes (Bld) [#/Vol] 1.4 10*3/uL 0.0-0.8 [facility] Monocytes/100 WBC Auto (Bld) Ordered By: Steve Ro on 10-27-2021 Monocytes/100 WBC (Bld) 7.5 % [facility] Neutrophils Auto (Bld) [#/Vo l]Ordered By: Steve Ro on 10-27-2021 Neutrophils (Bld) [#/Vol] 15.5 10*3/uL 1.8-7.7 [facility] Neutrophils/100 WBC Auto (Bl d)Ordered By: Steve Ro on 10-27-2021 Neutrophils/100 WBC (Bld) 83.5 % [facility] Nitrite Test strip Ql (U)Ord ered By: Steve Ro on 10-27-2021 Nitrite Ql (U) Negative Negative [facility] No Panel InformationOrdered By: Steve Ro on 10-27-2021 Estimated GFR () > 60 mL/Min [facility] Comment on above: GFR estimated refere nce range: According to KDOQI guidelines, <60 ml/min/1.73m2 is sufficient to diagnose a patient with chronic kidney disease. Pharmacy Creatinine Clearance (Chem 126.89 [facility] Platelet mean volume Auto (B ld) [Entitic vol]Ordered By: Steve Ro on 10-27-2021 Platelet mean volume (Bld) [Entitic vol] 8.0 fL 6.6-10.1 [facility] Platelets Auto (Bld) [#/Vol] Ordered By: Steve Ro on 10-27-2021 Platelets (Bld) [#/Vol] 298 10*3/uL 150-450 [facility] Protein Auto test strip (U) [Mass/Vol]Ordered By: Steve Ro on 10-27-2021 Protein (U) [Mass/Vol] Negative Negative [facility] Protein [Mass/volume] in Ser um or PlasmaOrdered By: Steve Ro on 10-27-2021 Protein [Mass/Vol] 7.8 g/dL 6.1-7.9 [facility] RBC Auto (Bld) [#/Vol]Ordere d By: Steve Ro on 10-27-2021 RBC (Bld) [#/Vol] 5.87 10*6/uL 3.90-5.60 [facility] Serum or plasma alanine bhandari otransferase measurement without P-5'-P (enzymatic activiOrdered By: Steve Ro on 10-27-2021 ALT No additional P-5'-P [Catalytic activity/Vol] 45 U/L 10-60 [facility] Serum or plasma albumin/glob ulin mass ratioOrdered By: Steve Ro on 10-27-2021 Albumin/Globulin [Mass ratio] 1.4 {ratio} [facility] Serum or plasma alkaline monico sphatase measurement (enzymatic activity/volume)Ordered By: Steve Ro on 10-27-2021 ALP [Catalytic activity/Vol] 33 U/L 32-92 [facility] Serum or plasma aspartate am inotransferase measurement (enzymatic activity/volume)Ordered By: Steve Ro on 10-27-2021 AST [Catalytic activity/Vol] 26 U/L 10-42 [facility] Serum or plasma calcium bobby urement (mass/volume)Ordered By: Steve Ro on 10-27-2021 Calcium [Mass/Vol] 9.8 mg/dL 8.2-10.2 [facility] Serum or plasma chloride fabian surement (moles/volume)Ordered By: Steve Ro on 10-27-2021 Chloride [Moles/Vol] 99 mmol/L 95-114 [facility] Serum or plasma glucose bobby urement (mass/volume)Ordered By: Steve Ro on 10-27-2021 Glucose [Mass/Vol] 99 mg/dL 70-100 [facility] Comment on above: ADA recommended refe [...] Ro on 10-27-2021 Bilirubin.indirect [Mass/Vol] 1.1 mg/dL [facility] Serum or plasma potassium me asurement (moles/volume)Ordered By: Steve Ro on 10-27-2021 Potassium [Moles/Vol] 3.7 mmol/L 3.5-5.1 [facility] Serum or plasma sodium measu rement (moles/volume)Ordered By: Steve Ro on 10-27-2021 Sodium [Moles/Vol] 131 mmol/L 136-146 [facility] Serum or plasma total biliru bin measurement (mass/volume)Ordered By: Steve Ro on 10-27-2021 Bilirubin [Mass/Vol] 1.2 mg/dL 0.3-1.2 [facility] Serum or plasma total carbon dioxide measurement (moles/volume)Ordered By: Steve Ro on 10-27-2021 CO2 [Moles/Vol] 20.2 mmol/L 22.0-30.0 [facility] Serum or plasma urea nitroge n measurement (mass/volume)Ordered By: Steve Ro on 10-27-2021 Urea nitrogen [Mass/Vol] 13 mg/dL 9-23 [facility] Specific gravity Auto test s trip (U) [Rel density]Ordered By: Steve Ro 10-27-2021 Specific gravity (U) [Rel density] 1.019 1.001-1.030 [facility] Squamous epithelial cells de tection in urine sediment by light microscopyOrdered By: Steve Ro 10-27-2021 Epithelial cells.squamous LM Ql (Urine sed) None seen [HPF] [facility] [facility] Urine bacteria detection by automated methodOrdered By: Steve Ro on 10-27-2021 Bacteria Auto Ql (U) None seen None Seen [facility] Urine clarity by refractomet ry automatedOrdered By: Steve Ro on 10-27-2021 Clarity Refractometry automated (U) Clear Clear [facility] Urine glucose measurement by automated test strip (mass/volume)Ordered By: Steve Ro on 10-27-2021 Glucose Auto test strip (U) [Mass/Vol] Normal mg/dL Normal [facility] Urine hemoglobin detection b y automated test stripOrdered By: Steve Ro on 10-27-2021 Hemoglobin Auto test strip Ql (U) Trace Negative [facility] Urine leukocyte esterase det ection by automated test stripOrdered By: Steve Ro on 10-27-2021 Leukocyte esterase Auto test strip Ql (U) Negative Negative [facility] Urobilinogen Auto test strip (U) [Mass/Vol]Ordered By: Steve Ro on 10-27-2021 Urobilinogen (U) [Mass/Vol] Normal mg/dL Normal [facility] pH Auto test strip (U)Ordere d By: Steve Ro on 10-27-2021 pH (U) 5.0 [pH] 5.0-9.0 [facility] Respiratory specimen 2019 no bessy coronavirus RNA detection by probe and target amplifiOrdered By: Yasmany Parson on 08-03-2021 SARS-CoV-2 (COVID-19) RNA MAKI+probe Ql (Resp) Not detected Not Detected [facility] Comment on above: This nucleic acid am [...] of in vitro diagnostic tests for detection [id number] virus and/or diagnosis of COVID-19 infectionunder section [...] visit. Follow-up as needed only Chief Complaint RASHAD VARGAS is being seen for an initial [...] 01Jun2021 11:45AMRecorded: 01Jun2021 11:43AM Heart Rate87, Apical Vbdxwnuv213, LUE, Supine Ectdsouut00, LUE, Supine Height5 ft 4.5 in Rhpaat156 lb BMI Harmbeuxot54.41 kg/m2 BSA Calculated1.85 Tobacco Usea) Yes Patient encouraged to stop using tobacco productsYes Systolic Xuhyj707, LUE, Supine Diastolic Lying88, LUE, Supine Systolic Iuwnbhk905, LUE, Sitting Diastolic Pwhuvjb09, LUE, Sitting Systolic Arsmcmil281, LUE, Standing Diastolic Yxmtntqv558, LUE, Standing EKG done in office today. Signatures Electronically signed by : Dung Merchant DO; Jun 01 2021 12:07PM EST (Author) Normal [employer] Vital Signs Date Time Vital Sign Value Performing Clinician Facility 09-30-2023 08:43-0500 Blood Pressure Location Micah Link [facility] 09-30-2023 08:43-0500 Diastolic blood pressure 80 mm[Hg] Micah Link [facility] 09-30-2023 08:43-0500 Heart rate 90 /min Micah Link [facility] 09-30-2023 08:43-0500 SaO2% (BldA) [Mass fraction] 98 % Micah Link [facility] 09-30-2023 08:43-0500 Systolic blood pressure 122 mm[Hg] Micah Link [facility] 08-21-2023 16:15-0500 Blood Pressure Location Micah Link [facility] 08-21-2023 16:15-0500 Diastolic blood pressure 80 mm[Hg] Micah Link [facility] 08-21-2023 16:15-0500 Heart rate 111 /min Micah Link [facility] 08-21-2023 16:15-0500 SaO2% (BldA) [Mass fraction] 97 % Micah Link [facility] 08-21-2023 16:15-0500 Systolic blood pressure 132 mm[Hg] Micah Link [facility] 05-16-2023 11:15-0400 Body height 162.56 cm Dara Gant Other [employer] Other 05-16-2023 11:15-0400 Body mass index (BMI) [Ratio] 35.18 kg/m2 Dara Gant Other [employer] Other 05-16-2023 11:15-0400 Body temperature 98.3 [degF] Dara Gant Other [employer] Other 05-16-2023 11:15-0400 Body weight 92.99 kg Dara Gant Other [employer] Other 05-16-2023 11:15-0400 Respiratory rate 18 /min Dara Gant Other [employer] Other 05-16-2023 11:15-0400 SaO2% (BldA) [Mass fraction] 97 % Dara Gant Other [employer] Other 10-12-2022 09:10-0500 Body height 162.56 cm Lyly Opal Other [employer] Other 10-12-2022 09:10-0500 Body mass index (BMI) [Ratio] 34.22 kg/m2 Lyly Opal Other [employer] Other 10-12-2022 09:10-0500 Body temperature 99.2 [degF] Lyly Joseph Other [employer] Other 10-12-2022 09:10-0500 Body weight 90.45 kg Lyly Joseph Other [employer] Other 10-12-2022 09:10-0500 Diastolic blood pressure 101 mm[Hg] Lyly Joseph Other [employer] Other 10-12-2022 09:10-0500 SaO2% (BldA) [Mass fraction] 97 % Lyly Joseph Other [employer] Other 10-12-2022 09:10-0500 Systolic blood pressure 149 mm[Hg] Lyly Joseph Other [employer] Other 06-03-2022 16:35-0400 Body height 162.56 cm Lyly Joseph Other [employer] Other 06-03-2022 16:35-0400 Body mass index (BMI) [Ratio] 32.61 kg/m2 Lyly Joseph Other [employer] Other 06-03-2022 16:35-0400 Body temperature 97.6 [degF] Lyly Joseph Other [employer] Other 06-03-2022 16:35-0400 Body weight 86.18 kg Lyly Joseph Other [employer] Other 06-03-2022 16:35-0400 Respiratory rate 18 /min Lyly Joseph Other [employer] Other 06-03-2022 16:35-0400 SaO2% (BldA) [Mass fraction] 96 % Lyly Joseph Other [employer] Other 05-22-2022 12:10-0400 Body temperature 98.2 [degF] Ambassador Work Phone: [email or web address] 05-22-2022 12:10-0400 Diastolic blood pressure 64 mm[Hg] [employer] Work Phone: [email or web address] 05-22-2022 12:10-0400 Heart rate 89 /min [employer] Work Phone: [email or web address] 05-22-2022 12:10-0400 Respiratory rate 16 /min Micah Bid Nerd Work Phone: [email or web address] 05-22-2022 12:10-0400 SaO2% (BldA) [Mass fraction] 97 % Micah Link Work Phone: [facility] 05-22-2022 12:10-0400 Systolic blood pressure 124 mm[Hg] Micah Link Work Phone: [facility] 03-25-2022 13:48-0400 Body height 163.83 cm DO Micah Link Work Phone: [facility] 03-25-2022 09:00-0400 Body weight 84.4 kg DO Micah Link Work Phone: [facility] 03-25-2022 07:30-0400 Body temperature 97.5 [degF] DO Micah Link Work Phone: [facility] 03-25-2022 07:30-0400 Diastolic blood pressure 73 mm[Hg] DO Micah Link Work Phone: [facility] 03-25-2022 07:30-0400 Heart rate 72 /min DO Micah Link Work Phone: [facility] 03-25-2022 07:30-0400 Respiratory rate 16 /min DO Micah Link Work Phone: [facility] 03-25-2022 07:30-0400 SaO2% (BldA) [Mass fraction] 98 % DO Micah Link Work Phone: [facility] 03-25-2022 07:30-0400 Systolic blood pressure 114 mm[Hg] DO Micah Link Work Phone: [facility] 01-07-2022 03:26-0400 Diastolic blood pressure 74 mm[Hg] DO Micah Link Work Phone: [facility] 01-07-2022 03:26-0400 Heart rate 89 /min DO Micah Link Work Phone: [facility] 01-07-2022 03:26-0400 Respiratory rate 18 /min DO Micah Link Work Phone: [facility] 01-07-2022 03:26-0400 SaO2% (BldA) [Mass fraction] 98 % DO Micah Link Work Phone: [facility] 01-07-2022 03:26-0400 Systolic blood pressure 136 mm[Hg] DO Micah Link Work Phone: [facility] 01-07-2022 01:43-0400 Body height 162.56 cm DO Micah Link Work Phone: [facility] 01-07-2022 01:43-0400 Body mass index (BMI) [Ratio] 30.9 kg/m2 DO Micah Link Work Phone: [facility] 01-07-2022 01:43-0400 Body temperature 98.1 [degF] DO Micah Link Work Phone: [facility] 01-07-2022 01:43-0400 Body weight 81.64 kg DO Micah Link Work Phone: [facility] 10-28-2021 07:05-0400 Heart rate 96 /min DO Micah Link Work Phone: [facility] 10-28-2021 07:05-0400 Respiratory rate 20 /min DO Micah Link Work Phone: [facility] 10-28-2021 07:05-0400 SaO2% (BldA) [Mass fraction] 97 % DO Micah Link Work Phone: [facility] 10-28-2021 05:13-0400 Body height 162.56 cm DO Micah Link Work Phone: [facility] 10-28-2021 05:13-0400 Body mass index (BMI) [Ratio] 33.2 kg/m2 DO Micah Link Work Phone: [facility] 10-28-2021 05:13-0400 Body weight 87.7 kg DO Micah Link Work Phone: [facility] 10-28-2021 05:12-0400 Body temperature 99 [degF] DO Micah Link Work Phone: [facility] 10-28-2021 05:12-0400 Diastolic blood pressure 80 mm[Hg] DO Micah Link Work Phone: [facility] 10-28-2021 05:12-0400 Systolic blood pressure 142 mm[Hg] DO Micah Link Work Phone: [facility] 10-28-2021 02:33-0400 Diastolic blood pressure 66 mm[Hg] DO Micah Link Work Phone: [facility] 10-28-2021 02:33-0400 Heart rate 87 /min DO Micah Link Work Phone: [facility] 10-28-2021 02:33-0400 Respiratory rate 18 /min DO Micah Link Work Phone: [facility] 10-28-2021 02:33-0400 SaO2% (BldA) [Mass fraction] 96 % DO Micah Link Work Phone: [facility] 10-28-2021 02:33-0400 Systolic blood pressure 119 mm[Hg] DO Micah Link Work Phone: [facility] 10-27-2021 22:54-0400 Body height 162.56 cm DO Micah Link Work Phone: [facility] 10-27-2021 22:54-0400 Body mass index (BMI) [Ratio] 32.3 kg/m2 DO Micah Link Work Phone: [facility] 10-27-2021 22:54-0400 Body temperature 98.4 [degF] DO Micah Link Work Phone: [facility] 10-27-2021 22:54-0400 Body weight 85.5 kg DO Micah Link Work Phone: [facility] 09-09-2021 19:55-0500 Diastolic blood pressure 86 mm[Hg] DO Micah Link Work Phone: [facility] 09-09-2021 19:55-0500 Heart rate 89 /min DO Micah Link Work Phone: [facility] 09-09-2021 19:55-0500 Respiratory rate 20 /min DO Micah Link Work Phone: [facility] 09-09-2021 19:55-0500 SaO2% (BldA) [Mass fraction] 98 % DO Micah Link Work Phone: [facility] 09-09-2021 19:55-0500 Systolic blood pressure 138 mm[Hg] DO Micah Link Work Phone: [facility] 09-09-2021 18:25-0500 Body height 162.56 cm DO Micah Link Work Phone: [facility] 09-09-2021 18:25-0500 Body mass index (BMI) [Ratio] 32.3 kg/m2 DO Micah Link Work Phone: [facility] 09-09-2021 18:25-0500 Body temperature 98.5 [degF] DO Micah Link Work Phone: [facility] 09-09-2021 18:25-0500 Body weight 85.55 kg DO Micah Link Work Phone: [facility] Encounters Encounter Date Encounter Type Care Provider Facility Start: 11-25-2023 End: 11-26-2023 ambulatory Physician Unavailable Facility:[facility] Start: 10-30-2023 ambulatory Micah C Link Facility:[facility] Start: 10-23-2023 End: 10-24-2023 ambulatory Suzie Melgoza PA-C Facility:[facility] Start: 10-01-2023 ambulatory Raudel Dickson III, MD Facility:[facility] Start: 10-01-2023 End: 10-02-2023 ambulatory Raudel Dickson III, MD Facility:[facility] Start: 10-01-2023 End: 10-01-2023 ambulatory Raudel Dickson III, MD Facility:[facility] Start: 09-30-2023 End: 10-01-2023 ambulatory Micah C Link Facility:[facility] Start: 09-30-2023 End: 09-30-2023 Patient encounter procedure Micah C Link [facility] Start: 09-30-2023 End: 09-30-2023 Preprocedural examination done Micah C Link [facility] Start: 09-29-2023 End: 09-30-2023 ambulatory Raudel Dickson III, MD Facility:[facility] Start: 09-26-2023 End: 09-27-2023 ambulatory Raudel Dickson III, MD Facility:[facility] Start: 09-25-2023 ambulatory Alcon Campos acility:[facility] Start: 09-24-2023 End: 09-25-2023 ambulatory Veronica Hyde PA-C Facility[facility] Start: 09-18-2023 End: 09-19-2023 ambulatory Physician Unavailable Facility:[facility] Start: 09-16-2023 End: 09-17-2023 ambulatory Emiliano Comer DC Facility:[facility] Start: 08-25-2023 End: 08-26-2023 ambulatory Micah C Link [place] Start: 08-25-2023 End: 08-25-2023 Lab Drop off Micah C Link [facility] Start: 08-25-2023 End: 08-25-2023 Patient encounter procedure Micah C Link [facility] Start: 08-21-2023 End: 08-22-2023 ambulatory Micah C Link Facility:[facility] Start: 08-21-2023 End: 08-21-2023 Patient encounter procedure Micah C Link [facility] Start: 05-16-2023 End: 05-16-2023 ambulatory Dara Gant Other [employer] Other Start: 05-16-2023 Office outpatient vi sit 15 minutes Dara Alfreda [facility] Start: 10-12-2022 End: 10-12-2022 ambulatory Lyly Opal Other [employer] Other Start: 10-12-2022 Office outpatient vi sit 15 minutes Lyly Opal [facility] Start: 06-03-2022 End: 06-03-2022 ambulatory Lyly Opal Other [employer] Other Start: 06-03-2022 Office outpatient vi sit 25 minutes Lyly Opal [facility] Start: 05-22-2022 Emergency department patient visit MICAH APPLE [facility] Start: 05-22-2022 End: 05-22-2022 Emergency department patient visit Micah Apple Work Phone: [facility] ED Comment on above: Acute exacerbation o f chronic low back pain (Primary Dx); Benign paroxysmal positional vertigo, unspecified laterality Start: 04-25-2022 ambulatory [facility] Start: 03-22-2022 End: 03-25-2022 Evaluation and management of inpatient DO Micah Apple Work Phone: [facility] Start: 02-07-2022 End: 02-07-2022 ambulatory Kapil Robledo Other [employer] Other Start: 02-07-2022 Telephone encounter Kapil Robledo [facility] Start: 01-07-2022 End: 01-07-2022 Emergency department patient visit DO Micah Apple Work Phone: [facility] Start: 11-12-2021 End: 11-12-2021 Patient encounter procedure DO Micah Link Work Phone: [facility] [address] Start: 10-28-2021 End: 10-28-2021 Emergency department patient visit DO Micah Link Work Phone: [facility] Start: 10-27-2021 End: 10-28-2021 Emergency department patient visit DO Micah Link Work Phone: [facility] Start: 10-26-2021 End: 10-26-2021 Patient encounter procedure Micah Rivera Link [facility] Start: 09-18-2021 Registered Recurring DO Micah L ink Work Phone: [facility] [address] Start: 09-09-2021 End: 09-09-2021 Emergency department patient visit DO Micah Link Work Phone: [facility] Start: 08-03-2021 End: 08-03-2021 Patient encounter procedure DO Micah Link Work Phone: [facility] COVID SWAB Procedures Date Procedure Procedure [...] Date Care Activity Detail Author Start: 03-25-2022 [facility] Work Phone: Start: 03-22-2022 Hospital admission [facility] Work Phone: Start: 03-04-2022 Influenza vaccination Flu vaccine (#1) [facility] Start: 10-27-2021 Computed tomography of abdomen and pelvis with contrast CT abdomen pelvis w con [facility] Start: 02-20-2021 COVID-19 Vaccine (2 - Booster for Oscar series) COVID-19 Vaccine (2 - Booster for Oscar series) [facility] Start: 2013 Hepatitis C screening Hepatitis C screen [facility] Start: 2010 HIV screening HIV screen [facility] Start: 2007 Depression Screen Depression Screen [facility] Start: 2006 DTaP/Tdap/Td vaccine (6 - Tdap) DTaP/Tdap/Td vaccine (6 - Tdap) [facility] Start: 2001 Pneumococcal 0-64 years Vaccine (1 - PCV) Pneumococcal 0-64 years Vaccine (1 - PCV) [facility] Start: 01-28-1996 Varicella vaccine (1 of 2 - 2-dose childhood series) Varicella vaccine (1 of 2 - 2-dose childhood series) [facility] Bacterial cytolethal distending toxin cdt gene [Presence] in Unspecified specimen by MAKI with probe detection [facility] Work Phone: Patient Education [facility] Work Phone: Patient referral [facility] Work Phone: Immunizations Immunization Date Immunization Notes Care Provider Fa cility 04-17-2023 influenza virus vaccine, unspecified formulation Micah Link [facility] Comment on above: Result Comment: Pt r ecieved at a Health Fair during work 12-26-2020 SARS-CoV-2 (COVID-19 ) Ad26 vaccine, recombinant Micah Link [facility] 11-19-2000 DTaP, unspecified formulation Micah Link [facility] 11-19-2000 measles, mumps and rubella virus vaccine Micah Link [facility] 11-19-2000 poliovirus vaccine, unspecified formulation Micah Link [facility] 05-20-1996 measles, mumps and rubella virus vaccine Micah Link [facility] 02-13-1996 Hib, unspecified formulation Micah Link [facility] 1995 hepatitis B vaccine, pediatric or pediatric/adolescent dosage Micah Link [facility] 1995 Hib, unspecified formulation Micah Link [facility] 1995 Hib, unspecified formulation Micah Link [facility] 1995 hepatitis B vaccine, pediatric or pediatric/adolescent dosage Micah Link [facility] 1995 hepatitis B vaccine, pediatric or pediatric/adolescent dosage Micah Link [facility] Payers Date Payer Category Payer Unknown [id number] 2. [id number] 2023 Unknown 2022 Self-pay [id number] 2022 Unknown [id number] 1995 Unknown [id number] 2.16.8 [id number] 1995 Unknown [id number] 2.16.8 [id number] 1995 Unknown [id number] 2.16.8 [id number] 1995 Unknown [id number] 2.16.8 [id number] 1995 Unknown [id number] 2.16.8 [id number] 1995 Unknown [id number] 2.16. [id number] 1995 Unknown [id number] 2.16. [id number] 1995 Unknown [id number] 2.16 [id number] 1995 Unknown [id number] 2.16 [id number] 1995 Unknown [id number] 2.16 [id number] 1995 Unknown [id number] 2.16 [id number] 1995 Unknown [id number] 2.16 [id number] 1995 Unknown [id number] 2.16 [id number] 1995 Unknown [id number] 2.16 [id number] 1995 Unknown [id number] 2.16 [id number] 1938 Unknown [id number] 2.16.8 [id number] Medicaid [id number] 2. [id number] Unknown [id number] Unknown [id number] 2.16.8 [id number] Social History Date Type Detail Facility Tobacco Cigarettes, 10 p er day. Started age 15.0 Years. Ready to change: Yes. Household tobacco concerns: No. [facility] Comment on above: denies Sex Assigned At Male [facility] Start: 10-28-2021 End: 03-23-2022 Tobacco smoking status NHIS Smoker (finding) [facility] Start: 1995 Sex Assigned At Male [facility] Start: 01-07-2022 Tobacco smoking stat us MTIS Never smoked tobacco (finding) [facility] Start: 08-04-2009 Tobacco smoking stat [facility] Smokes tobacco daily [employer] Phone: Start: 08-04-2009 History of tobacco use Cigarette Smo ker [employer] Phone: Start: 03-13-2022 Cigarettes smoked current (pack per day) - Reported 0.5 [employer] Phone: Start: 03-13-2022 Tobacco use and exposure Smokeless tobacco non-user [employer] Phone: Start: 03-13-2022 Alcohol intake Ex-drinker (finding) [employer] Phone: Start: 01-25-2022 History SDOH Alcohol Comment February 07, 2022 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 Work Phone: Mental Status Date Assessment Result Facility 03-25-2022 Cognitive function Cognitive Sta tus Patient at [facility] Work Phone: Clinical Notes 03-23-2022 to 09-30-2023 Note Date & Type Note Facility 09-30-2023 Hospital Discharg e instructions Patient Education 09/30/2023 09:06:43 General Anesthesia, Adult, Care After General Anesthesia, Adult, Care After The following information offers guidance on how to care for yourself after your procedure. Your health care provider may also give you more specific instructions. If you have problems or questions, contact your health care provider. What can I expect after the procedure? After the procedure, it is common for people to: Have pain or discomfort at the IV site. Have nausea or vomiting. Have a sore throat or hoarseness. Have trouble concentrating. Feel cold or chills. Feel weak, sleepy, or tired (fatigue). Have soreness and body aches. These can affect parts of the body that were not involved in surgery. Follow these instructions at home: For the time period you were told by your health care provider: Rest. Do not participate in activities where you could fall or become injured. Do not drive or use machinery. Do not drink alcohol. Do not take sleeping pills or medicines that cause drowsiness. Do not make important decisions or sign legal documents. Do not take care of children on your own. General instructions Drink enough fluid to keep your urine pale yellow. If you have sleep apnea, surgery and certain medicines can increase your risk for breathing problems. Follow instructions from your health care provider about wearing your sleep device: ?Anytime you are sleeping, including during daytime naps. ?While taking prescription pain medicines, sleeping medicines, or medicines that make you drowsy. Return to your normal activities as told by your health care provider. Ask your health care provider what activities are safe for you. Take dtdk-ylt-hltbkio and prescription medicines only as told by your health care provider. Do not use any products that contain nicotine or tobacco. These products include cigarettes, chewing tobacco, and vaping devices, such as e-cigarettes. These can delay incision healing after surgery. If you need help quitting, ask your health care provider. Contact a health care provider if: You have nausea or vomiting that does not get better with medicine. You vomit every time you eat or drink. You have pain that does not get better with medicine. You cannot urinate or have bloody urine. You develop a skin rash. You have a fever. Get help right away if: You have trouble breathing. You have chest pain. You vomit blood. These symptoms may be an emergency. Get help right away. Call 911. Do not wait to see if the symptoms will go away. Do not drive yourself to the hospital. Summary After the procedure, it is common to have a sore throat, hoarseness, nausea, vomiting, or to feel weak, sleepy, or fatigue. For the time period you were told by your health care provider, do not drive or use machinery. Get help right away if you have difficulty breathing, have chest pain, or vomit blood. These symptoms may be an emergency. This information is not intended to replace advice given to you by your health care provider. Make sure you discuss any questions you have with your health care provider. Document Revised: 10/18/2022 Document Reviewed: 10/18/2022 [employer] Patient Education 2022 Partnered. Follow Up Care 09/25/2023 08:33:29 With:Micah Apple DO, FAM Address: [address] [place] [address]- When:4 weeks Comments:4 WEEKS FOLLOWUP - recheck after surgery [facility] 08-21-2023 Hospital Discharg e instructions Patient Education 08/21/2023 17:11:13 Acute Back Pain, Adult Acute Back Pain, Adult Acute back pain is sudden and usually short-lived. It is often caused by an injury to the muscles and tissues in the back. The injury may result from: A muscle, tendon, or ligament getting overstretched or torn. Ligaments are tissues that connect bones to each other. Lifting something improperly can cause a back strain. Wear and tear (degeneration) of the spinal disks. Spinal disks are circular tissue that provide cushioning between the bones of the spine (vertebrae). Twisting motions, such as while playing sports or doing yard work. A hit to the back. Arthritis. You may have a physical exam, lab tests, and imaging tests to find the cause of your pain. Acute back pain usually goes away with rest and home care. Follow these instructions at home: Managing pain, stiffness, and swelling Take yyia-ffv-youawgf and prescription medicines only as told by your health care provider. Treatment may include medicines for pain and inflammation that are taken by mouth or applied to the skin, or muscle relaxants. Your health care provider may recommend applying ice during the first 24 48 hours after your pain starts. To do this: ?Put ice in a plastic bag. ?Place a towel between your skin and the bag. ?Leave the ice on for 20 minutes, 2 3 times a day. ?Remove the ice if your skin turns bright red. This is very important. If you cannot feel pain, heat, or cold, you have a greater risk of damage to the area. If directed, apply heat to the affected area as often as told by your health care provider. Use the heat source that your health care provider recommends, such as a moist heat pack or a heating pad. ?Place a towel between your skin and the heat source. ?Leave the heat on for 20 30 minutes. ?Remove the heat if your skin turns bright red. This is especially important if you are unable to feel pain, heat, or cold. You have a greater risk of getting burned. Activity Do not stay in bed. Staying in bed for more than 1 2 days can delay your recovery. Sit up and stand up straight. Avoid leaning forward when you sit or hunching over when you stand. ?If you work at a desk, sit close to it so you do not need to lean over. Keep your chin tucked in. Keep your neck drawn back, and keep your elbows bent at a 90-degree angle (right angle). ?Sit high and close to the steering wheel when you drive. Add lower back (lumbar) support to your car seat, if needed. Take short walks on even surfaces as soon as you are able. Try to increase the length of time you walk each day. Do not sit, drive, or licensed veterinary technician one place for more than 30 minutes at a time. Sitting or standing for long periods of time can put stress on your back. Do not drive or use heavy machinery while taking prescription pain medicine. Use proper lifting techniques. When you bend and lift, use positions that put less stress on your back: ?Bend your knees. ?Keep the load close to your body. ?Avoid twisting. Exercise regularly as told by your health care provider. Exercising helps your back heal faster and helps prevent back injuries by keeping muscles strong and flexible. Work with a physical therapist to make a safe exercise program, as recommended by your health care provider. Do any exercises as told by your physical therapist. Lifestyle Maintain a healthy weight. Extra weight puts stress on your back and makes it difficult to have good posture. Avoid activities or situations that make you feel anxious or stressed. Stress and anxiety increase muscle tension and can make back pain worse. Learn ways to manage anxiety and stress, such as through exercise. General instructions Sleep on a firm mattress in a comfortable position. Try lying on your side with your knees slightly bent. If you lie on your back, put a pillow under your knees. Keep your head and neck in a straight line with your spine (neutral position) when using electronic equipment like smartphones or pads. To do this: ?Raise your smartphone or pad to look at it instead of bending your head or neck to look down. ?Put the smartphone or pad at the level of your face while looking at the screen. Follow your treatment plan as told by your health care provider. This may include: ?Cognitive or behavioral therapy. ?Acupuncture or massage therapy. ?Meditation or yoga. Contact a health care provider if: You have pain that is not relieved with rest or medicine. You have increasing pain going down into your legs or buttocks. Your pain does not improve after 2 weeks. You have pain at night. You lose weight without trying. You have a fever or chills. You develop nausea or vomiting. You develop abdominal pain. Get help right away if: You develop new bowel or bladder control problems. You have unusual weakness or numbness in your arms or legs. You feel faint. These symptoms may represent a serious problem that is an emergency. Do not wait to see if the symptoms will go away. Get medical help right away. Call your local emergency services (911 in the [place] Do not drive yourself to the hospital. Summary Acute back pain is sudden and usually short-lived. Use proper lifting techniques. When you bend and lift, use positions that put less stress on your back. Take vmwx-lbi-rgpvvhg and prescription medicines only as told by your health care provider, and apply heat or ice as told. This information is not intended to replace advice given to you by your health care provider. Make sure you discuss any questions you have with your health care provider. Document Revised: 10/12/2021 Document Reviewed: 10/12/2021 [employer] Patient Education 2022 Partnered. Follow Up Care 08/06/2023 12:30:21 With:Micah Apple DO, FAM Address: [address] [place] [address]- When: Unknown Comments:If needed [facility] [place] 05-16-2023 Evaluation note Encounter Date Diagnosis Assessment [...] no improvement in 2 to 3 days [employer] Other 03-11-2023 Evaluation note* Encounter Date Diagnosis [...] it is so important to follow up [employer] Other 10-31-2022 Evaluation note* Encounter Date Diagnosis [...] care provider if no improvement of symptoms [employer] Other 10-19-2022 Hospital Discharge instructions* Discharge Instructions* [...] sent through Care Everywhere. * Back Pain (Telugu) * Vertigo (Telugu) [facility] [employer] Work Phone: 1(670) 770-278408-22-2022 Discharge summary Author Denzel Fonseca [facility] March 25, 2022 1:03pm Note Date/Time March 25, 2022 1: 00pm [facility] [address] [place] [address] Discharge Summary Signed Patient: Rashad Vargas MR#: [id number] 2142 : 1995 Acct:[id number] Age/Sex: 27 / M Adm Date: 2 Loc: Room: [address] [place] [address]: Saran Kaba MD Copies to: MD Micah Mitchell DO Denzel Fonseca MD~ Providers Date of Discharge: 03/25/22 Discharging Provider: Denzel Fonseca Primary Care Provider: Micah Apple Discharge Diagnosis (1) Depression: Final Diagnosis Final [...] had a plan to drive to the [email or web address] and jump from it. He alerted hiscoworkers who called for him to come in immediately. He has recently had increased depression with decreased motivation, decreased sleep. He had been seeing his PCP Dr. Apple for anxiety up until about a year [...] No activity restrictions. Instructions: Depression, Adult (DC), [facility] [place] Instructions Prescriptions: New venlafaxine 75 mg Capsule,Extended Release 24hr 75 mg PO DAILY 30 Days Qty: 30 0RF trazodone 50 mg Tablet 50 mg PO QHS PRN (Reason: Insomnia) Qty: 20 0RF nicotine 21 mg/24 hr Patch 24 Hour 1 ea transdermal DAILY Qty: 30 0RF Follow Up: [facility] Counseling Hotline [Outside] [facility] [Outside] Documented By: Denzel Fonseca MD 03/25/22 1250 Signed By: <Electronically signed by Denzel Fonseca MD> 03/25/22 1304 [facility] Work Phone: 1(425) 136-309708-21-2022 Progress note Author Alcon cordero [facility] March 24, 2022 10:11am Note Date/Time March 24, 2022 10 :11am [facility] [address] [place] [address] Psychiatry Progress Note Signed Patient: Rashad Vargas MR#: [id number] 2142 : 1995 Acct:[id number] Age/Sex: 27 / M Adm Date: 2 Loc: Room: [address] [place] [address] Type : ADM IN Attending Dr: Saran [...] signed by Alcon Kaba MD> 03/24/22 1011 [facility] Work Phone: 1(336) 744-963108-20-2022 History and physical note Author Alcon cordero [facility] March 23, 2022 8:58am Note Date/Time March 23, 2022 7: 44am [facility] [address] [place] [address] Psychiatry H&P Signed Patient: Rashad Vargas MR#: [id number] 2142 : 1995 Acct:[id number] Age/Sex: 27 / M Adm Date: 2 Loc: Room: [address] [place] [address] Type: ADM IN Attending Dr: Saran Kaba [...] had a plan to drive to the [employer] [place] and [place] from it. He alerted hiscoworkers who called for him to come in immediately. He has recently had increased depression with decreased motivation, decreased sleep. He had been seeing his PCP Dr. Apple for anxiety up until about a year [...] Medical History (Updated 03/23/22 @ 07:33 by Arnel Rondon Jr, MD) Anxiety Herniated disc Pancreatitis [...] Appearance Clear Urine pH 6.5 Ur Specific Odd 1.033 H Urine Protein Trace H Urine [...] signed by Alcon Kaba MD> 03/23/22 0858 [facility] Work Phone: Chief complaint+Reason for visit Narrative* Chief Complaint left hip pain mental evaluation Reason for Visit Depression [facility] Work Phone: Discharge summary Author Denzel Fonseca [facility] March 25, 2022 1:03pm Note Date/Time March 25, 2022 1: 00pm [facility] [address] [place] [address] Discharge Summary Signed Patient: Rashad Vargas MR#: [id number] 2142 : 1995 Acct:[id number] Age/Sex: 27 / M Adm Date: 2 Loc: Room: [address] [place] [address]: Saran Kaba MD Copies to: MD Micah Mitchell MD~ Providers Date of Discharge: 03/25/22 Discharging Provider: Denzel Fonseca Primary Care Provider: Micah Apple Discharge Diagnosis (1) Depression: Final Diagnosis Final [...] had a plan to drive to the [employer] [place] and [place] from it. He alerted hiscoworkers who called for him to come in immediately. He has recently had increased depression with decreased motivation, decreased sleep. He had been seeing his PCP Dr. Apple for anxiety up until about a year [...] No activity restrictions. Instructions: Depression, Adult (DC), [facility] Behavioral [facility] [place] Instructions Prescriptions: New venlafaxine 75 mg Capsule,Extended Release 24hr 75 mg PO DAILY 30 Days Qty: 30 0RF trazodone 50 mg Tablet 50 mg PO QHS PRN (Reason: Insomnia) Qty: 20 0RF nicotine 21 mg/24 hr Patch 24 Hour 1 ea transdermal DAILY Qty: 30 0RF Follow Up: [facility] [Outside] [facility] [Outside] Documented By: Denzel Fonseca MD 03/25/22 1259 Signed By: <Electronically signed by Denzel Fonseca MD> 03/25/22 1303 [facility] Work Phone: Evaluation + Plan note No data available for this section [facility] Future Appointments Appointment Date:08/25/2023 08:00:00 AM Scheduled Provider: Location:[facility] Appointment Type: Nurse Visit Future Scheduled Tests Laboratory* HgbA1c 08/21/23 * TSH With T4fr Reflex 08/21/23 * CBC w/ Auto Diff 08/21/23 * Comprehensive Metabolic Panel 08/21/23 * Lipid Panel 08/21/23 [facility] Evaluation + Plan note Future Appointments Appointment Date:10/30/2023 02:40:00 PM Scheduled Provider:Micah Apple DO Location:[facility] Appointment Type:FM Open [facility] Evaluation noteNo assessment information available [facility] Work Phone: Evaluation noteNo InformationNort Mag[place] Other evaluation note* Diagnosis Onset Date Resolution Status Depression acute [facility] Work Phone: Evaluation note* Diagnosis Acute exacerbation of chronic low back pain- Primary Benign paroxysmal positional vertigo, unspecified laterality documented in this encounter [facility] [employer] [facility] Work Phone: History and physical note Author Alcon cordero [facility] March 23, 2022 8:58am Note Date/Time March 23, 2022 7: 44am [facility] [address] [place] [address] Psychiatry H&P Signed Patient: Rashad Vargas MR#: [id number] 2142 : 1995 Acct:[id number] Age/Sex: 27 / M Adm Date: 2 Loc: Room: [address] [place] [address] Type: ADM IN Attending Dr: Saran Kaba [...] had a plan to drive to the [employer] [place] and [place] from [place]. He alerted hiscoworkers who called for him to come in immediately. He has recently had increased depression with decreased motivation, decreased sleep. He had been seeing his PCP Dr. Apple for anxiety up until about a year [...] Medical History (Updated 03/23/22 @ 07:33 by Arnel Rondon Jr, MD) Anxiety Herniated disc Pancreatitis [...] Appearance Clear Urine pH 6.5 Ur Specific Odd 1.033 H Urine Protein Trace H Urine [...] <Electronically signed by Alcon Kaba MD> 03/23/22 2343 [facility] Work Phone: History general Narrative - Reported* Type Description Date Medical History Esophageal reflux Hospitalization History pancreatitis [facility] Other History general Narrative - Reported* Type Description Date Medical History Esophageal reflux Medical History herniated disc Hospitalization History pancreatitis [facility] Other Hiszlqk general Narrative - Reported* Type Description Date Medical History Esophageal reflux Medical History herniated disc Medical History MICHOACANO Hospitalization History pancreatitis [facility] Other Hospital Discharge instructions No data available for this section [facility] Work Phone: [facility] Work Phone: Hospital Discharge instructions Additional Instructions Your pain may be related to the herniated disk seen on your MRI. I think you should make another appointment with Dr Robledo or with the [facility] Work Phone: Hospital Discharge instructions Additional Instructions Regular diet. No activity restrictions.[facility] Work Phone: Progress note Author Alcon cordero [facility] March 24, 2022 10:11am Note Date/Time March 24, 2022 10 :11am [facility] [address] [place] [address] Psychiatry Progress Note Signed Patient: Rashad Vargas MR#: [id number] 2142 : 1995 Acct:[id number] Age/Sex: 27 / M Adm Date: 2 Loc: Room: 8C1134-9 Type : ADM IN Attending Dr: Saran [...] signed by Alcon Kaba MD> 03/24/22 1011 [facility] Work Phone: Progress note No data available for this section [facility] [place] [facility] Ref[facility] [employer] Other Summary Purpose Family History No Family History Records FoundNo Family History Records FoundNo Family History Records Found No data available for this section No data available for this section No data available for this section No data available for this section No Family History Records FoundNo Family History Records FoundNo Family History Records Found Advance Directives No Advanced Directives Records Found Advance Directive Response Recorded Date/ Time Advance [...] section and content) DATE CREATED AUTHOR 06/02/2021 [address] DATE CREATED AUTHOR AUTHOR'S ORGANIZ ATION 05/05/2022 [facility] [place] DATE CREATED AUTHOR AUTHOR'S ORGANIZ ATION 05/27/2022 [facility] DATE CREATED AUTHOR AUTHOR'S ORGANIZ ATION 10/29/2023 [facility] DATE CREATED AUTHOR AUTHOR'S ORGANIZ ATION 12/11/2023 [facility] DATE CREATED AUTHOR AUTHOR'S ORGANIZ ATION 12/19/2023 [facility] Care Teams (unrecognized sec tion and content) Team Status: Active Member Role Status Dates Micah Apple , Primary Care Provider Active Jennifer Marrero NP Attending Provider Active Team Status: Inactive Member Role Status Dates Micah Apple , Primary Care Provider Active Yasmany Parson MD Attending Provider Active Team Status: Inactive Member Role Status Dates Micah Apple , DO Primary Care Provider Active Steve Ro , DO Emergency Provider Active Team Status: Inactive Member Role Status Dates Micah Apple , DO Primary Care Provider Active Sandra Galicia APRN Emergency Provider Active Team Status: Active Member Role Status Dates Micah Apple , DO Primary Care Provider Active Team Status: Inactive Member Role Status Dates Micah Apple , DO Primary Care Provider, Attending Kofi crabtree Active Team Status: Inactive Member Role Status Dates Micah Apple , DO Primary Care Provider Active Arnel Rondon Jr, MD Emergency Provider Active Team Status: Inactive Member Role Status Dates Micah Apple , DO Primary Care Provider Active Dung Todd MD Emergency Provider Active Saran Kaba MD Admit Provider, Attending Sj marlow Active Assignment Editor Relationship Specialty [place] [id number] PCP - General 01/25/22 Goals (unrecognized section and content) Goals may be documented in a n alternate section Reason for Visit (unrecogniz ed section and content) Reason Comments Back Pain Chronic back pain [...] BE BASED ON THE PRIMARY CLINICAL RECORDS. [employer] provides no warranty or guarantee of the accuracy or completeness of information in this document.
[2024-01-21] MEDS: ONDANSETRON PF 4 MG/2 ML VIAL IV ×2 (16:52→23:43)
[2024-01-21] MEDS: HYDROMORPHONE HCL 1 MG/ML CARTRIDGE IV (16:52)
[2024-01-21] MEDS: 0.9 % SODIUM CHLORIDE 1,000 ML 1000 ML IV (16:52)
[2024-01-21 16:59] LABS: Hemoglobin 17.1 g/dL (14.0-18.0); Mean Corpuscular HGB Conc 33.5 g/dL (29.9-35.2); Mean Corpuscular Hemoglobin 28.6 pg (25.9-34.0); Mean Corpuscular Volume 85.4 fL (80.0-94.0); Mean Platelet Volume 9.9 fL (9.5-13.5); Platelet Count 360 10^3/uL (150-450); Red Blood Count 5.97 10^6/uL (4.70-6.10); Red Cell Distribution Width 11.9 % (11.0-15.0); White Blood Count 16.4 10^3/uL (4.0-11.0)
[2024-01-21 17:15] LABS: Alanine Aminotransferase 59 U/L (16-63); Albumin Globulin Ratio 1.1; Albumin Level 4.4 g/dL (3.4-5.0); Alkaline Phosphatase 52 U/L (46-116); Anion Gap 15.5; Aspartate Amino Transferase 23 U/L (15-37); BUN Creatinine Ratio 21.1; Bilirubin Total 0.4 mg/dL (0.2-1.0); Calcium 9.6 mg/dL (8.5-10.1); Carbon Dioxide 26.3 mmol/L (21.0-32.0); Chloride 101 mmol/L (98-107); Estimated GFR (African America >60 (>=60); Estimated GFR (Non-African Ame >60 (>=60); Globulin 4.1 g/dL; Glucose 119 mg/dL (74-106); Potassium 3.8 mmol/L (3.5-5.1); Sodium 139 mmol/L (136-145); Total Protein 8.5 g/dL (6.4-8.2)
--- NOTE | 2024-01-21 17:15 | CT_ITS ---
[address] [address] Patient Name: HARRY KOENIG MRN: [id number] date: 1995 Sex: M Assigned Patient Location: ER Current Patient Location: ER Accession/Order Number: [id number] Exam Date: 01/21/2024 17:05 Report Date: 01/21/2024 18:13 At the request of: KAYLAN URIBE Procedure: CT abdomen pelvis w con CT ABDOMEN/PELVIS WITH IV CONTRAST. INDICATION: Abdominal pain. COMPARISON: There are no other studies available for comparison. TECHNIQUE: Contiguous axial images were obtained from the lung bases to the pelvic floor following the intravenous administration of contrast. Coronal and sagittal reformations are provided. FINDINGS: LOWER LUNGS: Clear. LIVER/BILIARY TREE: No mass. No intrahepatic ductal dilatation. Hepatic steatosis. GALLBLADDER: No significant gallbladder wall thickening. No radiopaque stone. CBD: Normal CBD. SPLEEN: Normal in size. PANCREAS: Edematous pancreas with peripancreatic stranding and minimal free fluid. There is homogeneous enhancement of the pancreas. There is no pancreatic ductal dilatation. No organized peripancreatic fluid collection. ADRENALS: Normal. KIDNEYS: No hydronephrosis. No radiopaque calculus. STOMACH AND BOWEL: Stomach is unremarkable. No dilated bowel loops. No bowel wall thickening. APPENDIX: Normal appendix. PERITONEAL CAVITY: No fluid. No fat stranding. ABDOMINAL WALL: No subcutaneous stranding. No subcutaneous fluid collection. LYMPH NODES: No mesenteric or retroperitoneal lymphadenopathy by CT criteria. ABDOMINAL AORTA: No aneurysm. PELVIS: No acute abnormality. MUSCULOSKELETAL: No acute osseous abnormality. CT/CT abdomen pelvis w con IMPRESSION: 1. Acute pancreatitis without evidence of necrosis or organized collection. 2. Hepatic steatosis. Electronically authenticated by: XENIA BATES Date: 01/21/2024 18:13
[2024-01-21 17:18] LABS: Lactate/Lactic Acid 1.7 mmol/L (0.4-2.0)
[2024-01-21 17:30] LABS: Eosinophils Absolute Manual 0.49 10^3/uL (0.00-0.70); Monocytes Absolute Manual 1.64 10^3/uL (0.30-0.80); Segmented Neut Absolute Manual 10.66 10^3/uL (1.4-6.5)
[2024-01-21 17:55] LABS: Amylase 1956 U/L (25-115)
[2024-01-21] MEDS: FENTANYL CITRATE/PF 100 MCG/2 ML VIAL IV (17:55)
[2024-01-21] MEDS: FAMOTIDINE/PF 20 MG/2 ML VIAL IV (17:56)
[2024-01-21 18:29] LABS: Bilirubin Urine NEGATIVE (NEGATIVE); Blood Urine TRACE-I (NEGATIVE); Clarity Urine CLEAR (CLEAR); Color Urine LT. YELLOW (YELLOW); Glucose Urine UA 100 mg/dL (NEGATIVE); Ketones Urine NEGATIVE (NEGATIVE); Leukocyte Esterase Urine NEGATIVE (NEGATIVE); Nitrite Urine NEGATIVE (NEGATIVE); Protein Urine 30 mg/dL (NEG/TRACE); Urobilinogen Urine 0.2 EU/dL (0.2-1.0)
[2024-01-21 18:30] LABS: Urine Microscopic Indicated YES
[2024-01-21 18:35] LABS: Bacteria Urine NONE SEEN #/HPF (NONE SEEN); Crystals Seen? None Seen #/HPF (None Seen); Mucus Urine NONE SEEN (NONE SEEN); RBC Urine 0-2 #/HPF (0-2); Squamous Epithelial Cell Urine RARE #/LPF (NONE/RARE); WBC Urine NONE SEEN #/HPF (NONE SEEN)
[2024-01-21 18:36] LABS: Cast Seen? NONE SEEN #/LPF (NONE SEEN); Urine Culture Indicated NO
[2024-01-21] MEDS: 0.9 % SODIUM CHLORIDE 1,000 ML 500 ML IV (19:11)
[2024-01-21] MEDS: MORPHINE SULFATE 4 MG/ML VIAL IV (19:11)
[2024-01-21] MEDS: KETOROLAC TROMETHAMINE 30 MG/ML VIAL IVP (20:05)
[2024-01-21] MEDS: 0.9 % SODIUM CHLORIDE 1,000 ML 150 ML IV (20:08)
[2024-01-21] MEDS: METOCLOPRAMIDE HCL 10 MG/2 ML VIAL IVP (21:24)
[2024-01-21] MEDS: HYDROMORPHONE HCL 1 MG/ML CARTRIDGE IVP (21:24)
[2024-01-21] MEDS: VENLAFAXINE HCL ER 75 MG CAPSULE PO (21:24)
[2024-01-21] MEDS: NICOTINE 14 MG PATCH.TD24 TD (23:07)
[2024-01-21 23:51] LABS: Cannabinoid Screen Urine NEGATIVE (NEGATIVE); Cocaine Screen Urine NEGATIVE (NEGATIVE); Phencyclidine Screen Urine NEGATIVE (NEGATIVE)
[2024-01-21 23:52] LABS: Amphetamine Screen Urine NEGATIVE (NEGATIVE); Barbiturates Screen Urine NEGATIVE (NEGATIVE); Benzodiazepines Screen Urine NEGATIVE (NEGATIVE); Buprenorphine Screen Urine NEGATIVE (NEGATIVE); Methadone Screen Urine NEGATIVE (NEGATIVE); Methamphetamines Screen Urine NEGATIVE (NEGATIVE); Opiate Screen Urine POSITIVE (NEGATIVE); Oxycodone Screen Urine NEGATIVE (NEGATIVE); Tricyclic Antidepressant Urine NEGATIVE (NEGATIVE)
[2024-01-22] VITALS (19 sets, daily range): BP systolic 155–156; BP diastolic 80–90; PULSE 89–112; TEMP 36.6–36.9; O2SAT 92–98
[2024-01-22] MEDS: 0.9 % SODIUM CHLORIDE 1,000 ML 150 ML IV (01:49)
[2024-01-22] MEDS: METOCLOPRAMIDE HCL 10 MG/2 ML VIAL IVP ×2 (01:49→09:26)
[2024-01-22] MEDS: HYDROMORPHONE HCL 1 MG/ML CARTRIDGE IVP ×3 (01:49→09:48)
[2024-01-22 05:24] LABS: Basophils Absolute Auto 0.1 10^3/uL (0.0-0.1); Basophils Percent Auto 0.3 % (0.2-2.0); Hematocrit 52.8 % (42.0-54.0); Hemoglobin 17.3 g/dL (14.0-18.0); Immature Granulocytes Pct Auto 0.5 % (0.0-0.5); Lymphocytes Absolute Auto 1.2 10^3/uL (1.2-3.8); Lymphocytes Percent Auto 5.5 % (20.5-60.0); Mean Corpuscular HGB Conc 32.8 g/dL (29.9-35.2); Mean Corpuscular Hemoglobin 28.6 pg (25.9-34.0); Mean Corpuscular Volume 87.3 fL (80.0-94.0); Mean Platelet Volume 10.1 fL (9.5-13.5); Monocytes Absolute Auto 1.7 10^3/uL (0.3-0.8); Monocytes Percent Auto 7.9 % (1.7-12.0); Neutrophils Percent Auto 85.8 % (43.0-75.0); Platelet Count 331 10^3/uL (150-450); Red Blood Count 6.05 10^6/uL (4.70-6.10); Red Cell Distribution Width 12.2 % (11.0-15.0)
[2024-01-22 05:46] LABS: Alanine Aminotransferase 58 U/L (16-63); Albumin Globulin Ratio 1.2; Albumin Level 4.2 g/dL (3.4-5.0); Alkaline Phosphatase 47 U/L (46-116); Anion Gap 13.1; Aspartate Amino Transferase 28 U/L (15-37); BUN Creatinine Ratio 18.8; Bilirubin Total 0.8 mg/dL (0.2-1.0); Calcium 9.2 mg/dL (8.5-10.1); Chloride 104 mmol/L (98-107); Estimated GFR (African America >60 (>=60); Estimated GFR (Non-African Ame >60 (>=60); Globulin 3.5 g/dL; Glucose 142 mg/dL (74-106); Potassium 4.1 mmol/L (3.5-5.1); Sodium 138 mmol/L (136-145); Total Protein 7.7 g/dL (6.4-8.2)
[2024-01-22 06:01] LABS: Amylase 1643 U/L (25-115)
--- NOTE | 2024-01-22 08:16 | P.HP_ITS ---
HPI H&P: HPI History of Present Illness Chief complaint: Abdominal Pain Acute Pancreatitis Narrative: Patient is a 28 y.o white male with past medical history of depression treated with Effexor, Had episode of alcohol related Pancreatitis many years ago, patient denies alcohol. Patient was in his normal state of health until yesterday when he developed diffuse abdominal pain, RUQ. No vomiting, diarrhea, but lack of appetite. He presented to the ER as his abdominal pain because he could not manage at home. He denies fevers or chills, recent travel or sick contacts. ER findings: CT: hepatic steatosis, Acute pancreatitis without abscess or necrosis, WBC's 16, lipase 3965, Amylase 1643, Normal liver function, Patient has been on IVF, NS @150, getting zofran, dilaudid and Fentanyl for pain control. Patient is NPO. This morning on admission exam patient notes still with pain in his abdomen, is actively grimacing on exam. He states he has passed gas, no BM. He had one episode of vomiting. No recent alcohol use, Viral illness, patient still reports a GB and appendix Opioid HPI Opioid Management Most Recent Pain and Opioid Data: Last Pain Scale 4 01/22/24 11:22 Last Pain Assessment 01/22/24 11:21 Last MAR Pain Assessment 01/22/24 11:22 Last ORT Total Score 5 01/21/24 20:28 Last ORT Risk Category Moderate Risk 01/21/24 20:28 Ur Phencyclidine Scrn Negative (NEGATIVE) 01/21/24 18:19 Review of Systems ROS Narrative ROS: a complete review of systems were reviewed with patient and are positive as below or listed in History of Chief Complaint. General: no fever, chills, night sweats Head: no headache, trauma, visual changes, nausea or vomiting Skin: no reported rashes, itching or sores Eyes: no blurriness of vision Ears: no reported hearing loss, vertigo, earache, or tinnitus Throat: no sore throat, hoarseness, swelling of neck, or tongue pain Heart: no chest pain Lungs: no shortness of breath or cough GI: no diarrhea or vomiting/nausea, but abdominal pain Urinary: no urinary urgency, frequency or pain Neuro: no numbness or tingling HEM: no bleeding issues or bruising ENDO: no thyroid problems Psych: no anxiety but depression [facility] OF [facility] Medical History (Updated 01/22/24 @ 08:44 by Shonna Keating DO) 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) Depression ?F32.A - Depression, unspecified (ICD-10) Fatty liver ?K76.0 - Fatty (change of) liver, not elsewhere classified (ICD-10) Pancreatitis ?K85.90 - Acute pancreatitis without necrosis or infection, unspecified (ICD- 10) Family History Other Family history of cancer Family history of diabetes mellitus Family history of hypertension Social History Within the past year, how often did you have a drink containing alcohol: never Within the past year, how many standard drinks containing alcohol did you have on a typical day: 1 or 2 Within the past year, how often did you have six or more drinks on one occasion: never Total score: 0 Score interpretation: A score less than 4 is consistent with normal alcohol consumption. Do you use any of these nicotine containing products: vaping products Non-prescribed substance use: denies use Highest level of school completed/degree received: some college, no degree Are you now , , , , never or living with a partner: In a typical week, how many times do you talk on the telephone with family, friends, or neighbors: 3 or more times per week How often do you get together with friends or relatives: 3 or more times per week Do you belong to any clubs or organizations such as moravian groups unions, fraternal or athletic groups, or school groups: yes Little interest or pleasure in doing things: several days Feeling down, depressed, or hopeless: several days Feel stressed/tense/nervous/anxious/difficulty sleeping: rather much Do you think of yourself as: straight/heterosexual Gender Identity: male Meds Home Medications and Allergies Home Medications ?Medication ?Instructions ?Recorded ?Confirmed ?Type venlafaxine 75 mg capsule,extended 75 mg PO DAILY 01/21/24 01/21/24 History release 24 hr Allergies Allergy/AdvReac Type Severity Reaction Status Date / Time No Known Drug Allergies Allergy Verified 06/11/23 11:00 Exam Narrative Exam Narrative: General: Patient is alert, and oriented to person, place and time but appears in pain Skin: no visible rashes, or ulcers Head: atraumatic, acephalic Eyes: PERRLA, no nystagmus present, conjunctiva clear, no scleral icterus Ears: normal gross auditory acuity Heart: Normal rate and rhythm, no murmurs/rubs/gallops Lungs: no audible wheezes, crackles and normal breath sounds all lung gipson Abdomen: diminished audible bowel sounds, mild distension, Patient has rebound/guarding/ and rigidity, diffuse pain Musculoskeletal: no swelling bilateral lower extremities Neuro: CN II-X grossly intact Constitutional Vital Signs, click to edit/add: Last Vital Signs Temp 98.4 F 01/22/24 06:02 Pulse 112 H 01/22/24 07:47 Resp 16 01/22/24 06:02 BP 155/90 H 01/22/24 06:02 Pulse Ox 95 01/22/24 07:48 O2 Del Method Nasal Cannula 01/22/24 06:02 O2 Flow Rate 2 01/22/24 06:02 Results Labs Labs: Short CBC 01/21/24 01/22/24 Range/Units 16:45 04:28 WBC 16.4 H 21.0 H (4.0-11.0) 10^3/uL Hgb 17.1 17.3 (14.0-18.0) g/dL Hct 51.0 52.8 (42.0-54.0) % Plt Count 360 331 (150-450) 10^3/uL BMP 01/21/24 01/22/24 16:45 04:28 Sodium 139 138 Potassium 3.8 4.1 Chloride 101 104 Carbon Dioxide 26.3 25.0 BUN 20.0 H 18.0 Creatinine 0.95 0.96 Glucose 119 H 142 H Calcium 9.6 9.2 Liver Function 01/21/24 01/22/24 Range/Units 16:45 04:28 Total Bilirubin 0.4 0.8 (0.2-1.0) mg/dL AST 23 28 (15-37) U/L ALT 59 58 (16-63) U/L Alkaline Phosphatase 52 47 (46-116) U/L Albumin 4.4 4.2 (3.4-5.0) g/dL Urine 01/21/24 Range/Units 18:19 Urine Color Lt. yellow (YELLOW) Urine Clarity Clear (CLEAR) Urine pH 6.0 (5.0-9.0) Ur Specific [place] 1.020 (1.005-1.025) Urine Protein 30 A (NEG/TRACE) mg/dL Urine Glucose (UA) 100 A (NEGATIVE) mg/dL Assessment and Plan Assessment and Plan (1) Acute pancreatitis: Assessment and Plan: stop NS and start LR @200/hr, continue pain control with Dilaudid, continue Fentanyl. Check lipids, TSH and hemoglobin A1C. UA was negative but also check blood cultures. UDS negative, alcohol level not obtained in the ER so will check. Continue zofran. Normal liver enzymes but with significant elevation of WBC's, pain, and lipase 3965, I checked RUQ ultrasound given history of steatosis, concern for acute GB disease but nothing acute present on US. This was also noted on CT scan. Qualifiers: Acute pancreatitis complication: uninfected necrosis Pancreatitis type: unspecified pancreatitis type Qualified Code(s): K85.91 - Acute pancreatitis with uninfected necrosis, unspecified (2) SIRS (systemic inflammatory response syndrome): Assessment and Plan: elevated WBC's, Tachycardia, Currently afebrile, and initial lactate was negative. continue IVF. (3) Depression: Assessment and Plan: continue Effexor Qualifiers: Depression Type: unspecified Qualified Code(s): F32.A - Depression, unspecified (4) Fatty liver: Assessment and Plan: as seen on CT, check lipid panel Plan Patient is a full code Patient is changed to inpatient status today as patient still with symptoms and requiring IV pain control to control pain, and is NPO. Further work up also needed since elevated WBC's to exclude acute infectious process. Patient is expected to stay 1-2 more days for medically necessary hospital care.
--- NOTE | 2024-01-22 08:32 | US_ITS ---
The [address] [address] Patient Name: HARRY KOENIG MRN: [id number] date: 1995 Sex: M Assigned Patient Location: MS Current Patient Location: MS Accession/Order Number: [id number] Exam Date: 01/22/2024 09:45 Report Date: 01/22/2024 10:52 At the request of: NOVA BAUER Procedure: US right upper quadrant EXAMINATION: US right upper quadrant HISTORY: Pain, leukocytosis, pancreatitis COMPARISON: CT abdomen pelvis 01/21/2024 TECHNIQUE: Transabdominal evaluation of the right upper quadrant. FINDINGS: LIVER: Increased echogenicity suggestive of fatty infiltration. Color Doppler demonstrates patent hepatic veins. PORTAL VEIN: Duplex Doppler demonstrates normal hepatopetal flow pattern with flow velocity averaging 32 cm/s. GALLBLADDER: No visible gallstones, wall thickening, or pericholecystic free fluid. Negative sonographic Bragg's sign. BILIARY: No abnormal dilation or stones. Common bile duct diameter is within normal limits. PANCREASE: Not well seen due to overlying bowel gas, but overall edematous appearing. No abnormal duct dilation or appreciable fluid collection. KIDNEY: No hydronephrosis. No visible mass or stones. Size: US/US right upper quadrant IMPRESSION: 1. In correlation with yesterday's CT study, findings favor pancreatitis. 2. Unremarkable gallbladder. No gallstones or abnormal duct dilation. Electronically authenticated by: NILAM AYERS Date: 01/22/2024 10:52
[2024-01-22 08:44] LABS: Estimated Average Glucose 117 mg/dL; Glycohemoglobin A1C 5.7 % (4.5-6.2)
[2024-01-22 08:54] LABS: Chol HDL Ratio 5.2; Cholesterol 239 mg/dL (<=200); HDL Cholesterol 46 mg/dL (40-60); Triglycerides 320 mg/dL (<=150)
[2024-01-22] MEDS: LACTATED RINGER'S SOLUTION 1,000 ML 200 ML IV ×3 (09:25→19:56)
[2024-01-22] MEDS: KETOROLAC TROMETHAMINE 30 MG/ML VIAL IVP ×3 (09:26→21:14)
--- NOTE | 2024-01-22 10:57 | CM.NOTE ---
Rounds made with Dr. Keating. Dr. Keating discusses plan of care. Mr. Gargty verbalizes understanding.
[2024-01-22 11:49] LABS: Ethanol <3 mg/dL
--- NOTE | 2024-01-22 14:50 | PC.NURSE ---
Dr Keating came and spoke with patient about wanting to discharge. After speaking, patient as decided to stay overnight tonight. Dr Keating said to advance to clear liquids.
[2024-01-22] MEDS: VENLAFAXINE HCL ER 75 MG CAPSULE PO (21:14)
[2024-01-22] MEDS: NICOTINE 14 MG PATCH.TD24 TD (22:44)
[2024-01-23] VITALS (8 sets, daily range): BP systolic 145; BP diastolic 80; PULSE 93–112; TEMP 36.6; O2SAT 92–96
[2024-01-23] MEDS: LACTATED RINGER'S SOLUTION 1,000 ML 200 ML IV ×2 (00:41→05:16)
[2024-01-23] MEDS: ONDANSETRON PF 4 MG/2 ML VIAL IV ×2 (02:38→09:32)
[2024-01-23] MEDS: KETOROLAC TROMETHAMINE 30 MG/ML VIAL IVP ×2 (03:05→09:32)
[2024-01-23 05:30] LABS: Basophils Percent Auto 0.2 % (0.2-2.0); Eosinophils Absolute Auto 0.1 10^3/uL (0.0-0.7); Eosinophils Percent Auto 0.5 % (0.9-7.0); Hematocrit 43.6 % (42.0-54.0); Hemoglobin 14.6 g/dL (14.0-18.0); Immature Granulocytes Abs Auto 0.07 10^3/uL (0.00-0.03); Immature Granulocytes Pct Auto 0.5 % (0.0-0.5); Lymphocytes Percent Auto 6.4 % (20.5-60.0); Mean Corpuscular HGB Conc 33.5 g/dL (29.9-35.2); Mean Corpuscular Hemoglobin 29.1 pg (25.9-34.0); Mean Corpuscular Volume 86.9 fL (80.0-94.0); Mean Platelet Volume 10.3 fL (9.5-13.5); Monocytes Absolute Auto 1.1 10^3/uL (0.3-0.8); Monocytes Percent Auto 7.1 % (1.7-12.0); Neutrophils Absolute Auto 13.1 10^3/uL (1.4-6.5); Neutrophils Percent Auto 85.3 % (43.0-75.0); Platelet Count 245 10^3/uL (150-450); Red Blood Count 5.02 10^6/uL (4.70-6.10); Red Cell Distribution Width 12.4 % (11.0-15.0); White Blood Count 15.4 10^3/uL (4.0-11.0)
[2024-01-23 05:53] LABS: Alanine Aminotransferase 48 U/L (16-63); Albumin Globulin Ratio 0.9; Albumin Level 3.2 g/dL (3.4-5.0); Alkaline Phosphatase 39 U/L (46-116); Aspartate Amino Transferase 33 U/L (15-37); BUN Creatinine Ratio 13.3; Calcium 8.4 mg/dL (8.5-10.1); Carbon Dioxide 27.5 mmol/L (21.0-32.0); Chloride 102 mmol/L (98-107); Estimated GFR (African America >60 (>=60); Estimated GFR (Non-African Ame >60 (>=60); Globulin 3.4 g/dL; Glucose 141 mg/dL (74-106); Potassium 3.5 mmol/L (3.5-5.1); Sodium 137 mmol/L (136-145); Total Protein 6.6 g/dL (6.4-8.2)
--- NOTE | 2024-01-23 09:06 | P.DS_ITS ---
DS: Providers Provider Date of admission: 01/22/24 09:34 Primary care physician: Non-Staff Physician, Attending physician on admission: Maximilian Vieira Discharging clinician: Shonna Keating DS: Diagnosis Discharge Diagnosis (1) Acute pancreatitis: Qualifiers: Acute pancreatitis complication: uninfected necrosis Pancreatitis type: unspecified pancreatitis type Qualified Code(s): K85.91 - Acute pancreatitis with uninfected necrosis, unspecified (2) SIRS (systemic inflammatory response syndrome): (3) Depression: Qualifiers: Depression Type: unspecified Qualified Code(s): F32.A - Depression, unspecified (4) Fatty liver: DS: Summary Hospital Course Hospital Course: Patient is a 28 y.o white male with past medical history of depression treated with Effexor, Had episode of alcohol related Pancreatitis many years ago, patient denies alcohol use now. Patient was in his normal state of health when he developed diffuse abdominal pain, RUQ. No vomiting, diarrhea, but lack of appetite. He presented to the ER as his abdominal pain because he could not manage at home. He denies fevers or chills, recent travel or sick contacts. ER findings: CT: hepatic steatosis, Acute pancreatitis without abscess or necrosis, WBC's 16, lipase 3965, Amylase 1643, Normal liver function, Patient has been on IVF, NS @150, getting zofran, dilaudid and Fentanyl for pain control. Patient was kept NPO until yesterday evening tolerated clears and advanced to full liquid today. IVF of LR @200/hr, received pain control with Dilaudid, Fentanyl, and Toradol. lipids showed high triglyceride level. TSH and hemoglobin A1C normal range. UA was negative and blood cultures. UDS negative. Continue zofran. Normal liver enzymes but with significant elevation of WBC's, pain, and lipase 3965, I checked RUQ ultrasound given history of steatosis, concern for acute GB disease but nothing acute present on US but the pancreatitis. This was also noted on CT scan. AT the time of discharge patient is tolerating a full liquid diet, Lipase is 2601 withWBC's 15.1 and normal liver enzymes. he has remained Afebrile. Patient has had no n/v and pain is controlled with PO norco. Patient wishes to go home. I have discussed to return to the ER if symptoms worsen, he is to follow a low fat, bland diet for the next several days. He is to have close follow up with PCP. [facility] also reviewed given 3 days of [place] with no refills, also sent Rx for zofran and stool softners. Patient understands the discharge plan, patient recovered symptomatically faster than anticipated. Status at Discharge Functional status at discharge: independent ambulation Overall status at discharge: patient is progressing back to baseline Time Spent with Patient Time attestation: Total time spent providing and/or coordinating discharge services: Time spent: greater than 30 minutes Exam Narrative Exam Narrative: General: Patient is alert, and oriented to person, place and time Skin: no visible rashes, or ulcers Head: atraumatic, acephalic Eyes: PERRLA, no nystagmus present, conjunctiva clear, no scleral icterus Ears: normal gross auditory acuity Heart: Normal rate and rhythm, no murmurs/rubs/gallops Lungs: no audible wheezes, crackles and normal breath sounds all lung gipson Abdomen: diminished audible bowel sounds, mild distension, no rebound/guarding/ or rigidity Musculoskeletal: no swelling bilateral lower extremities Neuro: CN II-X grossly intact Constitutional Vital Signs, click to edit/add: Last Vital Signs Temp 97.8 F 01/23/24 04:11 Pulse 112 H 01/23/24 08:06 Resp 16 01/23/24 04:11 BP 145/80 H 01/23/24 04:11 Pulse Ox 93 L 01/23/24 08:06 O2 Del Method Room Air 01/23/24 04:30 O2 Flow Rate 2 01/22/24 23:26 DS: Data Data Completed and Pending Labs on day of discharge: Labs from last 24 hours 01/23/24 01/22/24 04:38 04:28 WBC 15.4 H RBC 5.02 Hgb 14.6 Hct 43.6 MCV 86.9 MCH 29.1 MCHC 33.5 RDW 12.4 Plt Count 245 MPV 10.3 Neut % (Auto) 85.3 H Lymph % (Auto) 6.4 L [place] % (Auto) 7.1 Eos % (Auto) 0.5 L Baso % (Auto) 0.2 Neut # (Auto) 13.1 H Lymph # (Auto) 1.0 L [place] # (Auto) 1.1 H Eos # (Auto) 0.1 Baso # (Auto) 0.0 Abs Immat Gran (auto) 0.07 H Imm/Tot Granulo (auto) 0.5 Sodium 137 Potassium 3.5 Chloride 102 Carbon Dioxide 27.5 Anion Gap 11.0 BUN 11.0 Creatinine 0.83 Est GFR ( Amer) >60 Est GFR (Non-Af Amer) >60 BUN/Creatinine Ratio 13.3 Glucose 141 H Calcium 8.4 L Total Bilirubin 1.0 AST 33 ALT 48 Alkaline Phosphatase 39 L Total Protein 6.6 Albumin 3.2 L Globulin 3.4 Albumin/Globulin Ratio 0.9 Triglycerides 320 H Cholesterol 239 H LDL Cholesterol, Calc 129.0 VLDL Cholesterol 64.0 HDL Cholesterol 46 Cholesterol/HDL Ratio 5.2 Lipase 2601.0 H* TSH & Free T4 Interp 1.620 Ethanol Quant <3 Discharge Plan Discharge Disposition: Home, Self-Care Condition: Good Discharge Medications: New polyethylene glycol 3350 17 gram Powder In Packet 17 g PO QD PRN (Reason: Constipation) 10 Days Qty: 1 0RF ondansetron HCl 4 mg tablet 4 mg PO Q8H PRN (Reason: nausea and vomiting) 4 Days Qty: 20 0RF hydrocodone-acetaminophen 5-325 mg Tablet 1 tab PO Q4H PRN (Reason: Pain) 3 Days Qty: 18 0RF Rx Instructions: K85.9 Acute Pancreatitis docusate sodium 100 mg capsule 100 mg PO BID 10 Days Qty: 20 0RF Continued venlafaxine 75 mg capsule,extended release 24hr 75 mg PO DAILY Activity: increase activity as tolerated Diet: low fat, low cholesterol Print Language: Swedish Patient Instructions: Hydrocodone/Acetaminophen (By mouth), Ondansetron (By mouth) (Richard Ramos Zuplenz), Pancreatitis (DC) Forms: Portal Instructions Follow Up Appointments: patient to make own follow up / new pt appointment at [facility] in [place] (per Zara in utilization) Discharge location: Home
--- NOTE | 2024-01-23 11:24 | CM.NOTE ---
Rounds made with Dr. Keating. Plan for discharge today if tolerates a soft diet. Will need to follow up with a physician in a week. Information given regarding [facility] in [place]--significant other looking for physicians in area as well . Alicia verbalizes understanding and will follow up with a physician in a week.
--- NOTE | 2024-01-26 11:57 | CM.DCFOLLOWU ---
1st attempt 01/26/24, no answer
--- NOTE | 2024-01-27 13:13 | CM.DCFOLLOWU ---
Person spoke with:patient How are you feeling? not well, at [facility] How is your pain? getting better now Did you understand your discharge instructions? yes Do you have any questions about your discharge instructions? no Were you given any prescriptions at discharge? yes Were you able to get your prescriptions filled? went to alternate hospital Do you understand how to take your medications as ordered? went to [facility] Do you have any questions about your follow up appointment and do you plan to keep your follow up appointment? no, patient is now at [facility] Is there anything else that you would like to discuss? no Questions/Comments/Concerns/Other: no
== END 2024-01-23 11:47 | disposition home or self-care (01) | DRG 282 ==
LOC: ER 18:37 → MS 19:56
PROVIDERS: Nurse Practitioner Acute Care; Physician Assistant; Admitting Provider Family Medicine; Emergency Provider Emergency Medicine; Family Provider Family Medicine; Visit Provider Family Medicine
DX: K85.91 Acute pancreatitis with uninfected necrosis, unspecified (principal); R65.10 Systemic inflammatory response syndrome (SIRS) of non-infectious origin without acute organ dysfunction; F32.A Depression, unspecified; K76.0 Fatty (change of) liver, not elsewhere classified; Z79.899 Other long term (current) drug therapy
CPT/HCPCS: 36415; 74177; 76705; 80053; 80061; 80307; 80320; 81001; 82150; 83036; 83605; 83690; 84443; 85007; 85025; 85027; 94761; 96361; 96374; 96375; 96376; 99285; G0378; J1170; J1885; J2270; J2405; J2765; J3010; Q9967

== ENCOUNTER 2024-10-15 13:47 | Outpatient (OUT) | payer MEDICAID, SELFPAY ==
--- NOTE | 2024-10-15 16:41 | NUTR.NU ---
Rashad has experienced 3 bouts of pancreatitis since February,, and requested consult for dietary guidelines in hopes of avoiding further episodes. Obtained information re current dietary habits; pt has already made some positive diet changes to improve his overall health, e.g., limiting red meats and avoiding alcohol. Explained importance of limiting fats, particularly triglycerides, for pancreatic/gall bladder/heart health. Provided handouts: Diet Guidelines for Pancreatitis, Planning Healthy Meals, Fats: the Good, the Bad, and the Ugly, Low Cholesterol/Low Triglycerides - Foods to Use, Foods to Avoid, and 10 Tips to Help You Eat More Seafood. Also provided Low Fiber Nutrition Therapy in case pt experiences active pancreatitis in the future, and Dietitian contact information for any questions or concerns.
== END 2024-10-15 13:48 | disposition home or self-care (01) ==
LOC: MN 13:48
PROVIDERS: Family Provider Family Medicine
DX: K85.90 Acute pancreatitis without necrosis or infection, unspecified (principal)
CPT/HCPCS: 97802